=== PATIENT | male | born 1995 | race Caucasian/White ===

== ENCOUNTER 2016-10-10 19:16 | Inpatient (IN) | payer BC ==
[~2016-10-10] VITALS: Ht 180.3 cm; Wt 103.0 kg
[~2016-10-10 19:16] MED LIST: HYDR25SU20 PR; OMEP40CA PO
[2016-10-10] MEDS ORDERED: SODIUM CHLORIDE 0.9% 1000ML 1,000 ML IV STA (21:35)
[2016-10-10] MEDS ORDERED: ADAL1KIT SC (21:41)
[2016-10-10] MEDS ORDERED: PRED-301 PO (21:41)
[2016-10-10] MEDS ORDERED: OPTIRAY 320 IV PRN (21:45)
--- NOTE | 2016-10-10 22:27 | EMERGENCY ROOM VISIT NOTE ---
History First contact with patient: 21:26 Chief Complaint: GI ASSESSMENT Stated Complaint: ULCERATIVE COLITIS Nursing Triage Summary: Pt c/o "problems going to the bathroom a lot. I also have diarrhea. sometimes it hits me right away and sometimes I can't". Associated nausea. cramping pain when trying to go to bathroom. Pt reports ongoing issues for the last 4 days. Hx of Ulcerative colitis History of Present Illness The patient is a 21 year old male who presents to the Emergency Room with complaints of diarrhea and abdominal cramping for the past four days. He states he is having loose and watery stools, 3-4 per day, not grossly bloody or black, not painful. He does note a pink tinge to his bowel movements since they have become more watery. He has some associated nausea with bowel movements, but denies vomiting. He also complains of generalized fatigue for several weeks. He has history of ulcerative colitis, is followed by Dr. Weber with GI, currently treated on Prednisone 20 mg daily, and Humira which he was changed to about one month ago because his previous medication "was not working and I was having a lot of problems with my colitis." He does also complain of mild LLQ pain since yesterday. He denies any fevers, chills, chest pain, shortness of breath, dizziness or passing out, vomiting, urinary symptoms. Review of Systems A complete 10 point review of systems was reviewed with the patient with pertinent positives and negatives as per history of present illness. All else were negative. Social History Smoking Status: Never Smoker Current/Historical Medications Scheduled Adalimumab (Humira), 1 DOSE SC UD Prednisone (Prednisone), 5 MG PO UD Allergies Coded Allergies: No Known Allergies (Unverified , 12/05/15) Physical Exam Vital Signs Date Time Temp Pulse Resp B/P (MAP) Pulse Ox O2 Delivery O2 Flow Rate FiO2 10/10/16 23:30 75 18 124/55 97 Room Air 10/10/16 19:25 37.1 89 18 125/82 98 Room Air Physical Exam CONSTITUTIONAL: No acute distress. Nontoxic appearing. Well hydrated. Well appearing and well nourished. Alert and oriented X 4 with normal affect. HEENT: Normocephalic, atraumatic. Pupils equal, round and reactive to light, EOMI. TMs normal. Pharynx normal. Pale conjunctiva. NECK: Supple, full active range of motion without discomfort. RESPIRATORY: Clear to auscultation bilaterally with no wheezing, crackles, rhonchi or stridor. Equal expansion bilaterally. CARDIOVASCULAR: Regular rate and rhythm with no murmurs, rubs or gallops. Normal peripheral perfusion. No edema. GASTROINTESTINAL: Soft, nondistended. Bowel sounds present in all quadrants. Mild left lower quadrant tenderness to palpation, no rebound, no guarding. Digital rectal exam performed, nontender on exam, no masses, minimal stool in the rectal vault, guaiac positive. MUSCULOSKELETAL: Full range of motion of all joints without discomfort. INTEGUMENTARY: No rash or other significant dermatologic conditions noted. NEUROLOGIC: Cranial nerves II-XII grossly intact. No focal neurologic deficits noted. Medical Decision & Procedures Laboratory Results 10/10/16 22:00 Red Blood Count 4.35, Mean Corpuscular Volume 67.6, Mean Corpuscular Hemoglobin 16.8, Mean Corpuscular Hemoglobin Concent 24.8, Mean Platelet Volume 8.4, Neutrophils (%) (Auto) 91.0, Lymphocytes (%) (Auto) 6.7, Monocytes (%) (Auto) 1.8, Eosinophils (%) (Auto) 0.0, Basophils (%) (Auto) 0.3, Neutrophils # (Auto) 5.58, Lymphocytes # (Auto) 0.41, Monocytes # (Auto) 0.11, Eosinophils # (Auto) 0.00, Basophils # (Auto) 0.02 10/10/16 22:00 Test 10/10/16 00:00 10/10/16 22:00 Urine Color YELLOW Urine Appearance CLEAR (CLEAR) Urine pH 7.5 (4.5-7.5) Urine Specific [place] 1.006 (1.000-1.030) Urine Protein NEG (NEG) Urine Glucose (UA) NEG (NEG) Urine Ketones NEG (NEG) Urine Occult Blood NEG (NEG) Urine Nitrite NEG (NEG) Urine Bilirubin NEG (NEG) Urine Urobilinogen NEG (NEG) Urine Leukocyte Esterase NEG (NEG) White Blood Count 6.13 K/uL (4.8-10.8) Red Blood Count 4.35 M/uL (4.7-6.1) Hemoglobin 7.3 g/dL (14.0-18.0) Hematocrit 29.4 % (42-52) Mean Corpuscular Volume 67.6 fL (80-100) Mean Corpuscular Hemoglobin 16.8 pg (25-34) Mean Corpuscular Hemoglobin Concent 24.8 g/dl (32-36) Platelet Count 420 K/uL (130-400) Mean Platelet Volume 8.4 fL (7.4-10.4) Neutrophils (%) (Auto) 91.0 % Lymphocytes (%) (Auto) 6.7 % Monocytes (%) (Auto) 1.8 % Eosinophils (%) (Auto) 0.0 % Basophils (%) (Auto) 0.3 % Neutrophils # (Auto) 5.58 K/uL (1.4-6.5) Lymphocytes # (Auto) 0.41 K/uL (1.2-3.4) Monocytes # (Auto) 0.11 K/uL (0.11-0.59) Eosinophils # (Auto) 0.00 K/uL (0-0.5) Basophils # (Auto) 0.02 K/uL (0-0.2) RDW Standard Deviation 45.9 fL (36.4-46.3) RDW Coefficient of Variation 18.5 % (11.5-14.5) Immature Granulocyte % (Auto) 0.2 % Immature Granulocyte # (Auto) 0.01 K/uL (0.00-0.02) Hypochromasia PRESENT Microcytosis PRESENT Tear Drop Cells 1+ Ovalocytes 2+ Schistocytes OCCASIONAL Erythrocyte Sedimentation Rate 23 mm/hr (0-14) Anion Gap 9.0 mmol/L (3-11) Est Creatinine Clear Calc Drug Dose 127.6 ml/min Estimated GFR () 109.1 Estimated GFR (Non- 94.1 BUN/Creatinine Ratio 7.6 (10-20) Calcium Level 8.9 mg/dl (8.5-10.1) Total Bilirubin 0.3 mg/dl (0.2-1) Aspartate Amino Transf (AST/SGOT) 9 U/L (15-37) Alanine Aminotransferase (ALT/SGPT) 21 U/L (12-78) Alkaline Phosphatase 38 U/L (45-117) C-Reactive Protein 0.72 mg/dl (0-0.29) Total Protein 7.5 gm/dl (6.4-8.2) Albumin 3.8 gm/dl (3.4-5.0) Globulin 3.7 gm/dl (2.5-4.0) Albumin/Globulin Ratio 1.0 (0.9-2) Lipase 122 U/L (73-393) Medications Administered Medications (Trade) Dose Ordered Sig/Terri Route Start Time Stop Time Status Last Admin Dose Admin Sodium Chloride 1,000 ml @ 999 mls/hr Q1H1M STAT IV 10/10/16 21:35 10/10/16 22:35 DC 10/10/16 22:06 999 MLS/HR Medical Decision CC: Patient presenting with complaint of diarrhea and abdominal cramping Interpretation of Labs: No leukocytosis, significant anemia, no significant electrolyte abnormalities, normal renal function, normal liver function. No UTI. Elevated inflammatory markers. Differential Diagnosis: Includes, but not limited to ulcerative colitis flare, intra-abdominal abscess, bowel perforation, colitis, gastroenteritis, diverticulitis, dehydration, electrolyte abnormalities, anemia Medication Reconciliation: I attest that I have personally reviewed the patient' s current medication list. Vital signs review: I reviewed the patient's vital signs and interpret them as follows: T: Afebrile; BP: Normotensive; HR: WNL; RR: WNL; Pulse Ox: WNL on RA. Blood pressure screening: The patient was found to have normal blood pressure on screening and does not require follow-up for repeat blood pressure check. Summary: Patient was evaluated at bedside, history of physical exam performed. Patient is alert and oriented, no acute distress and nontoxic appearing. He appears well-hydrated, but does appear slightly pale. He does have mild tenderness in the left lower quadrant to palpation. Rectal exam with guaiac positive stool. Patient discussed with Dr. Mathur, who agrees with my assessment and plan. Labs reviewed, concerning for significant anemia, suspect this is more likely chronic or subacute in nature, given elevated RDW count and gradual onset of symptoms of fatigue. Type and cross ordered, plan for 2 units PRBCs to be transfused. Awaiting this from the blood bank. Patient consent signed. CT reviewed, consistent with acute flare of colitis with wall thickening and pericolic inflammatory changes involving the descending and rectosigmoid colon. Prominent lymph nodes also noted along the adjacent mesentery. No free air or free fluid to suggest perforation, no abscess noted, no bowel obstruction. Patient discussed with Dr. Delong, hospitalist, who agrees to evaluate the patient for admission. Patient reassessed multiple times throughout ED stay, he remained stable and without any complaints. Impression Primary Impression: Acute ulcerative colitis with rectal bleeding Additional Impression: Anemia Departure Information Referrals No Doctor, Assigned (PCP) Patient Instructions [facility] Problem Qualifiers Additional Impression: Anemia Anemia type: unspecified type Qualified Codes: D64.9 - Anemia, unspecified
[2016-10-10 22:36] LABS: BUN/CREATININE RATIO 7.6 (10-20); CREATININE 1.1 mg/dl (0.60-1.40)
[2016-10-10 22:46] LABS: CALCIUM 8.9 mg/dl (8.5-10.1)
[2016-10-10 22:52] LABS: C-REACTIVE PROTEIN 0.72 mg/dl (0-0.29)
[2016-10-10 23:02] LABS: HEMATOCRIT 29.4 % (42-52); MEAN CELL VOLUME 67.6 fL (80-100); MEAN CORPUSCULAR HEMOGLOBIN 16.8 pg (25-34); MEAN CORPUSCULAR HGB CONC 24.8 g/dl (32-36); MEAN PLATELET VOLUME 8.4 fL (7.4-10.4); PLATELET COUNT 420 K/uL (130-400); RED BLOOD COUNT 4.35 M/uL (4.7-6.1); WHITE BLOOD COUNT 6.13 K/uL (4.8-10.8)
[2016-10-10 23:14] LABS: URINE APPEARANCE CLEAR (CLEAR); URINE BILIRUBIN NEG (NEG); URINE COLOR YELLOW; URINE NITRITE NEG (NEG); URINE PH 7.5 (4.5-7.5); URINE SPECIFIC GRAVITY 1.006 (1.000-1.030); UROBILINOGEN NEG (NEG); ZZUR CULT IF INDIC CLEAN CATCH NO
[2016-10-10 23:16] LABS: MANUAL MICROSCOPIC REQUIRED? NO; REVIEW REQ? NO
[2016-10-10 23:42] LABS: BASO % 0.3 %; BASO ABS # 0.02 K/uL (0-0.2); COMPLETE YES; HYPOCHROMIA PRESENT; IG% 0.2 %; LYMPH % 6.7 %; LYMPH ABS # 0.41 K/uL (1.2-3.4); MICROCYTOSIS PRESENT; MONO % 1.8 %; OVALOCYTES 2+; SCHISTOCYTES OCCASIONAL; TEAR DROP CELLS 1+
[2016-10-11] VITALS (12 sets, daily range): BP systolic 100–130; BP diastolic 62–72; PULSE 60–83; TEMP 36.3–37; O2SAT 95–99; Ht 180.3 cm; Wt 103.0 kg
[2016-10-11 00:58] LABS: MAGNESIUM 2.6 mg/dl (1.8-2.4)
[2016-10-11] MEDS ORDERED: KETOROLAC TROMETHAMINE 30 MG/ML VIAL IV PRN (01:30)
[2016-10-11] MEDS ORDERED: ONDANSETRON INJ 2 MG/ML 2 ML VIAL IV PRN (01:30)
[2016-10-11] MEDS ORDERED: LORAZEPAM 2 MG/ML 1 ML VIAL IV PRN (01:30)
[2016-10-11] MEDS ORDERED: ACETAMINOPHEN 325 MG TAB PO PRN (01:30)
[2016-10-11] MEDS ORDERED: PROMETHAZINE HCL INJ 12.5 MG in SODIUM CHLORIDE 0.9% 50ML 50 ML IV PRN (01:30)
[2016-10-11] MEDS ORDERED: TRAMADOL HCL 50 MG TAB PO PRN (01:30)
[2016-10-11] MEDS ORDERED: MoRPHine SULFATE 4 MG/ML 1 ML CARP\\VIAL IV PRN (01:30)
[2016-10-11] MEDS: METHYLPREDNISOLONE IV 20 MG in SYRINGE 0 ML IV SCH ×3 (02:41→17:54)
--- NOTE | 2016-10-11 04:47 | HISTORY & PHYSICAL EXAMINATION ---
DATE OF ADMISSION: 10/11/2016 PRIMARY CARE DOCTOR: Aline Coronado PA-C. CHIEF COMPLAINT: Abdominal pain. HISTORY OF PRESENT ILLNESS: History is obtained from the patient and records. Medical history is significant for ulcerative colitis on chronic steroid and Humira tx. Patient switched to a [facility] GI specialist last month. Started on Humira, steroid decreased as per px. Last few days, the patient noted achy hypogastric pain, nausea, no emesis, loose watery stools, not grossly bloody. No chest pain. Admits to some shortness breath on exertion. No cough sx. Worsening abdominal sx despite px attempt to double his prednisone dose at home. Patient was brought to the Emergency Room. MEDICAL HISTORY: As above. Colonoscopy November 2015 showed a congested mucosa of the rectum, rectosigmoid colon and descending colon. OPERATIONS: Tonsillectomy, adenectomy, some toe-nail procedure. HOME MEDICATIONS: Include Humira, prednisone. ALLERGIES: No known drug allergies. FAMILY HISTORY: Colon cancer. PERSONAL AND SOCIAL HISTORY: Nonsmoker, no chronic ETOH intake, [employer] employee. REVIEW OF SYSTEMS: As per HPI, all other ROS negative. PHYSICAL EXAMINATION: VITAL SIGNS: Blood pressure was noted to be 130/69, pulse rate 90, RR 18, temperature 36.9, sats 99 on room air. GENERAL: Noted to be slightly anxious, no respiratory distress. obese. SKIN : pallor HEENT: Pale palpebral conjunctivae. Dry mucosa. NECK: No JVD. Supple. CHEST: Clear to auscultation. HEART: Regular rate and rhythm. ABDOMEN: No overt abdominal tenderness. EXTREMITIES: No edema. no tenderness NEUROLOGIC: No gross focality. LABORATORY DATA: Hemoglobin 7.3, hematocrit 29.4, white cell count 10, platelets 420. Sodium 141, potassium 4, chloride 106, CO2 26, BUN noted to be 8, creatinine 1.1, glucose 117. Stool hemoccult done in the ER was heme positive. Outpatient hemoglobin Nov 2015 was noted to be 14.5; February 2016 was 11.7. IMAGING DATA: CT of the abdomen and pelvis initial read showed wall thickening and pericolic inflammatory changes involving the descending and rectosigmoid colon consistent with colitis, prominent lymph nodes along the adjacent mesentery. Chest x-ray as per my interpretation : no infiltrate, borderline cardiac enlargement. ASSESSMENT: 1. Colitis inflammatory bowel disease flare-up rule out Clostridium difficile diarrhea px is not toxic 2. Symptomatic anemia secondary to slow LGIB. PLAN: GMF stool C. difficile. Solu-Medrol IV for now for IBD flare up GI consult RE colitis Transfuse pRBC for symptomatic anemia. DVT prophylaxis, SCDs RE anemia 2 to slow LGIB Full code. MTDD
--- NOTE | 2016-10-11 06:35 | DIAGNOSTIC IMAGING REPORT ---
CT ABD/PELVIS IV CONTRAST ONLY CLINICAL HISTORY: Diarrhea and left lower quadrant abdominal pain. History of ulcerative colitis. COMPARISON STUDY: None. TECHNIQUE: Following the IV administration of 92 mL of Optiray-320, CT scan of the abdomen and pelvis was performed from the lung bases to the proximal femurs. Images are reviewed in the axial, sagittal, and coronal planes. IV contrast was administered without complication. CT DOSE: 541.76 mGy.cm FINDINGS: Lower chest: The heart is normal in size and configuration, without pericardial effusion. The lung bases and pleural spaces are clear. Liver: The contrast-enhanced liver is normal in size, contour, and attenuation. There is no intrahepatic biliary ductal dilatation. The hepatic veins and portal veins are patent. Gallbladder: Contracted Spleen: Normal in size and attenuation. Pancreas: Unremarkable. Adrenal glands: Unremarkable. Kidneys: There is symmetric renal cortical enhancement. The kidneys are normal in size without hydronephrosis. Bowel: There are no transition zones indicate bowel obstruction. Bowel evaluation is somewhat limited given the lack of orally administered contrast. The appendix appears normal. There is mild wall thickening involving the descending colon and rectosigmoid. Findings are consistent with a colitis. Peritoneum: There is no intraperitoneal free air or abdominal ascites. Vasculature: The abdominal aorta is normal in course and caliber. Adenopathy: There are mildly prominent lymph nodes within the mesentery the left colon. These are likely reactive. Pelvic viscera: The bladder, and pelvic viscera are unremarkable. Skeletal structures: No destructive osseous lesions are seen. IMPRESSION: 1. No evidence of bowel obstruction. No evidence of free air 2. Normal appendix 3. Bowel wall thickening involving the descending colon and rectosigmoid. The findings are consistent with a colitis (infectious versus inflammatory bowel disease) Electronically signed by: Jaime Jimenes M.D. 10/11/2016 6:34 AM Dictated Date/Time: 10/11/2016 6:31 AM
[2016-10-11 06:41] LABS: HEMATOCRIT 28.2 % (42-52); MEAN CELL VOLUME 68.8 fL (80-100); MEAN CORPUSCULAR HEMOGLOBIN 17.6 pg (25-34); MEAN CORPUSCULAR HGB CONC 25.5 g/dl (32-36); MEAN PLATELET VOLUME 8.9 fL (7.4-10.4); PLATELET COUNT 357 K/uL (130-400); WHITE BLOOD COUNT 4.37 K/uL (4.8-10.8)
[2016-10-11 06:46] LABS: INR 0.9 (0.9-1.1); PARTIAL THROMBOPLASTIN RATIO 0.9; PROTHROMBIN TIME (PATIENT) 10.1 SECONDS (9.0-12.0)
--- NOTE | 2016-10-11 06:57 | DIAGNOSTIC IMAGING REPORT ---
CHEST ONE VIEW PORTABLE CLINICAL HISTORY: sob dyspnea COMPARISON STUDY: No previous studies for comparison. FINDINGS: The bones soft tissues and hemidiaphragms are normal. The cardiomediastinal silhouette is normal. The lungs are clear. The pulmonary vasculature is normal. IMPRESSION: Negative chest. Electronically signed by: Maynor Chandler M.D. 10/11/2016 6:56 AM Dictated Date/Time: 10/11/2016 6:56 AM
[2016-10-11 07:07] LABS: BASO % 0.5 %; BASO ABS # 0.02 K/uL (0-0.2); COMPLETE YES; EOS % 0.2 %; HYPOCHROMIA PRESENT; IG% 0.2 %; LYMPH % 12.6 %; LYMPH ABS # 0.55 K/uL (1.2-3.4); MICROCYTOSIS PRESENT; MONO % 4.8 %; NEUT % 81.7 %; OVALOCYTES 1+; SCHISTOCYTES 1+; TEAR DROP CELLS 1+
[2016-10-11 07:15] LABS: FERRITIN 1.5 ng/ml (8.0-388.0)
--- NOTE | 2016-10-11 09:50 | Gastrointestinal Consultation ---
Gastrointestinal Consultation Date of Consultation: Oct 11, 2016 Attending Physician: Dr. Delong Consulting Physician: Dr. Rice/RADHA Franco Reason for Consultation: Colitis History of Present Illness Patient is a 21 year old male with a history of ulcerative colitis previously diagnosed by Dr. Montes in April of 2015. Initially, his disease was limited to the rectum and he was treated with rectal steroids as he was unable to obtain Canasa from insurance. Despite treatment, he had ongoing symptoms and was noted to have left-sided colitis. Due to this, he was treated with oral corticosteroids and Lialda. Despite this, symptoms persisted and active disease was evident on imaging. Therefore, he was recommended to start Humira. The patient had decided to transfer GI care to our office due to frustration with ongoing symptoms and was seen by me on September 05, 2016. At that time, he was just about to start Humira induction therapy. I had ordered laboratory testing with CBC, CMP and CRP at that time but patient did not have testing performed. After starting the induction injections, the patient states he was asymptomatic but after one week began to have returning abdominal pain as well as fecal urgency. Bowel frequency was 3 times per day. No overt GIB but he does report progressive fatigue. He states he continues to feel his rectum "tensing" with the need to defecate but he is not having any significant diarrhea. At present, he denies any abdominal pain, fever or chills, nausea or vomiting, arthralgias, myalgias, eye pain/redness or fatigue. Laboratory testing on arrival demonstrated a profound microcytic anemia with a hemoglobin of 7.3 and hematocrit of 29.4.. Platelet count was elevated at 420 and CRP was elevated at 0.72. CT imaging was obtained and consistent with persistent left-sided colitis. He has been started on IV corticosteroids and C Diff testing has been ordered. Patient remains on a clear liquid diet. Past Medical/Surgical History Medical Problems: (1) Acute ulcerative colitis with rectal bleeding Status: Acute (2) Anemia Status: Acute Past Medical History: 1. Ulcerative colitis 2. Varicella 3. Ingrown toenail Past Surgical History: 1. T&A 2. Toe nail surgery 3. Complete colonoscopy 4. Oral tooth extraction Family History PGF with colon cancer. Negative for IBD Social History Smoking Status: Never Smoker Alcohol Use: none Drug Use: none Marital Status: single Occupation Status: employed Allergies Coded Allergies: No Known Allergies (Unverified , 12/05/15) Current Medications Home Meds and Scripts Medications Dose Route/Sig Max Daily Dose Days Date Category Dose Instructions Prednisone 5 Mg Tab 5 Mg PO UD 10/10/16 Reported TAKE THIS MEDICATION DAILY MD DIRECTS Humira (Adalimumab) 40 Mg/0.8 Ml Kit 1 Dose SC UD 10/10/16 Reported STARTED KIT PRESCRIBED 09/09/2016, TAKE MD DIRECTS Review of Systems See HPI for pertinent positives & negatives. A total of 10 systems reviewed and were otherwise negative. Physical Exam Date Time Temp Pulse Resp B/P (MAP) Pulse Ox O2 Delivery O2 Flow Rate FiO2 10/11/16 08:15 Room Air 10/11/16 07:22 37.0 67 16 100/62 (75) 97 Room Air 10/11/16 05:00 36.8 65 18 111/68 97 10/11/16 04:30 36.7 79 20 120/70 99 10/11/16 03:56 36.7 70 18 116/71 98 10/11/16 03:30 36.8 83 20 115/72 98 10/11/16 03:15 36.9 60 18 117/69 98 10/11/16 03:05 36.8 66 20 121/70 98 10/11/16 03:00 36.8 66 20 121/70 98 10/11/16 01:40 36.9 71 18 130/69 99 Room Air 10/11/16 01:32 71 18 139/76 96 10/11/16 00:57 68 18 128/73 97 Room Air 10/10/16 23:30 75 18 124/55 97 Room Air 10/10/16 19:25 37.1 89 18 125/82 98 Room Air General Appearance: WD/WN, no apparent distress Eyes: EOMI ENT: hearing grossly normal Neck: supple Respiratory/Chest: lungs clear, normal breath sounds, no respiratory distress Cardiovascular: regular rate, rhythm, no gallop, no murmur Abdomen: normal bowel sounds, non tender, soft Extremities: no pedal edema Neurologic/Psych: alert, normal mood/affect, oriented x 3 Skin: warm/dry Laboratory Results Last 24 Hours Test 10/10/16 22:00 10/11/16 05:51 White Blood Count 6.13 K/uL 4.37 K/uL Red Blood Count 4.35 M/uL 4.10 M/uL Hemoglobin 7.3 g/dL 7.2 g/dL Hematocrit 29.4 % 28.2 % Mean Corpuscular Volume 67.6 fL 68.8 fL Mean Corpuscular Hemoglobin 16.8 pg 17.6 pg Mean Corpuscular Hemoglobin Concent 24.8 g/dl 25.5 g/dl Platelet Count 420 K/uL 357 K/uL Mean Platelet Volume 8.4 fL 8.9 fL Neutrophils (%) (Auto) 91.0 % 81.7 % Lymphocytes (%) (Auto) 6.7 % 12.6 % Monocytes (%) (Auto) 1.8 % 4.8 % Eosinophils (%) (Auto) 0.0 % 0.2 % Basophils (%) (Auto) 0.3 % 0.5 % Neutrophils # (Auto) 5.58 K/uL 3.57 K/uL Lymphocytes # (Auto) 0.41 K/uL 0.55 K/uL Monocytes # (Auto) 0.11 K/uL 0.21 K/uL Eosinophils # (Auto) 0.00 K/uL 0.01 K/uL Basophils # (Auto) 0.02 K/uL 0.02 K/uL RDW Standard Deviation 45.9 fL 48.5 fL RDW Coefficient of Variation 18.5 % 19.4 % Immature Granulocyte % (Auto) 0.2 % 0.2 % Immature Granulocyte # (Auto) 0.01 K/uL 0.01 K/uL Hypochromasia PRESENT PRESENT Microcytosis PRESENT PRESENT Tear Drop Cells 1+ 1+ Ovalocytes 2+ 1+ Schistocytes OCCASIONAL 1+ Erythrocyte Sedimentation Rate 23 mm/hr Sodium Level 141 mmol/L Potassium Level 4.0 mmol/L Chloride Level 106 mmol/L Carbon Dioxide Level 26 mmol/L Anion Gap 9.0 mmol/L Blood Urea Nitrogen 8 mg/dl Creatinine 1.10 mg/dl Est Creatinine Clear Calc Drug Dose 127.6 ml/min Estimated GFR () 109.1 Estimated GFR (Non- 94.1 BUN/Creatinine Ratio 7.6 Random Glucose 117 mg/dl Calcium Level 8.9 mg/dl Magnesium Level 2.6 mg/dl Total Bilirubin 0.3 mg/dl Aspartate Amino Transf (AST/SGOT) 9 U/L Alanine Aminotransferase (ALT/SGPT) 21 U/L Alkaline Phosphatase 38 U/L C-Reactive Protein 0.72 mg/dl Total Protein 7.5 gm/dl Albumin 3.8 gm/dl Globulin 3.7 gm/dl Albumin/Globulin Ratio 1.0 Lipase 122 U/L Absolute Reticulocyte Count 0.06 10^6/uL Percent Reticulocyte Count 1.4 % Prothrombin Time 10.1 SECONDS Prothromb Time International Ratio 0.9 Activated Partial Thromboplast Time 23.1 SECONDS Partial Thromboplastin Ratio 0.9 Iron Level 12 mcg/dl Total Iron Binding Capacity 391 mcg/dl Transferrin 309 mg/dl Transferrin % Saturation 3 % Ferritin 1.5 ng/ml Vitamin B12 Level 426 pg/mL Folate 14.59 ng/mL Impression Patient is a 21 year old male with a history of left-sided ulcerative colitis recently started on Humira admitted with symptomatic anemia and abdominal pain ( which has since resolved) and bowel urgency. Plan 1. Agree with C Diff study. Will add stool culture to exclude any infectious etiology to symptoms. 2. Continue clear liquid diet today with advancement to low residue as tolerated. 3. Continue IV Solu-Medrol 20 mg every 8 hours as ordered. 4. Continue Humira injections 40 mg subcutaneously every other week. 5. Supportive measures per primary team. Thank you for allowing us to participate in the care of this mutual patient. If you have any questions or concerns, please do not hesitate to contact us. Agree with RADHA Franco as above Abd: Soft, NT, ND, +BS Feeling much better this afternoon. Will advance diet as tolerated Continue current therapy
[2016-10-11 12:39] LABS: HEMATOCRIT 31.6 % (42-52)
[2016-10-11 18:41] LABS: HEMATOCRIT 31.3 % (42-52)
--- NOTE | 2016-10-11 21:10 | Progress Note ---
Medicine Progress Note Date & Time of Visit: Oct 11, 2016 at 15:20 . Subjective Admitted last night with flare of ulcerative colitis with associated severe anemia. Feels better today. No fever. No abdominal pain, nausea, vomiting. No melena or hematochezia. . Objective Last 8 Hrs Date Time Temp Pulse Resp B/P (MAP) Pulse Ox O2 Delivery O2 Flow Rate FiO2 10/11/16 20:00 Room Air 10/11/16 16:02 36.8 68 20 115/69 (84) 95 Room Air 10/11/16 16:00 97 Room Air Physical Exam: General- no distress Lungs- clear Heart- regular Abdomen- nondistended, normal bowel sounds, soft, nontender Extremities- no pretibial edema or calf tenderness Neuro- alert . Laboratory Results: Last 24 Hours Test 10/10/16 22:00 10/11/16 05:51 10/11/16 12:26 10/11/16 18:05 White Blood Count 6.13 K/uL 4.37 K/uL Red Blood Count 4.35 M/uL 4.10 M/uL Hemoglobin 7.3 g/dL 7.2 g/dL 7.9 g/dL 8.1 g/dL Hematocrit 29.4 % 28.2 % 31.6 % 31.3 % Mean Corpuscular Volume 67.6 fL 68.8 fL Mean Corpuscular Hemoglobin 16.8 pg 17.6 pg Mean Corpuscular Hemoglobin Concent 24.8 g/dl 25.5 g/dl Platelet Count 420 K/uL 357 K/uL Mean Platelet Volume 8.4 fL 8.9 fL Neutrophils (%) (Auto) 91.0 % 81.7 % Lymphocytes (%) (Auto) 6.7 % 12.6 % Monocytes (%) (Auto) 1.8 % 4.8 % Eosinophils (%) (Auto) 0.0 % 0.2 % Basophils (%) (Auto) 0.3 % 0.5 % Neutrophils # (Auto) 5.58 K/uL 3.57 K/uL Lymphocytes # (Auto) 0.41 K/uL 0.55 K/uL Monocytes # (Auto) 0.11 K/uL 0.21 K/uL Eosinophils # (Auto) 0.00 K/uL 0.01 K/uL Basophils # (Auto) 0.02 K/uL 0.02 K/uL RDW Standard Deviation 45.9 fL 48.5 fL RDW Coefficient of Variation 18.5 % 19.4 % Immature Granulocyte % (Auto) 0.2 % 0.2 % Immature Granulocyte # (Auto) 0.01 K/uL 0.01 K/uL Hypochromasia PRESENT PRESENT Microcytosis PRESENT PRESENT Tear Drop Cells 1+ 1+ Ovalocytes 2+ 1+ Schistocytes OCCASIONAL 1+ Erythrocyte Sedimentation Rate 23 mm/hr Sodium Level 141 mmol/L Potassium Level 4.0 mmol/L Chloride Level 106 mmol/L Carbon Dioxide Level 26 mmol/L Anion Gap 9.0 mmol/L Blood Urea Nitrogen 8 mg/dl Creatinine 1.10 mg/dl Est Creatinine Clear Calc Drug Dose 127.6 ml/min Estimated GFR () 109.1 Estimated GFR (Non- 94.1 BUN/Creatinine Ratio 7.6 Random Glucose 117 mg/dl Calcium Level 8.9 mg/dl Magnesium Level 2.6 mg/dl Total Bilirubin 0.3 mg/dl Aspartate Amino Transf (AST/SGOT) 9 U/L Alanine Aminotransferase (ALT/SGPT) 21 U/L Alkaline Phosphatase 38 U/L C-Reactive Protein 0.72 mg/dl Total Protein 7.5 gm/dl Albumin 3.8 gm/dl Globulin 3.7 gm/dl Albumin/Globulin Ratio 1.0 Lipase 122 U/L Absolute Reticulocyte Count 0.06 10^6/uL Percent Reticulocyte Count 1.4 % Prothrombin Time 10.1 SECONDS Prothromb Time International Ratio 0.9 Activated Partial Thromboplast Time 23.1 SECONDS Partial Thromboplastin Ratio 0.9 Iron Level 12 mcg/dl Total Iron Binding Capacity 391 mcg/dl Transferrin 309 mg/dl Transferrin % Saturation 3 % Ferritin 1.5 ng/ml Vitamin B12 Level 426 pg/mL Folate 14.59 ng/mL Assessment & Plan ULCERATIVE COLITIS Presented with abdominal pain and fecal urgency. Has noticed significant hematochezia in the past, but more recently lesser amounts of blood in stool. CT demonstrated bowel thickening of descending colon and rectosigmoid consistent with colitis. Hemoglobin was low as discussed below. Treated with bowel rest and intravenous methylprednisolone. Seen in consultation by GI. Continued therapy with IV methylprednisolone recommended. Advance diet as tolerated. ANEMIA Hemoglobin on admission 7.3 with MCV of 67. Iron levels low. Iron deficiency anemia secondary to chronic GI blood loss. Received 1 unit of packed RBCs. Will need iron supplementation. VTE PROPHYLAXIS No anticoagulants due to GI bleeding. SCD's. Ambulate. DISPOSITION Expected discharge to home. GI follow-up with RADHA Franco + Dr. Rice. . Current Inpatient Medications: Current Inpatient Medications Medications (Trade) Dose Ordered Sig/Terri Route Start Time Stop Time Status Last Admin Dose Admin Ioversol (Optiray 320) 100 ml UD PRN IV 10/10/16 21:45 10/14/16 21:44 Methylprednisolone Sodium Succinate 20 mg/Syringe 0.32 ml @ 1.5 mls/min Q8H IV 10/11/16 02:00 11/10/16 01:59 10/11/16 17:54 1.5 MLS/MIN Acetaminophen (Tylenol Tab) 650 mg Q4H PRN PO 10/11/16 01:30 11/10/16 01:29 Tramadol HCl (Ultram Tab) 25 mg Q6H PRN PO 10/11/16 01:30 11/10/16 01:29 Ketorolac Tromethamine (Toradol Inj) 30 mg Q6H PRN IV 10/11/16 01:30 10/16/16 01:29 Morphine Sulfate (MoRPHine SULFATE INJ) 4 mg Q6H PRN IV 10/11/16 01:30 10/25/16 01:29 Ondansetron HCl (Zofran Inj) 4 mg Q6H PRN IV 10/11/16 01:30 11/10/16 01:29 Promethazine HCl 12.5 mg/Sodium Chloride 50.5 ml @ 204 mls/hr Q6H PRN IV 10/11/16 01:30 11/10/16 01:29 Lorazepam (Ativan Inj) 0.5 mg Q4H PRN IV 10/11/16 01:30 11/10/16 01:29
[2016-10-12] MEDS: METHYLPREDNISOLONE IV 20 MG in SYRINGE 0 ML IV SCH (02:06)
[2016-10-12 07:10] LABS: HEMATOCRIT 30.4 % (42-52); MEAN CELL VOLUME 68.6 fL (80-100); MEAN CORPUSCULAR HEMOGLOBIN 17.6 pg (25-34); MEAN CORPUSCULAR HGB CONC 25.7 g/dl (32-36); MEAN PLATELET VOLUME 8.6 fL (7.4-10.4); PLATELET COUNT 382 K/uL (130-400); RED BLOOD COUNT 4.43 M/uL (4.7-6.1); WHITE BLOOD COUNT 5.84 K/uL (4.8-10.8)
[2016-10-12 07:33] LABS: BUN/CREATININE RATIO 9.6 (10-20); CALCIUM 8.5 mg/dl (8.5-10.1); CREATININE 0.93 mg/dl (0.60-1.40); POTASSIUM 4.3 mmol/L (3.5-5.1)
[2016-10-12 07:35] LABS: COMPLETE YES; HYPOCHROMIA PRESENT; IG% 0.2 %; LYMPH % 10.4 %; LYMPH ABS # 0.61 K/uL (1.2-3.4); MICROCYTOSIS PRESENT; MONO % 8.2 %; NEUT % 81.2 %; OVALOCYTES 1+; TEAR DROP CELLS 1+
[2016-10-12 07:54] VITALS: BP 118/73; PULSE 59; TEMP 36.9; O2SAT 97
[2016-10-12 08:00] VITALS: O2SAT 97
--- NOTE | 2016-10-12 10:26 | Progress Note ---
Medicine Progress Note Date & Time of Visit: Oct 12, 2016 at 10:15 . Subjective Doing well. No fever or chills. No abdominal pain, nausea, vomiting, diarrhea, melena, hematochezia. Ambulating. No extreme fatigue. . Objective Last 8 Hrs Date Time Temp Pulse Resp B/P (MAP) Pulse Ox O2 Delivery O2 Flow Rate FiO2 10/12/16 07:54 36.9 59 18 118/73 (88) 97 Room Air Physical Exam: General- no distress Lungs- clear Heart- regular Abdomen- nondistended, normal bowel sounds, soft, nontender Extremities- no pretibial edema or calf tenderness Neuro- alert . Laboratory Results: Last 24 Hours Test 10/11/16 12:26 10/11/16 18:05 10/12/16 06:45 Hemoglobin 7.9 g/dL 8.1 g/dL 7.8 g/dL Hematocrit 31.6 % 31.3 % 30.4 % White Blood Count 5.84 K/uL Red Blood Count 4.43 M/uL Mean Corpuscular Volume 68.6 fL Mean Corpuscular Hemoglobin 17.6 pg Mean Corpuscular Hemoglobin Concent 25.7 g/dl Platelet Count 382 K/uL Mean Platelet Volume 8.6 fL Neutrophils (%) (Auto) 81.2 % Lymphocytes (%) (Auto) 10.4 % Monocytes (%) (Auto) 8.2 % Eosinophils (%) (Auto) 0.0 % Basophils (%) (Auto) 0.0 % Neutrophils # (Auto) 4.74 K/uL Lymphocytes # (Auto) 0.61 K/uL Monocytes # (Auto) 0.48 K/uL Eosinophils # (Auto) 0.00 K/uL Basophils # (Auto) 0.00 K/uL RDW Standard Deviation 48.2 fL RDW Coefficient of Variation 19.2 % Immature Granulocyte % (Auto) 0.2 % Immature Granulocyte # (Auto) 0.01 K/uL Hypochromasia PRESENT Microcytosis PRESENT Tear Drop Cells 1+ Ovalocytes 1+ Sodium Level 144 mmol/L Potassium Level 4.3 mmol/L Chloride Level 109 mmol/L Carbon Dioxide Level 27 mmol/L Anion Gap 8.0 mmol/L Blood Urea Nitrogen 9 mg/dl Creatinine 0.93 mg/dl Est Creatinine Clear Calc Drug Dose 150.9 ml/min Estimated GFR () 133.6 Estimated GFR (Non- 115.3 BUN/Creatinine Ratio 9.6 Random Glucose 105 mg/dl Calcium Level 8.5 mg/dl Assessment & Plan ULCERATIVE COLITIS Presented with abdominal pain and fecal urgency. Has noticed significant hematochezia in the past, but more recently lesser amounts of blood in stool. CT demonstrated bowel thickening of descending colon and rectosigmoid consistent with colitis. Hemoglobin was low as discussed below. Treated with bowel rest and intravenous methylprednisolone with improvement. Seen in consultation by GI. Diet advanced without difficulty. DC on prednisone taper starting at 40 mg daily; continue Humira. ANEMIA Hemoglobin on admission 7.3 with MCV of 67. Iron levels low. Iron deficiency anemia secondary to chronic GI blood loss. Received 1 unit of packed RBCs. Hgb today = 7.8. No SOB or extreme fatigue. No need for additional transfusions at this time per guidelines. Start iron supplementation with FeSoO4 BID. Follow H/H. VTE PROPHYLAXIS No anticoagulants due to GI bleeding. SCD's. Ambulating. DISPOSITION Discharge to home. Primary Care follow-up with Aline Coronado PA-C. GI follow-up with RADHA Franco + Dr. Rice. . Consultants: GI with Gissel Weber PA-C + Dr. Rice . Procedures: CT abdomen + pelvis IV fluids IV meds transfusion 1 unit pRBC's . Current Inpatient Medications: Current Inpatient Medications Medications (Trade) Dose Ordered Sig/Terri Route Start Time Stop Time Status Last Admin Dose Admin Ioversol (Optiray 320) 100 ml UD PRN IV 10/10/16 21:45 10/14/16 21:44 Acetaminophen (Tylenol Tab) 650 mg Q4H PRN PO 10/11/16 01:30 11/10/16 01:29 Tramadol HCl (Ultram Tab) 25 mg Q6H PRN PO 10/11/16 01:30 11/10/16 01:29 Ketorolac Tromethamine (Toradol Inj) 30 mg Q6H PRN IV 10/11/16 01:30 10/16/16 01:29 Morphine Sulfate (MoRPHine SULFATE INJ) 4 mg Q6H PRN IV 10/11/16 01:30 10/25/16 01:29 Ondansetron HCl (Zofran Inj) 4 mg Q6H PRN IV 10/11/16 01:30 11/10/16 01:29 Promethazine HCl 12.5 mg/Sodium Chloride 50.5 ml @ 204 mls/hr Q6H PRN IV 10/11/16 01:30 11/10/16 01:29 Lorazepam (Ativan Inj) 0.5 mg Q4H PRN IV 10/11/16 01:30 11/10/16 01:29 Prednisone (PredniSONE TAB) 40 mg DAILY PO 10/12/16 09:00 11/11/16 08:59 10/12/16 08:50 40 MG
[2016-10-12] MEDS ORDERED: PRED10TA PO (10:28)
[2016-10-12] MEDS ORDERED: FERR325T5 PO (10:28)
--- NOTE | 2016-10-12 11:03 | Discharge Instructions ---
Discharge Instructions Date of Service Oct 12, 2016. Admission Reason for Admission: abdominal pain, weakness . Discharge Discharge Diagnosis / Problem: flare ulcerative colitis, anemia Discharge Goals Goal(s): Decrease discomfort, Improve function, Improve disease control Activity Recommendations Activity Limitations: resume your previous activity . Instructions / Follow-Up Instructions / Follow-Up APPOINTMENTS: PRIMARY CARE 10/17/2016 11:20 AM Annalisa Johnson DO (covering for Aline Coronado) [facility] GASTROENTEROLOGY RADHA Franco + Dr. Rice. Please call their office and schedule a follow-up appointment in about 2 week. INSTRUCTIONS: Prednisone taper: 40 mg daily for 1 week 35 mg daily for 1 week 30 mg daily for 1 week 25 mg daily for 1 week 20 mg daily for 1 week 15 mg daily for 1 week 10 mg daily for 1 week then 5 mg daily pending further instructions from Gastroenterology Start ferrous sulfate (iron) 1 pill twice a day. It may make your stools dark. Seek medical attention if you have: * temperature above 101 * chest pain or trouble breathing * severe abdominal pain, nausea, vomiting * severe diarrhea, dark stools or severely bloody stools * any unanswered questions or concerns Call 911 if symptoms are severe. Call if you have any questions or problems. My cell # is [phone]. You can also reach a [facility] hospitalist on duty at [facility] 24 hours a day by calling [phone]. Please take good care of yourself. Nimesh Sullivan . Current Hospital Diet Patient's current hospital diet: Low Fiber Diet Discharge Diet Recommended Diet: Low Fiber Diet (low fiber diet until current flare gets better, then regular diet) Pending Studies Studies pending at discharge: no Medical Emergencies . Who to Call and When: Medical Emergencies: If at any time you feel your situation is an emergency, please call 911 immediately. . Non-Emergent Contact Non-Emergency issues call your: Primary Care Provider, [employer] . . "Provider Documentation" section prepared by Nimesh Sullivan. . VTE Core Measure Inpt VTE Proph given/why not?: SCD's
[2016-10-12 11:12] VITALS: BP 118/73; PULSE 59; TEMP 36.9; O2SAT 97
--- NOTE | 2016-10-12 20:24 | Discharge Summary ---
Discharge Summary Date of Service Oct 12, 2016. Discharge Summary Admission Date: Oct 11, 2016 at 00:51 Discharge Date: Oct 12, 2016 Discharge Disposition: Home Principal Diagnosis: flare of ulcerative colitis iron deficiency anemia, severe, due to acute + chronic blood loss . Procedures: CT abdomen + pelvis IV fluids IV meds transfusion 1 unit pRBC's . Consultations: GI with Gissel Weber PA-C + Dr. Rice . Medication Reconciliation New Medications: Ferrous Sulfate (Ferrous Sulfate) 325 Mg Tab 325 MG PO BID, #60 TAB 5 Refills Prednisone Tab (Prednisone) 10 Mg Tab 0 PO UD, #100 TAB 1 Refill 40 mg daily, then taper as directed. Continued Medications: Adalimumab (Humira) 40 Mg/0.8 Ml Kit 1 DOSE SC UD STARTED KIT PRESCRIBED 09/09/2016, TAKE MD DIRECTS Discontinued Medications: Prednisone (Prednisone) 5 Mg Tab 5 MG PO UD, TAB TAKE THIS MEDICATION DAILY MD DIRECTS Admission Information HPI (per Admitting provider): History is obtained from the patient and records. Medical history is significant for ulcerative colitis on chronic steroid and Humira tx. Patient switched to a [facility] GI specialist last month. Started on Humira, steroid decreased as per px. Last few days, the patient noted achy hypogastric pain, nausea, no emesis, loose watery stools, not grossly bloody. No chest pain. Admits to some shortness breath on exertion. No cough sx. Worsening abdominal sx despite px attempt to double his prednisone dose at home. Patient was brought to the Emergency Room. . Physical Exam (per Admitting): VITAL SIGNS: Blood pressure was noted to be 130/69, pulse rate 90, RR 18, temperature 36.9, sats 99 on room air. GENERAL: Noted to be slightly anxious, no respiratory distress. obese. SKIN : pallor HEENT: Pale palpebral conjunctivae. Dry mucosa. NECK: No JVD. Supple. CHEST: Clear to auscultation. HEART: Regular rate and rhythm. ABDOMEN: No overt abdominal tenderness. EXTREMITIES: No edema. no tenderness NEUROLOGIC: No gross focality. . Hospital Course ULCERATIVE COLITIS Presented with abdominal pain and fecal urgency. Has noticed significant hematochezia in the past, but more recently lesser amounts of blood in stool. CT demonstrated bowel thickening of descending colon and rectosigmoid consistent with colitis. Hemoglobin was low as discussed below. Treated with bowel rest and intravenous methylprednisolone with improvement. Seen in consultation by GI. Diet advanced without difficulty. DC on prednisone taper starting at 40 mg daily; continue Humira. ANEMIA Hemoglobin on admission 7.3 with MCV of 67. Iron levels low. Iron deficiency anemia secondary to chronic GI blood loss. Received 1 unit of packed RBCs. Hgb day of discharge = 7.8. No SOB or extreme fatigue. No need for additional transfusions at this time per guidelines. Start iron supplementation with FeSoO4 BID. Follow H/H. VTE PROPHYLAXIS No anticoagulants due to GI bleeding. SCD's. Ambulating. DISPOSITION Discharge to home. Primary Care follow-up with Aline Coronado PA-C. GI follow-up with RADHA Franco + Dr. Rice. . Total time spent on discharge = 35 min. This includes examination of the patient, discharge planning, medication reconciliation, and communication with other providers. . Discharge Instructions Date of Service Oct 12, 2016. Admission Reason for Admission: abdominal pain, weakness . Discharge Discharge Diagnosis / Problem: flare ulcerative colitis, anemia Discharge Goals Goal(s): Decrease discomfort, Improve function, Improve disease control Activity Recommendations Activity Limitations: resume your previous activity . Instructions / Follow-Up Instructions / Follow-Up APPOINTMENTS: PRIMARY CARE 10/17/2016 11:20 AM Annalisa Johnson DO (covering for Aline Coronado) [facility] GASTROENTEROLOGY RADHA Franco + Dr. Rice. Please call their office and schedule a follow-up appointment in about 2 week. INSTRUCTIONS: Prednisone taper: 40 mg daily for 1 week 35 mg daily for 1 week 30 mg daily for 1 week 25 mg daily for 1 week 20 mg daily for 1 week 15 mg daily for 1 week 10 mg daily for 1 week then 5 mg daily pending further instructions from Gastroenterology Start ferrous sulfate (iron) 1 pill twice a day. It may make your stools dark. Seek medical attention if you have: * temperature above 101 * chest pain or trouble breathing * severe abdominal pain, nausea, vomiting * severe diarrhea, dark stools or severely bloody stools * any unanswered questions or concerns Call 911 if symptoms are severe. Call if you have any questions or problems. My cell # is [phone]. You can also reach a [facility] hospitalist on duty at [facility] [address] 24 hours a day by calling [phone]. Please take good care of yourself. Nimesh Sullivan . Current Hospital Diet Patient's current hospital diet: Low Fiber Diet Discharge Diet Recommended Diet: Low Fiber Diet (low fiber diet until current flare gets better, then regular diet) Pending Studies Studies pending at discharge: no Medical Emergencies . Who to Call and When: Medical Emergencies: If at any time you feel your situation is an emergency, please call 911 immediately. . Non-Emergent Contact Non-Emergency issues call your: Primary Care Provider, [facility] [employer] . . "Provider Documentation" section prepared by Nimesh Sullivan. . VTE Core Measure Inpt VTE Proph given/why not?: SCD's . Additional Copies To Dwayne, Aston Blank D.O.; Gissel Weber,C.R.N.P.; Aline Coronado
[2017-03-12] MEDS ORDERED: FRRS300 PO (10:19)
== END 2016-10-12 11:50 | disposition home or self-care (01) | DRG 387 ==
LOC: C.EDB 19:18 → C.MS2W 10-11 00:51 → ENRESERV 10-11 01:13
PROVIDERS: ADMIT Hospitalist; ATTEND Hospitalist
DX: K51.911 Ulcerative colitis, unspecified with rectal bleeding (principal); D50.0 Iron deficiency anemia secondary to blood loss (chronic); Z80.0 Family history of malignant neoplasm of digestive organs; Z79.52 Long term (current) use of systemic steroids; Z79.899 Other long term (current) drug therapy

== ENCOUNTER → 2017-01-08 | Outpatient (CLI) | payer BC ==
[~2017-01-08] MED LIST changes: +ADAL1KIT SC; +FERR325T5 PO; -HYDR25SU20 PR; -OMEP40CA PO; +OMEP40CA41 PO; +ONDA8TAB62 SL; +PRED10TA PO
[2017-01-08 18:00] LABS: BASO % 0.8 %; BASO ABS # 0.05 K/uL (0-0.2); COMPLETE YES; EOS % 4.8 %; HEMATOCRIT 40.1 % (42-52); IG% 0.2 %; LYMPH % 15.6 %; LYMPH ABS # 0.97 K/uL (1.2-3.4); MEAN CELL VOLUME 83.9 fL (80-100); MEAN CORPUSCULAR HEMOGLOBIN 25.5 pg (25-34); MEAN CORPUSCULAR HGB CONC 30.4 g/dl (32-36); MEAN PLATELET VOLUME 9.3 fL (7.4-10.4); MONO % 12.7 %; NEUT % 65.9 %; PLATELET COUNT 299 K/uL (130-400); RED BLOOD COUNT 4.78 M/uL (4.7-6.1); WHITE BLOOD COUNT 6.23 K/uL (4.8-10.8)
[2017-01-08 18:29] LABS: ALT/SGPT 25 U/L (12-78); AMYLASE 30 U/L (25-115); AST/SGOT 16 U/L (15-37); BLOOD UREA NITROGEN 6 mg/dl (7-18); BUN/CREATININE RATIO 5.1 (10-20); CALCIUM 8.6 mg/dl (8.5-10.1); CARBON DIOXIDE 27 mmol/L (21-32); CHLORIDE 107 mmol/L (98-107); GLUCOSE 72 mg/dl (70-99); POTASSIUM 4.1 mmol/L (3.5-5.1); SODIUM 140 mmol/L (136-145)
[2017-01-08 18:32] LABS: ALKALINE PHOSPHATASE 43 U/L (45-117)
== END | disposition home or self-care (01) ==
LOC: C.LABPBG 15:49
PROVIDERS: ATTEND Registered Nurse
DX: K51.511 Left sided colitis with rectal bleeding (principal)

== ENCOUNTER 2017-01-09 07:03 | Emergency (ER) | payer BC ==
[~2017-01-09] VITALS: Ht 180.3 cm; Wt 103.3 kg
[~2017-01-09 07:03] MED LIST changes: -ATROPINE SULFATE 0.1 MG/ML 5ML SYR IV PRN; -EpHEDrine SULFATE INJ 50 MG/ML AMP IV PRN; -FENTANYL CITRATE INJ 50 MCG/1 ML 2 ML VIAL ONE; -LIDOCAINE HCL 2% 2 ML VIAL (20MG/ML) ONE; -OMEP40CA41 PO; -ONDA8TAB62 SL; -PROPOFOL IV EMULSION 10 MG/ML 20 ML VIAL IV ONE; -SODIUM CHLORIDE 0.9% 500ML 500 ML IV ONE
[2017-01-09 07:06] VITALS: Ht 180.3 cm; Wt 103.3 kg
[2017-01-09] MEDS ORDERED: ONDANSETRON INJ 2 MG/ML 2 ML VIAL IV STA (07:21)
[2017-01-09] MEDS ORDERED: MoRPHine SULFATE 4 MG/ML 1 ML CARP\\VIAL IV STA ×2 (07:21→08:02)
[2017-01-09] MEDS ORDERED: SODIUM CHLORIDE 0.9% 1000ML 2,000 ML IV STA (07:21)
[2017-01-09] MEDS ORDERED: OMEP40CA41 PO (07:31)
[2017-01-09 07:35] LABS: HEMATOCRIT 42.6 % (42-52); MEAN CELL VOLUME 82.9 fL (80-100); MEAN CORPUSCULAR HEMOGLOBIN 25.9 pg (25-34); MEAN CORPUSCULAR HGB CONC 31.2 g/dl (32-36); MEAN PLATELET VOLUME 9.1 fL (7.4-10.4); PLATELET COUNT 303 K/uL (130-400); RED BLOOD COUNT 5.14 M/uL (4.7-6.1); WHITE BLOOD COUNT 12.67 K/uL (4.8-10.8)
[2017-01-09 07:52] LABS: BUN/CREATININE RATIO 4.3 (10-20); CALCIUM 9.3 mg/dl (8.5-10.1); CREATININE 1.5 mg/dl (0.60-1.40); POTASSIUM 3.8 mmol/L (3.5-5.1)
[2017-01-09 08:01] LABS: BASO % 0.2 %; BASO ABS # 0.03 K/uL (0-0.2); COMPLETE YES; EOS % 1.1 %; IG% 0.2 %; LYMPH % 12.5 %; LYMPH ABS # 1.58 K/uL (1.2-3.4); MONO % 8.1 %; NEUT % 77.9 %; OVALOCYTES 1+
[2017-01-09 09:20] LABS: URINE APPEARANCE CLEAR (CLEAR); URINE BILIRUBIN NEG (NEG); URINE COLOR YELLOW; URINE NITRITE NEG (NEG); UROBILINOGEN NEG (NEG)
[2017-01-09 09:24] LABS: MANUAL MICROSCOPIC REQUIRED? NO; REVIEW REQ? NO
[2017-01-09 09:29] VITALS: BP 95/44; PULSE 93; TEMP 37.3; O2SAT 95
[2017-01-09] MEDS ORDERED: ONDANSETRON HOME PACK 4MG OD TAB PO ONE (09:30)
--- NOTE | 2017-01-09 16:07 | EMERGENCY ROOM VISIT NOTE ---
History First contact with patient: 07:06 Chief Complaint: VOMITING Stated Complaint: LIGHT HEADED,DIZZY,VOMITING Nursing Triage Summary: Pt c/o n/v, stomach pain, has ulcerative colitis and has colonoscopy scheduled today. Feels blood count is low, had blood work done yesterday, unsure of results. Believes he had a fever last night because he got very hot, but did not take temp. Denies taking anything for fever "I can't keep anything down. I feel dehydrated". History of Present Illness The patient is a 21 year old male, history of ulcerative colitis, who presents to the Emergency Room with complaints of generalized abdominal pain, nausea, vomiting and feeling dehydrated. The patient underwent a bowel prep last night for colonoscopy scheduled for today at 1:45 PM. The patient reports that he did not tolerate the oral prep well. He is under the management of [facility] gastroenterology. He had lab work performed yesterday. The patient reports that he has had worsening symptoms since being weaned off of prednisone, with his last dose of prednisone on 12/30/16. The patient has also noticed increased bleeding from the rectum, with a mixture of are correct and bright red blood. It has not significantly worsened over the past several days. He rates his overall discomfort a 6 out of 10. He denies any fevers or chills. He also denies any urinary symptoms. He has had no other recent upper respiratory infections, cough, shortness of breath or headache. Review of Systems HEENT: Denies dizziness, visual problems, hearing loss, tinnitus. Denies difficulty swallowing or oral lesions. PULMONARY: Denies cough, shortness of breath, sputum production or hemoptysis. CARDIOVASCULAR: Denies chest pain, palpitations, dyspnea on exertion, orthopnea or peripheral edema. GASTROINTESTINAL: See history of present illness. GENITOURINARY: Denies dysuria, frequency, urgency or nocturia. NEUROLOGIC: Denies history of epilepsy, CVA, TIA or chronic headaches. MUSCULOSKELETAL: Denies history of joint tenderness/swelling. SKIN: Denies rashes or lesions. PSYCHIATRIC: Denies history of depression or mental illness. ENDOCRINE: Denies history of diabetes or thyroid disorders. Past Medical/Surgical History Medical Problems: (1) Colitis (2) Iron Deficiency Anemia Secondary To Blood Loss (Chronic) (3) Ulcerative Colitis, Unspecified With Rectal Bleeding Surgical Problems: (1) History of colonoscopy Family History FH: cancer Social History Smoking Status: Never Smoker Alcohol Use: none Drug Use: none Marital Status: single Occupation Status: employed Current/Historical Medications Scheduled Adalimumab (Humira), 40 MG SC UD Scheduled PRN Omeprazole (Prilosec), 40 MG PO DAILY PRN for GERD Physical Exam Vital Signs Date Time Temp Pulse Resp B/P (MAP) Pulse Ox O2 Delivery O2 Flow Rate FiO2 01/09/17 09:29 37.3 93 18 95/44 95 Room Air 01/09/17 08:34 37.8 99 18 112/53 93 Room Air 01/09/17 07:06 37.2 128 18 100/68 95 Room Air Physical Exam CONSTITUTIONAL: Healthy and well nourished. Alert and oriented X 3 with positive affect. Patient does not appear in any acute distress. HEENT: Normocephalic, atraumatic. Pupils equal, round and reactive. Ears and nares are clear. No scleral icterus or conjunctival injection/pallor. OROPHARYNX: Mucous membranes are dry. No posterior pharyngeal erythema or tonsillar hypertrophy. NECK: Full active range of motion without discomfort. RESPIRATORY: Clear to auscultation bilaterally with no wheezing, crackles, rhonchi or stridor. CARDIOVASCULAR: Regular rate and rhythm with no murmurs, rubs or gallops. GASTROINTESTINAL: Bowel sounds present in all quadrants. Patient has diffuse and mild tenderness to palpation. No obvious hepatosplenomegaly. Negative McBurney's point tenderness. Negative CVA tenderness. No focal left lower quadrant tenderness to palpation. MUSCULOSKELETAL: Full range of motion of all joints without discomfort. INTEGUMENTARY: No rash or other significant dermatologic conditions noted. HEMATOLOGIC: No ecchymosis or petechiae. NEUROLOGIC: No focal neurologic deficits noted. Medical Decision & Procedures Laboratory Results 01/09/17 07:22 Red Blood Count 5.14, Mean Corpuscular Volume 82.9, Mean Corpuscular Hemoglobin 25.9, Mean Corpuscular Hemoglobin Concent 31.2, Mean Platelet Volume 9.1, Neutrophils (%) (Auto) 77.9, Lymphocytes (%) (Auto) 12.5, Monocytes (%) (Auto) 8.1, Eosinophils (%) (Auto) 1.1, Basophils (%) (Auto) 0.2, Neutrophils # (Auto) 9.87, Lymphocytes # (Auto) 1.58, Monocytes # (Auto) 1.02, Eosinophils # (Auto) 0.14, Basophils # (Auto) 0.03 01/09/17 07:22 Test 01/09/17 07:22 01/09/17 09:05 White Blood Count 12.67 K/uL (4.8-10.8) Red Blood Count 5.14 M/uL (4.7-6.1) Hemoglobin 13.3 g/dL (14.0-18.0) Hematocrit 42.6 % (42-52) Mean Corpuscular Volume 82.9 fL (80-100) Mean Corpuscular Hemoglobin 25.9 pg (25-34) Mean Corpuscular Hemoglobin Concent 31.2 g/dl (32-36) Platelet Count 303 K/uL (130-400) Mean Platelet Volume 9.1 fL (7.4-10.4) Neutrophils (%) (Auto) 77.9 % Lymphocytes (%) (Auto) 12.5 % Monocytes (%) (Auto) 8.1 % Eosinophils (%) (Auto) 1.1 % Basophils (%) (Auto) 0.2 % Neutrophils # (Auto) 9.87 K/uL (1.4-6.5) Lymphocytes # (Auto) 1.58 K/uL (1.2-3.4) Monocytes # (Auto) 1.02 K/uL (0.11-0.59) Eosinophils # (Auto) 0.14 K/uL (0-0.5) Basophils # (Auto) 0.03 K/uL (0-0.2) RDW Standard Deviation 47.5 fL (36.4-46.3) RDW Coefficient of Variation 16.2 % (11.5-14.5) Immature Granulocyte % (Auto) 0.2 % Immature Granulocyte # (Auto) 0.03 K/uL (0.00-0.02) Ovalocytes 1+ Anion Gap 6.0 mmol/L (3-11) Est Creatinine Clear Calc Drug Dose 93.7 ml/min Estimated GFR () 75.0 Estimated GFR (Non- 64.7 BUN/Creatinine Ratio 4.3 (10-20) Calcium Level 9.3 mg/dl (8.5-10.1) Total Bilirubin 0.4 mg/dl (0.2-1) Direct Bilirubin 0.1 mg/dl (0-0.2) Aspartate Amino Transf (AST/SGOT) 14 U/L (15-37) Alanine Aminotransferase (ALT/SGPT) 24 U/L (12-78) Alkaline Phosphatase 45 U/L (45-117) Total Creatine Kinase 90 U/L (39-308) Total Protein 7.7 gm/dl (6.4-8.2) Albumin 3.7 gm/dl (3.4-5.0) Lipase 97 U/L (73-393) Urine Color YELLOW Urine Appearance CLEAR (CLEAR) Urine pH 6.0 (4.5-7.5) Urine Specific [place] 1.010 (1.000-1.030) Urine Protein NEG (NEG) Urine Glucose (UA) NEG (NEG) Urine Ketones TRACE (NEG) Urine Occult Blood NEG (NEG) Urine Nitrite NEG (NEG) Urine Bilirubin NEG (NEG) Urine Urobilinogen NEG (NEG) Urine Leukocyte Esterase NEG (NEG) The above labs were reviewed, along with lab work from yesterday. The patient did have an increase in his creatinine from 1.1 to 1.5. He also has a mild leukocytosis. Otherwise remaining labs and urinalysis were normal. Medications Administered Medications (Trade) Dose Ordered Sig/Terri Route Start Time Stop Time Status Last Admin Dose Admin Ondansetron HCl (Zofran Inj) 4 mg NOW STAT IV 01/09/17 07:21 01/09/17 07:23 DC 01/09/17 07:26 4 MG Morphine Sulfate (MoRPHine SULFATE INJ) 4 mg NOW STAT IV 01/09/17 07:21 01/09/17 07:23 DC 01/09/17 07:26 4 MG Sodium Chloride 2,000 ml @ 999 mls/hr Q2H1M STAT IV 01/09/17 07:21 01/09/17 09:21 DC 01/09/17 07:24 999 MLS/HR Morphine Sulfate (MoRPHine SULFATE INJ) 4 mg NOW STAT IV 01/09/17 08:02 01/09/17 08:05 DC 01/09/17 08:08 4 MG Ondansetron HCl (ZOFRAN ODT 4MG Home Pack) 1 homepack UD ONCE PO 01/09/17 09:30 01/09/17 09:31 DC 01/09/17 09:36 1 HOMEPACK Procedure 1. IV hydration: The patient received a normal saline 2 L bolus 2. IV medications: Morphine 4 mg and Zofran 4 mg IVP ED Course Patient history and physical exam were performed. Nurse's notes were reviewed. Vital signs were reviewed. The patient is tachycardic at 128 bpm. He is afebrile and normotensive. IV access was established, and labs were drawn. The patient was hydrated with 2 L of normal saline, and received IV medications as discussed in the previous Procedure section. Review of labs shows an interval increase in creatinine and a mild leukocytosis. Remaining labs were otherwise normal. The patient did report moderate relief of his symptoms, still feeling thirsty. The case was discussed with Dr. Watkins, ED attending physician, and Gissel GARCIA via telephone, sedation, and who was in the endoscopy suite. She reviewed labs and felt comfortable with the above treatment. They will have the patient come to the endoscopy suite around 11:30 AM. The patient was provided a home pack of Zofran ODT should he have any persistent nausea. The patient was instructed to otherwise remain nothing by mouth and proceed with his colonoscopy. He is welcome to return to the emergency department for any other concerning symptoms. The patient was happy with plan of care, and voiced understanding of all discharge instructions. Medical Decision Patient presents to the emergency department with complaint of dehydration, nausea and vomiting after undergoing a bowel prep last night for colonoscopy scheduled for this afternoon. The patient has a known history of ulcerative colitis, and has had worsening symptoms since being weaned off of prednisone. He denies any significantly worsening rectal bleeding. His lab work from yesterday and today shows hemodynamic stability. He has no other significant lab work to suggest pancreatitis or hepatitis. Urinalysis is normal. Medication Reconcilliation Current Medication List: was personally reviewed by me Blood Pressure Screening Patient's blood pressure: Normal blood pressure Impression Primary Impression: Vomiting Additional Impressions: Dehydration Acute ulcerative colitis with rectal bleeding Departure Information Referrals No Doctor, Assigned (PCP) Patient Instructions My [facility] Problem Qualifiers Primary Impression: Vomiting Vomiting type: unspecified Vomiting Intractability: non-intractable Nausea presence: with nausea Qualified Codes: R11.2 - Nausea with vomiting, unspecified
== END 2017-01-09 09:40 | disposition home or self-care (01) ==
LOC: C.EDB 07:04
DX: R11.2 Nausea with vomiting, unspecified (principal); E86.0 Dehydration; K51.911 Ulcerative colitis, unspecified with rectal bleeding; D50.0 Iron deficiency anemia secondary to blood loss (chronic); Z80.9 Family history of malignant neoplasm, unspecified; Z79.899 Other long term (current) drug therapy

== ENCOUNTER → 2017-01-09 | Day surgery (SDC) | payer BC ==
[~2017-01-09] VITALS: Ht 180.3 cm; Wt 103.6 kg
[~2017-01-09] MED LIST changes: +ATROPINE SULFATE 0.1 MG/ML 5ML SYR IV PRN; +EpHEDrine SULFATE INJ 50 MG/ML AMP IV PRN; +FENTANYL CITRATE INJ 50 MCG/1 ML 2 ML VIAL ONE; +LIDOCAINE HCL 2% 2 ML VIAL (20MG/ML) ONE; +PROPOFOL IV EMULSION 10 MG/ML 20 ML VIAL IV ONE; +SODIUM CHLORIDE 0.9% 500ML 500 ML IV ONE
[2017-01-09 12:22] VITALS: Ht 180.3 cm; Wt 103.6 kg
--- NOTE | 2017-01-09 12:38 | Endo History and Physical ---
History & Physical Date of Service: Jan 09, 2017. Chief Complaint: ULERATIVE COLITIS, RECTAL BLEEDING Referring Physician: Case History of Present Illness 21 yo CM who presents for colonoscopy secondary to ulcerative colitis and rectal bleeding. Past Surgical History Hx Cardiac Surgery: No Hx Internal Defibrillator: No Hx Pacemaker: No Hx Abdominal Surgery: No Hx Post-Op Nausea and Vomiting: No Hx Cancer Surgery: No Hx Thoracic Surgery: No Hx Orthopedic: No Hx Urinary Tract Surgery: No Family History None Social History Smoking Status: Never Smoker Hx Substance Use: No Hx Alcohol Use: Yes Allergies Coded Allergies: No Known Allergies (Unverified , 12/05/15) Current Medications Reported Home Medications Medications Dose Route/Sig Max Daily Dose Days Date Category Dose Instructions Prilosec (Omeprazole) 40 Mg Cap 40 Mg PO DAILY PRN 01/09/17 Reported Humira (Adalimumab) 40 Mg/0.8 Ml Kit 40 Mg SC UD 10/10/16 Reported 40 MG EVERY 15 DAYS, PER PATIENT. Vital Signs Weight (Kilograms): 103.64 Height (Feet): 5 Height (Inches): 11 Date Time Temp Pulse Resp B/P (MAP) Pulse Ox O2 Delivery O2 Flow Rate FiO2 01/09/17 12:30 37.1 88 16 92/52 (65) 96 Room Air Physical Exam General Appearance: WD/WN, no apparent distress Respiratory/Chest: Auscultation: breath sounds normal Cardiovascular: Heart Auscultation: RRR Abdomen: Bowel Sounds: normal Inspection & Palpation: soft, non-distended, no tenderness, guarding & rebound Assessment and Plan Assessment: 21 yo CM who presents for colonoscopy secondary to ulcerative colitis and rectal bleeding. Plan: Proceed with colonoscopy.
--- NOTE | 2017-01-09 14:02 | Discharge Instructions ---
Endoscopy Patient Instructions Date / Procedure(s) Performed Jan 09, 2017. Colonoscopy Allergy Information Coded Allergies: No Known Allergies (Unverified , 12/05/15) Discharge Date / Findings Jan 09, 2017. Left sided Ulcerative colitis s/p biopsies of Right and left colon Medication Instructions 1) Recommend discontinuing Humira 2) Start Remicade 10mg/kg every 8 weeks 3) Start Methotrexate 15mg by mouth weekly 4) Continue Prilosec 40mg by mouth daily Reported Home Medications Medications Dose Route/Sig Max Daily Dose Days Date Category Dose Instructions Prilosec (Omeprazole) 40 Mg Cap 40 Mg PO DAILY PRN 01/09/17 Reported Humira (Adalimumab) 40 Mg/0.8 Ml Kit 40 Mg SC UD 10/10/16 Reported 40 MG EVERY 15 DAYS, PER PATIENT. Provider Instructions Activity Restrictions - No exercising or heavy lifting for 24 hours. - Do not drink alcohol the day of the procedure. - Do not drive a car or operate machinery until the day after the procedure. - Do not make any important decisions or sign important papers in 24 hours after the procedure. Following Day: - Return to full activity which may include returning to work/school. Diet Start your diet with liquids and light foods (jello, soup, juice, toast). Then eat your usual diet if not nauseated. Treatment For Common After Affects For mild abdominal pain, bloating, or excessive gas: - Rest - Eat lightly - Lie on right side Follow-Up Information Follow-up with as scheduled Anesthesia Information What You Should Know You have had a procedure that required some medicine to reduce anxiety and discomfort. This treatment is called moderate sedation. After receiving the treatment, you may be sleepy, but you will be able to breathe on your own. The effects of the treatment may last for several hours. Follow these instructions along with Activity/Diet recommendations noted above: * Do NOT do anything where dizziness or clumsiness would be dangerous. * Rest quietly at home today, then you can be up and about tomorrow. * Have a responsible person stay with you the rest of today. * You may have had an I.V. today. If so, you may take the dressing off later today. Recommendations Call your doctor if: * Trouble breathing * Continuous vomiting for more than 24 hours * Temperature above 101 degrees * Severe abdominal pain or bloating * Pain not relieved by pain medicine ordered * There is increased drainage or redness from any incision * A large amount of rectal bleeding greater than 2-3 tablespoons. (If you had a polyp/s removed or have hemorrhoids, a small amount of blood - from the rectum is to be expected.) * You have any unanswered questions or concerns. IN THE EVENT OF A SERIOUS EMERGENCY, GO TO THE NEAREST EMERGENCY ROOM Your discharge instructions were prepared by provider Aston Rice. Patient Instructions Signature Page Eduardo Castaneda Patient (or Guardian) Signature/Date: I have read and understand the instructions given to me by my caregivers. Caregiver/RN/Doctor Signature/Date: The above-named patient and/or guardian has received patient instructions on this date. + Original Patient Signature Page (only) stays with chart. Please make copy for patient.
--- NOTE | 2017-01-09 14:11 | GI REPORT ---
Procedure Date: 01/09/2017 1:06 PM Procedure: Colonoscopy Indications: Disease activity assessment of left-sided chronic ulcerative colitis Medicines: Monitored Anesthesia Care Complications: No immediate complications. Estimated Blood Loss: Estimated blood loss: none. Procedure: Pre-Anesthesia Assessment: - Prior to the procedure, a History and Physical was performed, and patient medications and allergies were reviewed. The patient's tolerance of previous anesthesia was also reviewed. The risks and benefits of the procedure and the sedation options and risks were discussed with the patient. All questions were answered, and informed consent was obtained. Prior Anticoagulants: The patient has taken no previous anticoagulant or antiplatelet agents. ASA Grade Assessment: II - A patient with mild systemic disease. After reviewing the risks and benefits, the patient was deemed in satisfactory condition to undergo the procedure. After I obtained informed consent, the scope was passed under direct vision. Throughout the procedure, the patient's blood pressure, pulse, and oxygen saturations were monitored continuously. The scope was introduced through the anus and advanced to the terminal ileum. The colonoscopy was performed without difficulty. The patient tolerated the procedure well. The quality of the bowel preparation was good. The terminal ileum, the ileocecal valve and the appendiceal orifice were photographed. Findings: Inflammation characterized by erosions, loss of vascularity and confluent ulcerations was found in a continuous and circumferential pattern from the rectum to the descending colon. This was severe in severity. Biopsies were taken with a cold forceps for histology. Multiple biopsies were obtained with cold forceps for histology randomly in the transverse colon, in the ascending colon and in the cecum. Impression: - Inflammation was found from the rectum to the descending colon secondary to left-sided ulcerative colitis. Biopsied. - Multiple biopsies were obtained in the transverse colon, in the ascending colon and in the cecum. Recommendation: - Resume previous diet. - Repeat colonoscopy for surveillance based on pathology results. - Return to GI office as previously scheduled. - Use Remicade (infliximab) intravenous infusion: 10 mg / kg IV once per week at week 0, week 2, and week 6. - Use methotrexate 15 mg by mouth weekly. Aston Rice DO 01/09/2017 2:10:26 PM This report has been signed electronically. Note Initiated On: 01/09/2017 1:06 PM I attest to the content of the Intraoperative Record and orders documented therein, exceptions below
--- NOTE | 2017-01-09 14:12 | Anesthesiology Progress Note ---
Anesthesia Post Op Note Date & Time Jan 09, 2017 at 14:12 Vital Signs Pain Intensity: 0 Vital Signs Past 12 Hours Date Time Temp Pulse Resp B/P (MAP) Pulse Ox O2 Delivery O2 Flow Rate FiO2 01/09/17 14:08 85 16 102/52 (69) 96 Room Air 01/09/17 13:59 74 16 91/46 (61) 99 Nasal Cannula 3 01/09/17 13:53 84 16 85/52 (63) 93 Room Air 01/09/17 12:30 37.1 88 16 92/52 (65) 96 Room Air Notes Mental Status: alert / awake / arousable, participated in evaluation Pt Amnestic to Procedure: Yes Nausea / Vomiting: adequately controlled Pain: adequately controlled Airway Patency, RR, SpO2: stable & adequate BP & HR: stable & adequate Hydration State: stable & adequate Anesthetic Complications: no major complications apparent
[2017-01-09 14:23] VITALS: BP 100/65; PULSE 77; O2SAT 98
== END | disposition home or self-care (01) ==
LOC: C.GI 12:10
PROVIDERS: ATTEND Internal Medicine
DX: K51.00 Ulcerative (chronic) pancolitis without complications (principal); Z79.899 Other long term (current) drug therapy

== ENCOUNTER 2017-02-01 13:50 | Inpatient (IN) | payer BC ==
[~2017-02-01] VITALS: Ht 180.3 cm; Wt 94.9 kg
[~2017-02-01 13:50] MED LIST changes: -FERR325T5 PO; +OMEP40CA41 PO; -PRED10TA PO
[2017-02-01] MEDS ORDERED: FENTANYL CITRATE INJ 50 MCG/1 ML 2 ML VIAL IV STA (14:09)
[2017-02-01] MEDS ORDERED: ONDANSETRON INJ 2 MG/ML 2 ML VIAL IV STA ×2 (14:09→17:28)
[2017-02-01] MEDS ORDERED: FAMOTIDINE 20MG/102 ML D5W IV STA (14:09)
[2017-02-01] MEDS ORDERED: SODIUM CHLORIDE 0.9% 1000ML 1,000 ML IV STA ×3 (14:09→17:28)
[2017-02-01 14:41] LABS: BASO % 1.1 %; BASO ABS # 0.09 K/uL (0-0.2); COMPLETE YES; EOS % 4.6 %; HEMATOCRIT 39.6 % (42-52); IG% 0.1 %; LYMPH % 16.3 %; MEAN CELL VOLUME 78.6 fL (80-100); MEAN CORPUSCULAR HEMOGLOBIN 25.8 pg (25-34); MEAN CORPUSCULAR HGB CONC 32.8 g/dl (32-36); MEAN PLATELET VOLUME 8.7 fL (7.4-10.4); MONO % 13.4 %; NEUT % 64.5 %; PLATELET COUNT 488 K/uL (130-400); RED BLOOD COUNT 5.04 M/uL (4.7-6.1); WHITE BLOOD COUNT 7.99 K/uL (4.8-10.8)
[2017-02-01 15:04] LABS: BUN/CREATININE RATIO 3.8 (10-20); CALCIUM 9.9 mg/dl (8.5-10.1); CREATININE 1.3 mg/dl (0.60-1.40); POTASSIUM 3.4 mmol/L (3.5-5.1)
[2017-02-01 15:09] LABS: C-REACTIVE PROTEIN 4.17 mg/dl (0-0.29)
--- NOTE | 2017-02-01 15:17 | EMERGENCY ROOM VISIT NOTE ---
History Report prepared by Alfonso: Kai Bhagat Under the Supervision of: Dr. Hany Aguilar M.D. First contact with patient: 14:03 Chief Complaint: ABDOMINAL PAIN Stated Complaint: UC FLARE UP Nursing Triage Summary: triage note: Pt reports hx of ulcerative colitis "i haven't been able to eat anything for the past 3 days and am having pain and throwing up." History of Present Illness The patient is a 21 year old male who presents to the Emergency Room with complaints of constant abdominal pain that started three days ago. He rates his pain as an 8/10 in severity and describes the pain as a "turning feeling". The patient states that he has been experiencing nausea and 4 episodes of vomiting. He also admits that he becomes short of breath easily and has been experiencing intermittent fevers. He states that he has not been able to eat. The patient admits to a history of ulcerative colitis which he follows up with a doctor for. He states that he has been experiencing a flair for weeks. The patient admits that he has been on Humira for six months and is going to switch to Remicade in two days. He states that he is able to eat whenever he takes pain medication, including hydrocodone and oxycodone. the patient states that he was only able to get Tramadol from his doctor for a week and has not been able to get prescribed more. The patient denies any chest pain, diarrhea, hematuria, and dysuria. Source of History: patient Onset: three days ago Position: abdomen Symptom Intensity: 8/10 Quality: other ("turning sensation") Timing: constant Associated Symptoms: + fevers, + SOB, + nausea, + vomiting, No chest pain, No diarrhea, No urinary symptoms Review of Systems See HPI for pertinent positives and negatives. A total of ten systems were reviewed and were otherwise negative. Past Medical & Surgical Medical Problems: (1) Colitis (2) Iron Deficiency Anemia Secondary To Blood Loss (Chronic) (3) Ulcerative Colitis, Unspecified With Rectal Bleeding Surgical Problems: (1) History of colonoscopy Family History FH: cancer Social History Smoking Status: Never Smoker Alcohol Use: none Drug Use: none Marital Status: single Occupation Status: employed Current/Historical Medications Scheduled Adalimumab (Humira), 40 MG SC UD Scheduled PRN Omeprazole (Prilosec), 40 MG PO DAILY PRN for GERD Allergies Coded Allergies: No Known Allergies (Unverified , 02/01/17) Physical Exam Vital Signs Date Time Temp Pulse Resp B/P (MAP) Pulse Ox O2 Delivery O2 Flow Rate FiO2 02/01/17 17:32 77 18 104/56 95 Room Air 02/01/17 15:53 72 16 119/63 98 Room Air 02/01/17 15:03 89 02/01/17 13:54 36.9 111 18 117/89 96 Room Air Physical Exam GENERAL: Awake, alert, uncomfortable but in NAD. HENT: Normocephalic, atraumatic. Oropharynx unremarkable. Dry mucous membranes. EYES: Normal conjunctiva. Sclera non-icteric. NECK: Supple. No nuchal rigidity. FROM. No JVD. RESPIRATORY: Clear to auscultation. CARDIAC: Regular rate, normal rhythm. Extremities warm and well perfused. Pulses equal. ABDOMEN: Soft, non-distended. Mild epigastric and left lower quadrant tenderness to palpation. No rebound or guarding. No masses. RECTAL: Deferred. MUSCULOSKELETAL: Chest examination reveals no tenderness. The back is symmetrical on inspection without obvious abnormality. There is no CVA tenderness to palpation. No joint edema. LOWER EXTREMITIES: Calves are equal size bilaterally and non-tender. No edema. No discoloration. NEURO: Normal sensorium. No sensory or motor deficits noted. SKIN: No rash or jaundice noted. Medical Decision & Procedures ER Provider Diagnostic Interpretation: Radiology results as stated below per my review and radiologist interpretation: GALLBLADDER-ABD LIMITED HISTORY: 21 years-old Male pancreatitis - r/o gallstone obstruction acute pancreatitis with concern for biliary obstruction COMPARISON: CT abdomen and pelvis 10/10/2016 TECHNIQUE: Multiple real-time sonographic images of the abdominal right upper quadrant were obtained assessing grayscale appearance and color flow FINDINGS: The imaged portions of the pancreas are unremarkable with distal body and tail obscured by bowel gas. There is mildly increased echogenicity with poor through transmission of the liver suggesting fatty infiltration. No focal hepatic mass. No intrahepatic biliary ductal dilation. Liver measures up to 19.3 cm. Gallbladder is unremarkable without wall thickening, pericholecystic fluid or shadowing cholelithiasis. Common bile duct is normal, 0.4 cm. Imaged right kidney is unremarkable without renal calculi or hydronephrosis. IMPRESSION: 1. Unremarkable right upper quadrant ultrasound without cholelithiasis or sonographic evidence of acute cholecystitis. 2. No biliary ductal dilation. 3. Imaged portions of the pancreas are unremarkable. The above report was generated using voice recognition software. It may contain grammatical, syntax or spelling errors. Electronically signed by: Amilcar Argueta M.D. 02/01/2017 6:12 PM Dictated Date/Time: 02/01/2017 6:08 PM Laboratory Results 02/01/17 14:30 Red Blood Count 5.04, Mean Corpuscular Volume 78.6, Mean Corpuscular Hemoglobin 25.8, Mean Corpuscular Hemoglobin Concent 32.8, Mean Platelet Volume 8.7, Neutrophils (%) (Auto) 64.5, Lymphocytes (%) (Auto) 16.3, Monocytes (%) (Auto) 13.4, Eosinophils (%) (Auto) 4.6, Basophils (%) (Auto) 1.1, Neutrophils # (Auto ) 5.15, Lymphocytes # (Auto) 1.30, Monocytes # (Auto) 1.07, Eosinophils # (Auto ) 0.37, Basophils # (Auto) 0.09 02/01/17 14:30 Test 02/01/17 14:30 02/01/17 15:51 White Blood Count 7.99 K/uL (4.8-10.8) Red Blood Count 5.04 M/uL (4.7-6.1) Hemoglobin 13.0 g/dL (14.0-18.0) Hematocrit 39.6 % (42-52) Mean Corpuscular Volume 78.6 fL (80-100) Mean Corpuscular Hemoglobin 25.8 pg (25-34) Mean Corpuscular Hemoglobin Concent 32.8 g/dl (32-36) Platelet Count 488 K/uL (130-400) Mean Platelet Volume 8.7 fL (7.4-10.4) Neutrophils (%) (Auto) 64.5 % Lymphocytes (%) (Auto) 16.3 % Monocytes (%) (Auto) 13.4 % Eosinophils (%) (Auto) 4.6 % Basophils (%) (Auto) 1.1 % Neutrophils # (Auto) 5.15 K/uL (1.4-6.5) Lymphocytes # (Auto) 1.30 K/uL (1.2-3.4) Monocytes # (Auto) 1.07 K/uL (0.11-0.59) Eosinophils # (Auto) 0.37 K/uL (0-0.5) Basophils # (Auto) 0.09 K/uL (0-0.2) RDW Standard Deviation 40.2 fL (36.4-46.3) RDW Coefficient of Variation 14.2 % (11.5-14.5) Immature Granulocyte % (Auto) 0.1 % Immature Granulocyte # (Auto) 0.01 K/uL (0.00-0.02) Erythrocyte Sedimentation Rate 80 mm/hr (0-14) Anion Gap 8.0 mmol/L (3-11) Est Creatinine Clear Calc Drug Dose 103.9 ml/min Estimated GFR () 89.1 Estimated GFR (Non- 76.9 BUN/Creatinine Ratio 3.8 (10-20) Lactic Acid Level 2.0 mmol/L (0.4-2.0) Calcium Level 9.9 mg/dl (8.5-10.1) Total Bilirubin 0.3 mg/dl (0.2-1) Direct Bilirubin 0.1 mg/dl (0-0.2) Aspartate Amino Transf (AST/SGOT) 14 U/L (15-37) Alanine Aminotransferase (ALT/SGPT) 17 U/L (12-78) Alkaline Phosphatase 66 U/L (45-117) C-Reactive Protein 4.17 mg/dl (0-0.29) Total Protein 8.2 gm/dl (6.4-8.2) Albumin 3.4 gm/dl (3.4-5.0) Lipase 2928 U/L (73-393) Urine Color YELLOW Urine Appearance CLEAR (CLEAR) Urine pH 6.0 (4.5-7.5) Urine Specific [place] 1.017 (1.000-1.030) Urine Protein TRACE (NEG) Urine Glucose (UA) NEG (NEG) Urine Ketones 3+ (NEG) Urine Occult Blood NEG (NEG) Urine Nitrite NEG (NEG) Urine Bilirubin NEG (NEG) Urine Urobilinogen NEG (NEG) Urine Leukocyte Esterase NEG (NEG) Urine WBC (Auto) 1-5 /hpf (0-5) Urine RBC (Auto) 0-4 /hpf (0-4) Urine Hyaline Casts (Auto) 10-30 /lpf (0-5) Urine Epithelial Cells (Auto) 10-20 /lpf (0-5) Urine Bacteria (Auto) NEG (NEG) Laboratory results reviewed by me Medications Administered Medications (Trade) Dose Ordered Sig/Terri Route Start Time Stop Time Status Last Admin Dose Admin Sodium Chloride 1,000 ml @ 999 mls/hr Q1H1M STAT IV 02/01/17 14:09 02/01/17 15:09 DC 02/01/17 14:52 999 MLS/HR Sodium Chloride 1,000 ml @ 999 mls/hr Q1H1M STAT IV 02/01/17 14:09 02/01/17 15:09 DC 02/01/17 14:52 999 MLS/HR Famotidine (Pepcid 20mg/100 ml) 20 mg ONE STAT IV 02/01/17 14:09 02/01/17 14:13 DC 02/01/17 14:53 20 MG Ondansetron HCl (Zofran Inj) 4 mg NOW STAT IV 02/01/17 14:09 02/01/17 14:13 DC 02/01/17 14:52 4 MG Fentanyl Citrate (Fentanyl Inj) 50 mcg NOW STAT IV 02/01/17 14:09 02/01/17 14:13 DC 02/01/17 14:55 50 MCG Sodium Chloride 1,000 ml @ 125 mls/hr Q8H STAT IV 02/01/17 17:28 02/01/17 21:04 DC 02/01/17 17:37 125 MLS/HR Ondansetron HCl (Zofran Inj) 4 mg NOW STAT IV 02/01/17 17:28 02/01/17 17:30 DC 02/01/17 17:38 4 MG ED Course 1404: The patient was evaluated in room A09B. A complete history and physical exam was performed. 1409: Ordered Fentanyl Injection 50 mcg IV, Zofran Injection 4 mg IV, Famotidine 20 mg IV, Sodium Chloride 1000 ml @ 999 mls/hr IV. 1629: I reevaluated the patient and he still feels the same. 1728: Ordered Zofran Injection 4 mg IV, Sodium Chloride 1000 ml @ 125 mls/hr IV. 1729: I reevaluated the patient and he still feels uncomfortable in terms of nausea and pain. 182: I discussed the patient's case with Dr. Babin [facility] Hospitalist. She understands the patient's condition and agrees to accept the patient. The patient will be further evaluated. Medical Decision I reviewed the patient's past medical history, medications, and the nursing notes as described above. The patient's presentation and history were concerning for colitis flair, gastroenteritis, gastritis. The patient is a 21-year-old gentleman with a past medical history of ulcerative colitis on Humira who presents emergency Department with worsening abdominal pain and nausea over the past several weeks per history of present illness. Arrival the patient appears mildly uncomfortable but in no acute distress, afebrile with stable vital signs. Labs notable for lipase to 2900 which is up from early December was 97. Otherwise, ESR and CRP are elevated however consistent with the patient's known UC flare. WBC within normal limits. Lactate 2.0 in the setting of the patient's clinically dry appearance. Patient feeling slightly improved after IV fluids and Zofran however reports that he is been severely uncomfortable at home and unable to tolerate food or fluids at home. Right upper quadrant ultrasound ordered and negative for gallstones or dilated CBD. Considering acute onset pancreatitis, will admit the patient for bowel rest hydration, with nausea and pain control. Case was discussed with Dr. Babin [facility] Hospitalist, will admit the patient for further management. Medication Reconcilliation Current Medication List: was personally reviewed by me Blood Pressure Screening Patient's blood pressure: Normal blood pressure Consults Time Called: 1821 Consulting Physician: Dr. Babin [facility] Hospitalist Returned Call: 1821 I discussed the patient's case with Dr. Babin [facility] Hospitalist. She understands the patient's condition and agrees to accept the patient. The patient will be further evaluated. Impression Primary Impression: Pancreatitis Scribe Attestation The scribe's documentation has been prepared under my direction and personally reviewed by me in its entirety. I confirm that the note above accurately reflects all work, treatment, procedures, and medical decision making performed by me. Departure Information Dispostion Being Evaluated By Hospitalist Referrals No Doctor, Assigned (PCP) Patient Instructions My [facility]
[2017-02-01 16:09] LABS: URINE APPEARANCE CLEAR (CLEAR); URINE BILIRUBIN NEG (NEG); URINE COLOR YELLOW; URINE NITRITE NEG (NEG); URINE SPECIFIC GRAVITY 1.017 (1.000-1.030); UROBILINOGEN NEG (NEG); ZZUR CULT IF INDIC CLEAN CATCH NO
[2017-02-01 16:21] LABS: MANUAL MICROSCOPIC REQUIRED? NO; REVIEW REQ? NO
--- NOTE | 2017-02-01 18:14 | DIAGNOSTIC IMAGING REPORT ---
GALLBLADDER-ABD LIMITED HISTORY: 21 years-old Male pancreatitis - r/o gallstone obstruction acute pancreatitis with concern for biliary obstruction COMPARISON: CT abdomen and pelvis 10/10/2016 TECHNIQUE: Multiple real-time sonographic images of the abdominal right upper quadrant were obtained assessing grayscale appearance and color flow FINDINGS: The imaged portions of the pancreas are unremarkable with distal body and tail obscured by bowel gas. There is mildly increased echogenicity with poor through transmission of the liver suggesting fatty infiltration. No focal hepatic mass. No intrahepatic biliary ductal dilation. Liver measures up to 19.3 cm. Gallbladder is unremarkable without wall thickening, pericholecystic fluid or shadowing cholelithiasis. Common bile duct is normal, 0.4 cm. Imaged right kidney is unremarkable without renal calculi or hydronephrosis. IMPRESSION: 1. Unremarkable right upper quadrant ultrasound without cholelithiasis or sonographic evidence of acute cholecystitis. 2. No biliary ductal dilation. 3. Imaged portions of the pancreas are unremarkable. The above report was generated using voice recognition software. It may contain grammatical, syntax or spelling errors. Electronically signed by: Amilcar Argueta M.D. 02/01/2017 6:12 PM Dictated Date/Time: 02/01/2017 6:08 PM
[2017-02-01] MEDS ORDERED: METHYLPREDNISOLONE 125 MG VIAL IV STA (18:45)
[2017-02-01] MEDS ORDERED: PANTOprazole SOD 40 MG TAB PO PRN (18:45)
[2017-02-01] MEDS ORDERED: ACETAMINOPHEN 325 MG TAB PO PRN (18:45)
[2017-02-01] MEDS ORDERED: MAGNESIUM HYDROXIDE SUSP 30 ML UDC PO PRN (18:45)
[2017-02-01] MEDS ORDERED: ONDANSETRON INJ 2 MG/ML 2 ML VIAL IV PRN (18:45)
[2017-02-01] MEDS ORDERED: POTASSIUM CHLR 20 MEQ / WTR 20 MEQ in PREMIXED WATER 100 ML IV STA (18:46)
--- NOTE | 2017-02-01 18:55 | History and Physical ---
History & Physical Date & Time of Service: Feb 01, 2017 at 18:47 Chief Complaint: Uc Flare Up Primary Care Physician: Gissel Weber,C.R.N.P. History of Present Illness Source: patient 21 y/o M c/o n/v, abd pain. Pt has a hx of UC and has been on Oriana for about 6 months. While he was on steroids he was doing well, however after a prolonged steroid taper he started to have abd pain. He has been having pain for about 3 weeks and has developed worsening n/v since that time. He states his pain is in the epigastric region and moves inferiorly down the middle. This is much different than his UC flares, which are usually more bloating and discomfort. He has diarrhea at times with blood on occasion. Pt denies fever, SOB, chest pain, LE pain or swelling. He has been able to keep down some liquids , but no solids and his ability to keep down liquids has been decreasing the last few days. Pt follows with Gissel Weber for his UC. Their current plan is to start remicade on Friday. Pt states he felt that some of this started after doing a bowel prep for a c- scope. His scope had "a lot of ulcerations". Past Medical/Surgical History Ulcerative colitis Hx of iron deficiency GERD Family History Family history was reviewed; no changes noted. Social History Smoking Status: Never Smoker Alcohol Use: occasionally, but none for the last few weeks Drug Use: none Marital Status: single Occupational Status: employed Allergies Coded Allergies: No Known Allergies (Unverified , 02/01/17) Home Medications Scheduled Adalimumab (Humira), 40 MG SC UD Scheduled PRN Omeprazole (Prilosec), 40 MG PO DAILY PRN for GERD Review of Systems Pertinent positives and negatives reviewed in HPI--all others negative Physical Exam Vital Signs Date Time Temp Pulse Resp B/P (MAP) Pulse Ox O2 Delivery O2 Flow Rate FiO2 02/01/17 17:32 77 18 104/56 95 Room Air 02/01/17 15:53 72 16 119/63 98 Room Air 02/01/17 15:03 89 02/01/17 13:54 36.9 111 18 117/89 96 Room Air General Appearance: WD/WN, no apparent distress Head: normocephalic, atraumatic Eyes: normal inspection, EOMI ENT: hearing grossly normal Neck: supple Respiratory/Chest: normal breath sounds, no respiratory distress Cardiovascular: regular rate, rhythm, no edema Abdomen/GI: soft, + tenderness (epigastric) Extremities/Musculoskelatal: no calf tenderness, no pedal edema Neurologic/Psych: alert, normal mood/affect, oriented x 3 Skin: normal color, warm/dry Diagnostics Laboratory Results Results Past 24 Hours Test 02/01/17 14:30 02/01/17 15:51 Range/Units White Blood Count 7.99 4.8-10.8 K/uL Red Blood Count 5.04 4.7-6.1 M/uL Hemoglobin 13.0 14.0-18.0 g/dL Hematocrit 39.6 42-52 % Mean Corpuscular Volume 78.6 80-100 fL Mean Corpuscular Hemoglobin 25.8 25-34 pg Mean Corpuscular Hemoglobin Concent 32.8 32-36 g/dl Platelet Count 488 130-400 K/uL Mean Platelet Volume 8.7 7.4-10.4 fL Neutrophils (%) (Auto) 64.5 % Lymphocytes (%) (Auto) 16.3 % Monocytes (%) (Auto) 13.4 % Eosinophils (%) (Auto) 4.6 % Basophils (%) (Auto) 1.1 % Neutrophils # (Auto) 5.15 1.4-6.5 K/uL Lymphocytes # (Auto) 1.30 1.2-3.4 K/uL Monocytes # (Auto) 1.07 0.11-0.59 K/uL Eosinophils # (Auto) 0.37 0-0.5 K/uL Basophils # (Auto) 0.09 0-0.2 K/uL RDW Standard Deviation 40.2 36.4-46.3 fL RDW Coefficient of Variation 14.2 11.5-14.5 % Immature Granulocyte % (Auto) 0.1 % Immature Granulocyte # (Auto) 0.01 0.00-0.02 K/uL Erythrocyte Sedimentation Rate 80 0-14 mm/hr Sodium Level 136 136-145 mmol/L Potassium Level 3.4 3.5-5.1 mmol/L Chloride Level 101 98-107 mmol/L Carbon Dioxide Level 28 21-32 mmol/L Anion Gap 8.0 3-11 mmol/L Blood Urea Nitrogen 5 7-18 mg/dl Creatinine 1.30 0.60-1.40 mg/dl Est Creatinine Clear Calc Drug Dose 103.9 ml/min Estimated GFR () 89.1 Estimated GFR (Non- 76.9 BUN/Creatinine Ratio 3.8 10-20 Random Glucose 91 70-99 mg/dl Lactic Acid Level 2.0 0.4-2.0 mmol/L Calcium Level 9.9 8.5-10.1 mg/dl Total Bilirubin 0.3 0.2-1 mg/dl Direct Bilirubin 0.1 0-0.2 mg/dl Aspartate Amino Transf (AST/SGOT) 14 15-37 U/L Alanine Aminotransferase (ALT/SGPT) 17 12-78 U/L Alkaline Phosphatase 66 45-117 U/L C-Reactive Protein 4.17 0-0.29 mg/dl Total Protein 8.2 6.4-8.2 gm/dl Albumin 3.4 3.4-5.0 gm/dl Lipase 2928 73-393 U/L Urine Color YELLOW Urine Appearance CLEAR CLEAR Urine pH 6.0 4.5-7.5 Urine Specific [place] 1.017 1.000-1.030 Urine Protein TRACE NEG Urine Glucose (UA) NEG NEG Urine Ketones 3+ NEG Urine Occult Blood NEG NEG Urine Nitrite NEG NEG Urine Bilirubin NEG NEG Urine Urobilinogen NEG NEG Urine Leukocyte Esterase NEG NEG Urine WBC (Auto) 1-5 0-5 /hpf Urine RBC (Auto) 0-4 0-4 /hpf Urine Hyaline Casts (Auto) 10-30 0-5 /lpf Urine Epithelial Cells (Auto) 10-20 0-5 /lpf Urine Bacteria (Auto) NEG NEG Diagnostic Radiology RUQ US neg for GB path Impression Assessment and Plan 21 y/o M who was admitted on 02/01 for pancreatitis Pancreatitis: possibly with underlying UC flare, however pt feels sx are much different than his UC RUQ US neg Lipase elevated Monitor on IVF and bowel rest UC: uncertain if in true flare but was feeling better on steroids Will give 125mg solu-medrol and monitor sx Will leave up to day team depending on pt status in the AM whether further steroids are needed Planning for remicade on Friday Follows with Gissel Weber if further GI input needed HypoK: replace and monitor GERD: hx of PRN omeprazole, but has not needed for some time Level of Care Med/Surg VTE Prophylaxis VTE Risk Assessment Done? Y/N: Yes Risk Level: Low
[2017-02-01] MEDS ORDERED: MoRPHine SULFATE 2 MG/ML CARP IV PRN (19:00)
[2017-02-01 19:01] VITALS: Ht 180.3 cm; Wt 94.9 kg
[2017-02-01] MEDS ORDERED: METHYLPREDNISOLONE 125 MG VIAL ONE (19:07)
[2017-02-01] MEDS ORDERED: POTASSIUM CHLORIDE 10 MEQ / 100ML WTR IV ONE (19:07)
[2017-02-01 20:30] VITALS: O2SAT 97
[2017-02-01 20:49] VITALS: BP 111/71; PULSE 89; TEMP 36.9; O2SAT 97
[2017-02-01] MEDS: SODIUM CHLORIDE 0.9% 1000ML 1,000 ML IV SCH (21:12)
[2017-02-01] MEDS: KETOROLAC TROMETHAMINE 30 MG/ML VIAL IV PRN (23:34)
[2017-02-01 23:39] VITALS: BP 112/68; PULSE 76; TEMP 36.9; O2SAT 96
[2017-02-02] MEDS: SODIUM CHLORIDE 0.9% 1000ML 1,000 ML IV SCH ×2 (03:44→10:12)
[2017-02-02 06:42] LABS: BUN/CREATININE RATIO 6.1 (10-20); CALCIUM 8.8 mg/dl (8.5-10.1); CREATININE 0.83 mg/dl (0.60-1.40); POTASSIUM 4.6 mmol/L (3.5-5.1)
[2017-02-02 07:08] VITALS: BP 91/54; PULSE 70; TEMP 36.6; O2SAT 96
--- NOTE | 2017-02-02 11:05 | Gastrointestinal Consultation ---
Gastrointestinal Consultation Date of Consultation: Feb 02, 2017 History of Present Illness Patient is a 22 year old male who I was asked to see for Dr. Rice, he is a 22- year-old gentleman whom used to follow with myself and was given a diagnosis of initially proctitis, and then left-sided ulcerative colitis. He transitioning care to [facility] physician group with Dr. Rice, and has recently been evaluated to have known documented left-sided colonic disease consistent with ulcerative colitis on colonoscopy in December 2016. He was initially served on rectal therapy only when he had proctitis, and then transitioned to ASA medications when he had noted documented proximal extension of his disease. He was intolerant and adverse to taking oral medications and was very insistent upon taking only steroids, after discussion that is when he transitioning care and was initiated on Humira for about 6 months ago and stated that he is never really been well on that medication. This prompted this most recent colonoscopy that showed active left-sided disease. He then stated that since the preparation for that, he is really not felt well he said generalized abdominal distress including abdominal pain, intolerance to food, nausea and vomiting. He is not eating any solid food for the last 3 days , and he became so frustrated with continued distress that he presented to the emergency room last evening. He denies any recent alcohol exposure, no new medications including he has not started methotrexate as was discussed at time of endoscopy, and he denies any herbal medications or supplements. His pain is medical mostly located in the epigastrium as well as hypogastric area and he states the pain is worse with eating and it does make him have non-bloody emesis. Pain does not radiate to his back but generally up-and-down his abdomen. Upon his evaluation here he presented to have dramatically elevated lipase, within normal right upper quadrant ultrasound negative for gallstones or biliary duct dilatation. He continues to have some mild abdominal pain but is tolerable, he's been having rene bloody and mucoid diarrhea that he said chronically for a number of months. He did note that he had a fever several nights ago but no fever since that time , this prompted him to take some nonsteroidal anti-inflammatories on 1 night only. Past Medical/Surgical History Medical Problems: (1) Dehydration Status: Acute (2) Pancreatitis Status: Acute (3) Ulcerative colitis with rectal bleeding Status: Acute (4) Vomiting Status: Acute Family History FH: cancer Social History Smoking Status: Never Smoker Alcohol Use: none Drug Use: none Marital Status: single Occupation Status: employed Allergies Coded Allergies: No Known Allergies (Unverified , 02/01/17) Current Medications Home Meds and Scripts Medications Dose Route/Sig Max Daily Dose Days Date Category Dose Instructions Prilosec (Omeprazole) 40 Mg Cap 40 Mg PO DAILY PRN 01/09/17 Reported Humira (Adalimumab) 40 Mg/0.8 Ml Kit 40 Mg SC UD 10/10/16 Reported 40 MG EVERY 15 DAYS, PER PATIENT. Review of Systems Constitutional: + see HPI Eyes: No see HPI, No worsening of vision, No eye pain, No redness, No discharge , No diplopia, No problem reported ENT: No see HPI, No hearing loss, No unusual epistaxis, No nasal symptoms, No sore throat, No tinnitus, No dental problems, No trouble swallowing, No pain on swallowing, No problem reported Respiratory: No see HPI, No cough, No sputum, No wheezing, No shortness of breath, No dyspnea on exertion, No dyspnea at rest, No hemoptysis, No problem reported Cardiac: No see HPI, No chest pain, No orthopnea, No PND, No edema, No claudication, No palpitations, No problem reported Abdomen: + see HPI Musculoskeletal: No see HPI, No joint pain, No muscle pain, No swelling, No calf pain, No problem reported Male : No see HPI, No dysuria, No urinary frequency, No incontinence, No nocturia more than once/night, No slowing stream, No hematuria, No sexual dysfunction, No problem reported Neuro: No see HPI, No memory loss, No paralysis, No weakness, No numbness/ tingling, No vertigo, No balance problems, No problem reported Psych: No see HPI, No depression symptoms, No anhedonism, No anxiety, No insomnia, No substance abuse, No problem reported Heme: No see HPI, No abnormal bleeding/bruising, No clotting problems, No swollen lymph nodes, No night sweats, No problem reported Physical Exam Date Time Temp Pulse Resp B/P (MAP) Pulse Ox O2 Delivery O2 Flow Rate FiO2 02/02/17 08:06 Room Air 02/02/17 07:08 36.6 70 16 91/54 (66) 96 Room Air 02/01/17 23:45 Room Air 02/01/17 23:39 36.9 76 16 112/68 (83) 96 Room Air 02/01/17 21:00 Room Air 02/01/17 20:49 36.9 89 16 111/71 (84) 97 Room Air 02/01/17 20:30 94 18 106/54 97 02/01/17 19:47 76 18 121/62 95 Room Air 02/01/17 19:06 80 02/01/17 19:01 Room Air 02/01/17 17:32 77 18 104/56 95 Room Air 02/01/17 15:53 72 16 119/63 98 Room Air 02/01/17 15:03 89 02/01/17 13:54 36.9 111 18 117/89 96 Room Air General Appearance: WD/WN, no apparent distress Eyes: normal inspection ENT: normal ENT inspection Neck: supple Respiratory/Chest: chest non-tender, lungs clear Cardiovascular: regular rate, rhythm, no edema, no gallop Abdomen: normal bowel sounds, non tender, soft Extremities: normal range of motion Laboratory Results Last 24 Hours Test 02/01/17 14:30 02/01/17 15:51 02/02/17 05:48 White Blood Count 7.99 K/uL Red Blood Count 5.04 M/uL Hemoglobin 13.0 g/dL Hematocrit 39.6 % Mean Corpuscular Volume 78.6 fL Mean Corpuscular Hemoglobin 25.8 pg Mean Corpuscular Hemoglobin Concent 32.8 g/dl Platelet Count 488 K/uL Mean Platelet Volume 8.7 fL Neutrophils (%) (Auto) 64.5 % Lymphocytes (%) (Auto) 16.3 % Monocytes (%) (Auto) 13.4 % Eosinophils (%) (Auto) 4.6 % Basophils (%) (Auto) 1.1 % Neutrophils # (Auto) 5.15 K/uL Lymphocytes # (Auto) 1.30 K/uL Monocytes # (Auto) 1.07 K/uL Eosinophils # (Auto) 0.37 K/uL Basophils # (Auto) 0.09 K/uL RDW Standard Deviation 40.2 fL RDW Coefficient of Variation 14.2 % Immature Granulocyte % (Auto) 0.1 % Immature Granulocyte # (Auto) 0.01 K/uL Erythrocyte Sedimentation Rate 80 mm/hr Sodium Level 136 mmol/L 140 mmol/L Potassium Level 3.4 mmol/L 4.6 mmol/L Chloride Level 101 mmol/L 108 mmol/L Carbon Dioxide Level 28 mmol/L 25 mmol/L Anion Gap 8.0 mmol/L 7.0 mmol/L Blood Urea Nitrogen 5 mg/dl 5 mg/dl Creatinine 1.30 mg/dl 0.83 mg/dl Est Creatinine Clear Calc Drug Dose 103.9 ml/min 161.3 ml/min Estimated GFR () 89.1 142.7 Estimated GFR (Non- 76.9 123.2 BUN/Creatinine Ratio 3.8 6.1 Random Glucose 91 mg/dl 107 mg/dl Lactic Acid Level 2.0 mmol/L Calcium Level 9.9 mg/dl 8.8 mg/dl Total Bilirubin 0.3 mg/dl Direct Bilirubin 0.1 mg/dl Aspartate Amino Transf (AST/SGOT) 14 U/L Alanine Aminotransferase (ALT/SGPT) 17 U/L Alkaline Phosphatase 66 U/L C-Reactive Protein 4.17 mg/dl Total Protein 8.2 gm/dl Albumin 3.4 gm/dl Lipase 2928 U/L Urine Color YELLOW Urine Appearance CLEAR Urine pH 6.0 Urine Specific [place] 1.017 Urine Protein TRACE Urine Glucose (UA) NEG Urine Ketones 3+ Urine Occult Blood NEG Urine Nitrite NEG Urine Bilirubin NEG Urine Urobilinogen NEG Urine Leukocyte Esterase NEG Urine WBC (Auto) 1-5 /hpf Urine RBC (Auto) 0-4 /hpf Urine Hyaline Casts (Auto) 10-30 /lpf Urine Epithelial Cells (Auto) 10-20 /lpf Urine Bacteria (Auto) NEG Impression Patient is a 22 year old male presenting with uncomplicated pancreatitis in the setting of known active left-sided ulcerative colitis. Plan He has no common risk factors for the development of pancreatitis, he denies alcohol chronically, and he has no gallstones noted. There certainly is a higher incidence of pancreatitis in setting of known inflammatory bowel disease , his chronic steroid use certainly puts him at higher incidence of having had or the development of pancreatitis. Recommendations 1. I would hold any further or increased UC treatments such as steroids while he is in the midst of pancreatitis. Check C-diff today. 2. Obviously will hold Remicade and infusion tomorrow 3. He had 3+ ketones on his admission so probably could increase his fluid rates up to about 200 mL an hour with preferably lactated Ringer's. 4. Continue conservative care with nothing by mouth, analgesics, IV fluids, pain medication as needed 5. If develops fever, white count, then would order CT scan of the abdomen with contrast. 6. Call with Questions, and Dr. Rice will return tomorrow.
[2017-02-02] MEDS: LACTATED RINGER'S 1000ML 1,000 ML IV SCH ×3 (12:37→20:15)
[2017-02-02 15:02] VITALS: BP 114/67; PULSE 73; TEMP 36.8; O2SAT 98
[2017-02-02] MEDS: KETOROLAC TROMETHAMINE 30 MG/ML VIAL IV PRN (15:31)
--- NOTE | 2017-02-02 15:55 | Hospitalist Progress Note ---
Hospitalist Progress Note Date of Service Feb 02, 2017. Subjective Pt evaluation today including: conversation w/ patient, conversation w/ direct sales consultant (GI-discussed case at length today ) Voiding: no voiding problems Pt having 7/10 epigastric pain currently. Has had abd pain and N/V, inability to eat off and on for several weeks now. All Other Systems: Reviewed and Negative Objective Vital Signs Date Time Temp Pulse Resp B/P (MAP) Pulse Ox O2 Delivery O2 Flow Rate FiO2 02/02/17 15:02 36.8 73 17 114/67 (83) 98 Room Air 02/02/17 08:06 Room Air 02/02/17 07:08 36.6 70 16 91/54 (66) 96 Room Air 02/01/17 23:45 Room Air 02/01/17 23:39 36.9 76 16 112/68 (83) 96 Room Air 02/01/17 21:00 Room Air 02/01/17 20:49 36.9 89 16 111/71 (84) 97 Room Air 02/01/17 20:30 94 18 106/54 97 02/01/17 19:47 76 18 121/62 95 Room Air 02/01/17 19:06 80 02/01/17 19:01 Room Air 02/01/17 17:32 77 18 104/56 95 Room Air 02/01/17 15:53 72 16 119/63 98 Room Air Physical Exam General Appearance: WD/WN, no apparent distress Eyes: normal inspection, sclerae normal ENT: hearing grossly normal, pharynx normal Neck: trachea midline Respiratory/Chest: lungs clear, normal breath sounds, no respiratory distress, no accessory muscle use Cardiovascular: regular rate, rhythm, no edema, no gallop, no murmur Abdomen: normal bowel sounds, soft, + tenderness (mild in epigastric region without guarding or rebound) Extremities: non-tender, normal inspection, no pedal edema, no calf tenderness Neurologic/Psychiatric: alert, normal mood/affect, oriented x 3 Skin: normal color, warm/dry, no rash Laboratory Results Last 24 Hours Test 02/01/17 15:51 02/02/17 05:48 Urine Color YELLOW Urine Appearance CLEAR Urine pH 6.0 Urine Specific [place] 1.017 Urine Protein TRACE Urine Glucose (UA) NEG Urine Ketones 3+ Urine Occult Blood NEG Urine Nitrite NEG Urine Bilirubin NEG Urine Urobilinogen NEG Urine Leukocyte Esterase NEG Urine WBC (Auto) 1-5 /hpf Urine RBC (Auto) 0-4 /hpf Urine Hyaline Casts (Auto) 10-30 /lpf Urine Epithelial Cells (Auto) 10-20 /lpf Urine Bacteria (Auto) NEG Sodium Level 140 mmol/L Potassium Level 4.6 mmol/L Chloride Level 108 mmol/L Carbon Dioxide Level 25 mmol/L Anion Gap 7.0 mmol/L Blood Urea Nitrogen 5 mg/dl Creatinine 0.83 mg/dl Est Creatinine Clear Calc Drug Dose 161.3 ml/min Estimated GFR () 142.7 Estimated GFR (Non- 123.2 BUN/Creatinine Ratio 6.1 Random Glucose 107 mg/dl Calcium Level 8.8 mg/dl Assessment and Plan 21 y/o M with a h/o UC currently not in remission, who was admitted on 02/01 for acute pancreatitis Acute Pancreatitis: lipase significantly elevated, RUQ US neg for stones. GI thinks pancreatitis risk much higher due to underlying IBD, also steroids can induce pancreatitis. Has been off steroids for 1 month after being on them for 8 -9 months. Received 1 dose Solu Medrol on admission, then stopped. No leukocytosis now but would expect it tomorrow due to steroids. Afebrile. No signs of complicated pancreatitis or need for antibiotics or imaging at this time other than US -continue on IVF 200 ml/hr LR and bowel rest -Appreciate GI consultation -get CT abdomen only if develops fever, leukocytosis -follow lipase in AM -pain control with toradol, morphine UC: dxd 2013 first only in rectum on rectal tx, then progressed to left side colon, was on steroids for 8-9 months and tapered off 1 month ago; was briefly on ASA but did not want to continue; then on Humira for last 6 months with no improvement. Previously followed by Raymon ROLDAN, now sees Dr. Rice/Gissel Weber -treating acute pancreatitis first -hold off on Remicade tx that was to start Friday -f/u with GI as outpt after discharge Anemia-microcytic and likely due to ongoing bloody loose stools. 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
[2017-02-02] MEDS: MoRPHine SULFATE 2 MG/ML CARP IV PRN (18:39)
[2017-02-02 22:54] VITALS: BP 115/67; PULSE 83; TEMP 37.1; O2SAT 98
[2017-02-03] MEDS: LACTATED RINGER'S 1000ML 1,000 ML IV SCH ×5 (00:28→22:23)
[2017-02-03] MEDS: MoRPHine SULFATE 2 MG/ML CARP IV PRN ×2 (00:28→21:15)
[2017-02-03] MEDS: KETOROLAC TROMETHAMINE 30 MG/ML VIAL IV PRN (05:54)
[2017-02-03 06:56] LABS: BUN/CREATININE RATIO 7.2 (10-20); CALCIUM 8.1 mg/dl (8.5-10.1); CREATININE 0.8 mg/dl (0.60-1.40); FERRITIN 21.7 ng/ml (8.0-388.0); MAGNESIUM 2.1 mg/dl (1.8-2.4); POTASSIUM 3.6 mmol/L (3.5-5.1)
[2017-02-03 06:58] LABS: HEMATOCRIT 28.6 % (42-52); MEAN CELL VOLUME 79.4 fL (80-100); MEAN CORPUSCULAR HEMOGLOBIN 24.7 pg (25-34); MEAN CORPUSCULAR HGB CONC 31.1 g/dl (32-36); MEAN PLATELET VOLUME 8.8 fL (7.4-10.4); PLATELET COUNT 280 K/uL (130-400); WHITE BLOOD COUNT 2.22 K/uL (4.8-10.8)
[2017-02-03 07:02] LABS: BASO % 2.7 %; BASO ABS # 0.06 K/uL (0-0.2); COMPLETE YES; EOS % 4.1 %; LYMPH % 35.6 %; LYMPH ABS # 0.79 K/uL (1.2-3.4); MONO % 24.3 %; NEUT % 33.3 %; OVALOCYTES 1+
[2017-02-03 07:08] VITALS: BP 119/70; PULSE 94; TEMP 36.9; O2SAT 94
[2017-02-03 08:34] LABS: BASO % 1.4 %; BASO ABS # 0.04 K/uL (0-0.2); COMPLETE YES; EOS % 2.5 %; HEMATOCRIT 28.9 % (42-52); LYMPH % 25.9 %; LYMPH ABS # 0.72 K/uL (1.2-3.4); MEAN CELL VOLUME 79.6 fL (80-100); MEAN CORPUSCULAR HEMOGLOBIN 25.3 pg (25-34); MEAN CORPUSCULAR HGB CONC 31.8 g/dl (32-36); MONO % 18.7 %; NEUT % 51.5 %; PLATELET COUNT 249 K/uL (130-400); RED BLOOD COUNT 3.63 M/uL (4.7-6.1); WHITE BLOOD COUNT 2.78 K/uL (4.8-10.8)
--- NOTE | 2017-02-03 11:23 | Hospitalist Progress Note ---
Hospitalist Progress Note Date of Service Feb 03, 2017. Subjective Pt evaluation today including: conversation w/ patient, conversation w/ family , physical exam, chart review, lab review, review of studies Pain: minimal PO Intake: NPO Voiding: no voiding problems The patient was seen and examined this morning. Pts mother is present at bedside. Pt reports his pain has improved in comparison to yesterday. He has no acute complaints of nausea or vomitting. He does reports three BMs today which were dark and tarry but denies abdominal pain. Discussion was held regarding low WBC and to caution with appropriate hand washing precautions. Pt was requesting to try to eat something today because he's feeling very hungry. Previously was using humira fo 6 months and was administering this weekly x 3 weeks with the last dose being on 01/22. He had not started remicade yet. Constitutional: No fever, No chills, No sweats Eyes: No diplopia, No problem reported ENT: No nasal symptoms, No trouble swallowing Respiratory: No cough, No wheezing, No shortness of breath Cardiovascular: No chest pain, No palpitations Abdomen: + GI bleeding (dark tarry stools x 3 BM today), No pain, No nausea , No vomiting, No diarrhea, No constipation Musculoskeletal: No joint pain, No swelling Neurologic: No memory loss, No weakness, No numbness/tingling Endo: No fatigue Skin: No rash, No itch Objective Vital Signs Date Time Temp Pulse Resp B/P (MAP) Pulse Ox O2 Delivery O2 Flow Rate FiO2 02/03/17 07:40 Room Air 02/03/17 07:08 36.9 94 14 119/70 (86) 94 02/03/17 00:15 Room Air 02/02/17 22:54 37.1 83 16 115/67 (83) 98 Room Air 02/02/17 15:20 Room Air 02/02/17 15:02 36.8 73 17 114/67 (83) 98 Room Air Physical Exam General Appearance: WD/WN, no apparent distress Eyes: PERRL, EOMI ENT: hearing grossly normal, pharynx normal Neck: supple, no JVD Respiratory/Chest: lungs clear, no respiratory distress, no accessory muscle use Cardiovascular: regular rate, rhythm, no edema, no murmur Abdomen: normal bowel sounds, soft, + pertinent finding (+mild tenderness in epigastric region with deep palpation.) Extremities: non-tender, no pedal edema, no calf tenderness Neurologic/Psychiatric: alert, oriented x 3 Skin: normal color, warm/dry Laboratory Results Last 24 Hours Test 02/03/17 05:32 02/03/17 08:21 White Blood Count 2.22 K/uL 2.78 K/uL Red Blood Count 3.60 M/uL 3.63 M/uL Hemoglobin 8.9 g/dL 9.2 g/dL Hematocrit 28.6 % 28.9 % Mean Corpuscular Volume 79.4 fL 79.6 fL Mean Corpuscular Hemoglobin 24.7 pg 25.3 pg Mean Corpuscular Hemoglobin Concent 31.1 g/dl 31.8 g/dl Platelet Count 280 K/uL 249 K/uL Mean Platelet Volume 8.8 fL 8.0 fL Neutrophils (%) (Auto) 33.3 % 51.5 % Lymphocytes (%) (Auto) 35.6 % 25.9 % Monocytes (%) (Auto) 24.3 % 18.7 % Eosinophils (%) (Auto) 4.1 % 2.5 % Basophils (%) (Auto) 2.7 % 1.4 % Neutrophils # (Auto) 0.74 K/uL 1.43 K/uL Lymphocytes # (Auto) 0.79 K/uL 0.72 K/uL Monocytes # (Auto) 0.54 K/uL 0.52 K/uL Eosinophils # (Auto) 0.09 K/uL 0.07 K/uL Basophils # (Auto) 0.06 K/uL 0.04 K/uL RDW Standard Deviation 42.1 fL 42.3 fL RDW Coefficient of Variation 14.6 % 14.6 % Immature Granulocyte % (Auto) 0.0 % 0.0 % Immature Granulocyte # (Auto) 0.00 K/uL 0.00 K/uL Ovalocytes 1+ Sodium Level 144 mmol/L Potassium Level 3.6 mmol/L Chloride Level 110 mmol/L Carbon Dioxide Level 22 mmol/L Anion Gap 12.0 mmol/L Blood Urea Nitrogen 6 mg/dl Creatinine 0.80 mg/dl Est Creatinine Clear Calc Drug Dose 167.4 ml/min Estimated GFR () 144.9 Estimated GFR (Non- 125.0 BUN/Creatinine Ratio 7.2 Random Glucose 72 mg/dl Calcium Level 8.1 mg/dl Magnesium Level 2.1 mg/dl 1.9 mg/dl Iron Level 9 mcg/dl Total Iron Binding Capacity 213 mcg/dl Transferrin 173 mg/dl Transferrin % Saturation 4 % Ferritin 21.7 ng/ml Total Bilirubin 0.3 mg/dl Direct Bilirubin 0.1 mg/dl Aspartate Amino Transf (AST/SGOT) 10 U/L Alanine Aminotransferase (ALT/SGPT) 15 U/L Alkaline Phosphatase 39 U/L Total Protein 5.3 gm/dl Albumin 2.4 gm/dl Lipase 251 U/L Assessment and Plan 21 y/o M with a h/o UC currently not in remission, who was admitted on 02/01 for acute pancreatitis Acute Pancreatitis: lipase significantly elevated, RUQ US neg for stones. GI thinks pancreatitis risk much higher due to underlying IBD, also steroids can induce pancreatitis. Has been off steroids for 1 month after being on them for 8 -9 months. Received 1 dose Solu Medrol on admission, then stopped. No leukocytosis now - WBC has acutely dropped and pt now pancytopenic. Afebrile. - No signs of complicated pancreatitis or need for antibiotics or imaging at this time other than US - reduce IVF and allow clear liquid diet today - advance slowly if tolerates - Appreciate GI consultation - lipase down to 251 - Pain better controlled today Pancytopenia - ANC = 740, then repeat is >1000 this am. - ? from Humira injections, pt repots taking them weekly x 3 weeks, last dose on 01/22 - unsure of pancytopenia etiology - afebrile. UC: dxd 2013 first only in rectum on rectal tx, then progressed to left side colon, was on steroids for 8-9 months and tapered off 1 month ago; was briefly on ASA but did not want to continue; then on Humira for last 6 months with no improvement. Previously followed by Raymon ROLDAN, now sees Dr. Rice/Gissel Weber - treating acute pancreatitis first - hold off on Remicade tx that was to start on 02/03 for now until GI makes recs - f/u with GI as outpt after discharge Anemia-microcytic and likely due to ongoing bloody loose stools. Mild, Hgb 13.0 not much drop from 1 month ago was 13.3 - hgb stable currently at 9.2. 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
--- NOTE | 2017-02-03 13:02 | GASTROENTEROLOGY PROGRESS NOTE ---
DATE: 02/03/2017 RACE: . ATTENDING PHYSICIAN: Dr. Eller. CONSULTING PHYSICIAN: Dr. Rice. I had the pleasure of seeing Eduardo Nobles at his bedside today. He is feeling slightly improved though still does complain of some epigastric abdominal pain rated as a 3/10 in intensity, nonradiating without exacerbating factors. He is asking for some clear liquids for p.o. intake and states that he was supposed to have his Remicade infused starting today, though this has been put on hold. C. diff testing was negative. He states that he continues to have bowel movements with blood and states that he would like to be placed on Remicade as soon as possible. He denies any further complaints. PHYSICAL EXAMINATION: VITAL SIGNS: Temp 36.9, pulse 94, respirations 14, blood pressure 119/70, pulse 94% on room air. GENERAL: Awake, cooperative, in no acute distress. CHEST: Clear to auscultation bilaterally. CARDIOVASCULAR SYSTEM: Regular rate and rhythm. ABDOMEN: Soft, tender in the mid epigastric area and nondistended, positive bowel sounds. There is no hepatosplenomegaly or stigmata of chronic liver disease. EXTREMITIES: No clubbing, cyanosis, or edema. LABORATORY STUDIES: Today include a white blood cell count of 2.78, hemoglobin 9.2, hematocrit 28.9 and a platelet count of 249. Sodium 144, potassium 3.6, chloride 110, bicarbonate 22, BUN 6, creatinine 0.8 and a blood glucose level of 72. Liver panel was unremarkable. Lipase level today was 251. IMPRESSION: A 22-year-old male with uncomplicated pancreatitis and left-sided ulcerative colitis. PLAN: I would recommend advancing him into a clear liquid diet to see if he tolerates this. I would also recommend that he start on Remicade therapy as soon as possible to help with his symptomatic left-sided ulcerative colitis. I would recommend continuing supportive care. Once again, thanks for allowing me to participate in the care of this patient. If you have any further questions, please do not hesitate in contacting me.
[2017-02-03 14:57] VITALS: BP 122/73; PULSE 73; TEMP 37.2; O2SAT 97
[2017-02-03 22:46] VITALS: BP 110/69; PULSE 75; TEMP 37.4; O2SAT 97
[2017-02-04] MEDS: LACTATED RINGER'S 1000ML 1,000 ML IV SCH ×3 (03:21→13:15)
[2017-02-04 06:45] VITALS: BP 121/72; PULSE 83; TEMP 36.8; O2SAT 95
[2017-02-04 07:08] LABS: BASO % 1.9 %; BASO ABS # 0.07 K/uL (0-0.2); HEMATOCRIT 28.4 % (42-52); IG% 0.3 %; LYMPH % 25.4 %; LYMPH ABS # 0.94 K/uL (1.2-3.4); MEAN CORPUSCULAR HEMOGLOBIN 24.5 pg (25-34); MEAN CORPUSCULAR HGB CONC 30.6 g/dl (32-36); MEAN PLATELET VOLUME 8.6 fL (7.4-10.4); MONO % 21.6 %; NEUT % 40.8 %; PLATELET COUNT 281 K/uL (130-400); RED BLOOD COUNT 3.55 M/uL (4.7-6.1)
[2017-02-04] MEDS: MoRPHine SULFATE 2 MG/ML CARP IV PRN (07:26)
[2017-02-04 07:34] LABS: COMPLETE YES; DOHLE BODIES 1+; OVALOCYTES 2+; TOXIC GRANULATION 1+
[2017-02-04 07:53] LABS: BUN/CREATININE RATIO 1.9 (10-20); CALCIUM 8.3 mg/dl (8.5-10.1); CREATININE 0.92 mg/dl (0.60-1.40); POTASSIUM 3.4 mmol/L (3.5-5.1)
--- NOTE | 2017-02-04 10:02 | Gastroenterology Progress Note ---
Progress Note Date of Service: Feb 04, 2017 Subjective Pt evaluation today including: conversation w/ patient, physical exam, lab review, review of studies Patient is a 22 yo male hospitalized with pancreatitis. He is reporting that he is tolerating a clear liquid diet. He denies epigastric pain, fevers, or chills. He denies back pain. His most pressing complaints are related to his left sided ulcerative colitis for which he is awaiting the initiation of his first Remicade therapy. He reports 3-5 bowel movements daily with diarrhea consistency and bleeding. He denies further complaints at the present time. Review of Systems Constitutional: No fever, No chills Eyes: No problem reported ENT: No problem reported Respiratory: No cough, No shortness of breath Cardiac: No chest pain Abdomen: + pain, + diarrhea, + GI bleeding Musculoskeletal: No joint pain Neuro: No problem reported Skin: No problem reported Medications Current Inpatient Medications Medications (Trade) Dose Ordered Sig/Terri Route Start Time Stop Time Status Last Admin Dose Admin Acetaminophen (Tylenol Tab) 650 mg Q4H PRN PO 02/01/17 18:45 03/03/17 18:44 Magnesium Hydroxide (Milk Of Magnesia Susp) 30 ml Q6H PRN PO 02/01/17 18:45 03/03/17 18:44 Ondansetron HCl (Zofran Inj) 4 mg Q6H PRN IV 02/01/17 18:45 03/03/17 18:44 02/03/17 19:06 4 MG Pantoprazole Sodium (Protonix Tab) 40 mg DAILY PRN PO 02/01/17 18:45 03/03/17 18:44 02/03/17 00:13 40 MG Ketorolac Tromethamine (Toradol Inj) 30 mg Q6H PRN IV 02/01/17 19:00 02/06/17 18:59 02/03/17 05:54 30 MG Morphine Sulfate (MoRPHine SULFATE INJ) 2 mg Q3H PRN IV 02/02/17 09:15 02/15/17 18:59 02/04/17 07:26 2 MG Lactated Ringer's 1,000 ml @ 200 mls/hr Q5H IV 02/02/17 11:15 03/04/17 11:14 02/04/17 07:26 200 MLS/HR Objective Vital Signs Date Time Temp Pulse Resp B/P (MAP) Pulse Ox O2 Delivery O2 Flow Rate FiO2 02/04/17 06:45 36.8 83 16 121/72 (88) 95 Room Air 02/04/17 00:40 Room Air 02/03/17 22:46 37.4 75 18 110/69 (83) 97 Room Air 02/03/17 15:47 Room Air 02/03/17 14:57 37.2 73 18 122/73 (89) 97 Room Air Physical Exam General Appearance: WD/WN, no apparent distress Eyes: normal inspection, PERRL ENT: hearing grossly normal Respiratory/Chest: lungs clear, normal breath sounds Cardiovascular: regular rate, rhythm Abdomen: normal bowel sounds, soft, + tenderness (mild left-sided) Extremities: non-tender Neurologic/Psych: alert, oriented x 3 Skin: normal color Laboratory Results Last 24 Hours Test 02/04/17 06:35 White Blood Count 3.70 K/uL Red Blood Count 3.55 M/uL Hemoglobin 8.7 g/dL Hematocrit 28.4 % Mean Corpuscular Volume 80.0 fL Mean Corpuscular Hemoglobin 24.5 pg Mean Corpuscular Hemoglobin Concent 30.6 g/dl Platelet Count 281 K/uL Mean Platelet Volume 8.6 fL Neutrophils (%) (Auto) 40.8 % Lymphocytes (%) (Auto) 25.4 % Monocytes (%) (Auto) 21.6 % Eosinophils (%) (Auto) 10.0 % Basophils (%) (Auto) 1.9 % Neutrophils # (Auto) 1.51 K/uL Lymphocytes # (Auto) 0.94 K/uL Monocytes # (Auto) 0.80 K/uL Eosinophils # (Auto) 0.37 K/uL Basophils # (Auto) 0.07 K/uL RDW Standard Deviation 43.1 fL RDW Coefficient of Variation 14.6 % Immature Granulocyte % (Auto) 0.3 % Immature Granulocyte # (Auto) 0.01 K/uL Toxic Granulation 1+ Dohle Bodies 1+ Ovalocytes 2+ Sodium Level 144 mmol/L Potassium Level 3.4 mmol/L Chloride Level 110 mmol/L Carbon Dioxide Level 28 mmol/L Anion Gap 6.0 mmol/L Blood Urea Nitrogen 2 mg/dl Creatinine 0.92 mg/dl Est Creatinine Clear Calc Drug Dose 145.6 ml/min Estimated GFR () 134.4 Estimated GFR (Non- 116.0 BUN/Creatinine Ratio 1.9 Random Glucose 77 mg/dl Calcium Level 8.3 mg/dl Magnesium Level 2.0 mg/dl Assessment and Plan Patient is a 22 yo male who is hospitalized with pancreatitis & left-sided Ulcerative Colitis. 1) Advance diet as tolerated. 2) Okay for discharge from GI standpoint. 3) Recommend ROMÁN initiation of Remicade. Nursing was able to schedule patient for infusion at [facility] for 02/07/17 at 8 AM. 4) Supportive care per primary team. Outpatient follow-up as previously planned. Thank you for allowing us to participate in the care of this patient. If you should have any questions or concerns, do not hesitate to contact us. Agree with LORENZA Tsang as above Abd: Soft, Tender LLQ, ND Continue current therapy For Remicade on Friday AM
[2017-02-04] MEDS ORDERED: ONDA8TAB62 SL (11:44)
--- NOTE | 2017-02-04 11:50 | Discharge Instructions ---
Discharge Instructions Date of Service Feb 04, 2017. Admission Reason for Admission: Pancreatitis Discharge Discharge Diagnosis / Problem: Pancreatitis, Chrons disease flare Discharge Goals Goal(s): Decrease discomfort, Improve function, Increase independence, Improve disease control Activity Recommendations Activity Limitations: per Instructions/Follow-up section Lifting Limitations: no more than 25 pounds, gradually increase as tolerated Exercise/Sports Limitations: rest today, gradually increase as tolerated May Resume Sexual Activity: when tolerated Shower/Bathe: no limitations Driving or Machine Use: resume 1 day after discharge . Instructions / Follow-Up Instructions / Follow-Up You were admitted to [facility] with abdominal pain and diagnosed with pancreatits in the setting of Crohns disease. During your stay here you were treated with intravenous fluids, pain control, and medication for nausea. Your lipase (marker for pancreatitis) was initially very high, and decreased to a normal level. Your symptoms greatly improved. You were able to tolerate a diet, and should continue to advance your diet as tolerated. Imaging studies which were completed include Gallbladder ultrasound, and were normal. Medications: Continue taking zofran (odansetron) for nausea as needed, a refill has been sent to your pharmacy Stop humira. Start Remicade injections this week. - See below Follow up: Come to the infusion at [facility] on 02/07/17 at 8 AM for Remicade injection. Follow up with your Primary Care Provider within 1 week. Current Hospital Diet Patient's current hospital diet: Full Liquid Diet Discharge Diet Recommended Diet: Low Fiber Diet, Low Fat Diet Pending Studies Studies pending at discharge: no Medical Emergencies . Who to Call and When: Medical Emergencies: If at any time you feel your situation is an emergency, please call 911 immediately. . Non-Emergent Contact Non-Emergency issues call your: Primary Care Provider, All Terrain Vehicle Racer Call Non-Emergent contact if: you have a fever, temperature is above 100.5, your pain is not controlled, your pain is worsening, your pain is unusual for you, your pain is concerning you, you have any medication questions other concerns with your health. Call 911 or go directly to the Emergency Department if you experience any of the following: Chest pain, chest tightness, shortness of breath, abdominal pain , lightheadedness, dizziness, gastrointestinal bleeding, or have any other concerns regarding your health. . . "Provider Documentation" section prepared by Connie Davidson. . VTE Core Measure Inpt VTE Proph given/why not?: Alexsandra Reid, DARRIAN's
[2017-02-04 12:03] VITALS: BP 121/72; PULSE 83; TEMP 36.8; O2SAT 95
[2017-02-04] MEDS ORDERED: POTASSIUM CHLORIDE 20 MEQ TABCR PO ONE (13:00)
--- NOTE | 2017-02-04 14:05 | Discharge Summary ---
Discharge Summary Date of Service Feb 04, 2017. Discharge Summary Admission Date: Feb 01, 2017 at 18:46 Discharge Date: Feb 04, 2017 Discharge Disposition: Home Principal Diagnosis: Pancreatitis in the setting of ulcerative colitis Problems/Secondary Diagnoses: Pancreatitis, Ulcerative colitis, Pancytopenia secondary to use of humira, anemia secondary to GI blood loss from ulcerative colitis, ABHAY(resolved) and hypokalemia (resolved) Procedures: GALLBLADDER-ABD LIMITED HISTORY: 21 years-old Male pancreatitis - r/o gallstone obstruction acute pancreatitis with concern for biliary obstruction COMPARISON: CT abdomen and pelvis 10/10/2016 TECHNIQUE: Multiple real-time sonographic images of the abdominal right upper quadrant were obtained assessing grayscale appearance and color flow FINDINGS: The imaged portions of the pancreas are unremarkable with distal body and tail obscured by bowel gas. There is mildly increased echogenicity with poor through transmission of the liver suggesting fatty infiltration. No focal hepatic mass. No intrahepatic biliary ductal dilation. Liver measures up to 19.3 cm. Gallbladder is unremarkable without wall thickening, pericholecystic fluid or shadowing cholelithiasis. Common bile duct is normal, 0.4 cm. Imaged right kidney is unremarkable without renal calculi or hydronephrosis. IMPRESSION: 1. Unremarkable right upper quadrant ultrasound without cholelithiasis or sonographic evidence of acute cholecystitis. 2. No biliary ductal dilation. 3. Imaged portions of the pancreas are unremarkable. The above report was generated using voice recognition software. It may contain grammatical, syntax or spelling errors. Electronically signed by: Amilcar Argueta M.D. 02/01/2017 6:12 PM Dictated Date/Time: 02/01/2017 6:08 PM The status of this report is Signed. Consultations: GI Medication Reconciliation New Medications: Ondansetron Odt (Zofran Odt) 8 Mg Soltab 8 MG SL Q8 PRN for Nausea for 30 Days, #90 TAB Continued Medications: Omeprazole (Prilosec) 40 Mg Cap 40 MG PO DAILY PRN for GERD Discontinued Medications: Adalimumab (Humira) 40 Mg/0.8 Ml Kit 40 MG SC UD 40 MG EVERY 15 DAYS, PER PATIENT. Discharge Exam The patient was seen and examined this morning. Pt reports doing well, he is tolerating clear liquid diets without difficulty and is agreeable to slowly advancing his diet. Pt notes he is most concerned about ulcerative colitis causing him issues with abdominal pain and diarrhea as he advanced diet. He has not had abdominal pain, n/v overnight or since yesterday. ROS: Constitutional: No fever, sweats or chills Eyes: No diplopia, no worsening or blurred vision ENT: normal hearing, no trouble swallowing Respiratory: No cough, sputum, dyspnea at rest or on exertion Cardiovascular: No chest pain, tightness or palpitations Abdomen:+ epigastric mild pain, +nausea with full liquids, + vomiting, + diarrhea Musculoskeletal: No joint pain, calf pain, swelling Neurologic: No weakness, numbness/tingling, or balance problems Psychiatric: No anxiety or depression Skin: No rash or itch PE: General: awake, alert, no apparent distress Head: Normocephalic, atraumatic ENT: PERRL, EOMI, no pharyngeal exudate, mucous membranes moist Chest: Clear to auscultation, on room air, no adventitious breath sounds Cardiac: Regular rate and rhythm, no murmur, no JVD, normal peripheral pulses, good capillary refill Abdominal: NABS x 4 quadrants, soft, +tenderness in epigastric to deep palpation , no rebound, guarding or tenderness Extremities: Normal inspection, no peripheral edema or erythema, calfs nontender to palpation Psych: Normal mood and affect Neuro: AAO x 3, strength intact bilaterally and related 5/5, no motor deficits, speech is clear, no peripheral sensory deficits Hospital Course History of Present Illness Source: patient 21 y/o M c/o n/v, abd pain. Pt has a hx of UC and has been on Oriana for about 6 months. While he was on steroids he was doing well, however after a prolonged steroid taper he started to have abd pain. He has been having pain for about 3 weeks and has developed worsening n/v since that time. He states his pain is in the epigastric region and moves inferiorly down the middle. This is much different than his UC flares, which are usually more bloating and discomfort. He has diarrhea at times with blood on occasion. Pt denies fever, SOB, chest pain, LE pain or swelling. He has been able to keep down some liquids , but no solids and his ability to keep down liquids has been decreasing the last few days. Pt follows with Gissel Weber for his UC. Their current plan is to start remicade on Friday. Pt states he felt that some of this started after doing a bowel prep for a c- scope. His scope had "a lot of ulcerations". Physical Exam Vital Signs Date Time Temp Pulse Resp B/P (MAP) Pulse Ox O2 Delivery O2 Flow Rate FiO2 02/01/17 17:32 77 18 104/56 95 Room Air 02/01/17 15:53 72 16 119/63 98 Room Air 02/01/17 15:03 89 02/01/17 13:54 36.9 111 18 117/89 96 Room Air General Appearance: WD/WN, no apparent distress Head: normocephalic, atraumatic Eyes: normal inspection, EOMI ENT: hearing grossly normal Neck: supple Respiratory/Chest: normal breath sounds, no respiratory distress Cardiovascular: regular rate, rhythm, no edema Abdomen/GI: soft, + tenderness (epigastric) Extremities/Musculoskelatal: no calf tenderness, no pedal edema Neurologic/Psych: alert, normal mood/affect, oriented x 3 Skin: normal color, warm/dry Hospital Course: 21 y/o M with a h/o UC currently not in remission, who was admitted on 02/01 for acute pancreatitis Acute Pancreatitis: lipase significantly elevated, RUQ US neg for stones. GI thinks pancreatitis risk much higher due to underlying IBD, also steroids can induce pancreatitis. Has been off steroids for 1 month after being on them for 8 -9 months. Received 1 dose Solu Medrol on admission, then stopped. No leukocytosis now - WBC has acutely dropped and pt now pancytopenic. Afebrile. - No signs of complicated pancreatitis or need for antibiotics or imaging at this time other than US - reduce IVF and allow clear liquid diet today - advance slowly if tolerates - Appreciate GI consultation - lipase down to 251 - Pain better controlled today - pt did not tolerate full liquids at lunch but proceeded to want to be discharged. It was recommended that he stay until dinner to trial foods again but he was adamant about leaving. AMA. Pancytopenia - ANC = 740, then repeat is >1000 this am. - ? from Humira injections, pt repots taking them weekly x 3 weeks, last dose on 01/22 - unsure of pancytopenia etiology - afebrile. UC: dxd 2013 first only in rectum on rectal tx, then progressed to left side colon, was on steroids for 8-9 months and tapered off 1 month ago; was briefly on ASA but did not want to continue; then on Humira for last 6 months with no improvement. Previously followed by Raymon ROLDAN, now sees Dr. Rice/Gissel Weber - treating acute pancreatitis first - hold off on Remicade tx that was to start on 02/03 - outpatient infusion set up for Friday at 8Am per GI. - f/u with GI as outpt after discharge Anemia-microcytic and likely due to ongoing bloody loose stools. Mild, Hgb 13.0 not much drop from 1 month ago was 13.3 - hgb stable currently at 9.2. 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 Total Time Spent: Greater than 30 minutes This includes examination of the patient, discharge planning, medication reconciliation, and communication with other providers. Discharge Instructions Please refer to the electronic Patient Visit Report (Discharge Instructions) for additional information. Follow-Up Follow up with your Primary Care Provider within 1 week. Follow up with your GI within 2 weeks. Additional Copies To Lou Payne DO
== END 2017-02-04 14:44 | disposition left against medical advice (07) | DRG 438 ==
LOC: C.EDB 13:51 → C.MSN 18:46 → ENRESERV 20:18
PROVIDERS: ADMIT Family Medicine; ATTEND Hospitalist
DX: K85.90 Acute pancreatitis without necrosis or infection, unspecified (principal); K51.518 Left sided colitis with other complication; D61.811 Other drug-induced pancytopenia; D50.0 Iron deficiency anemia secondary to blood loss (chronic); N17.9 Acute kidney failure, unspecified; K21.9 Gastro-esophageal reflux disease without esophagitis; E87.6 Hypokalemia; T39.4X5A Adverse effect of antirheumatics, not elsewhere classified, initial encounter; Y92.009 Unspecified place in unspecified non-institutional (private) residence as the place of occurrence of the external cause

== ENCOUNTER → 2017-03-05 | Outpatient (CLI) | payer BC ==
[~2017-03-05] MED LIST changes: -ADAL1KIT SC; +MTH25 PO; +ONDA8TAB62 SL
[2017-03-05 17:37] LABS: BASO % 0.5 %; BASO ABS # 0.03 K/uL (0-0.2); COMPLETE YES; EOS % 6.1 %; IG% 0.2 %; LYMPH % 17.4 %; LYMPH ABS # 1.09 K/uL (1.2-3.4); MEAN CELL VOLUME 79.3 fL (80-100); MEAN CORPUSCULAR HGB CONC 30.3 g/dl (32-36); MEAN PLATELET VOLUME 9.5 fL (7.4-10.4); MONO % 5.3 %; NEUT % 70.5 %; PLATELET COUNT 409 K/uL (130-400); RED BLOOD COUNT 4.54 M/uL (4.7-6.1); WHITE BLOOD COUNT 6.27 K/uL (4.8-10.8)
[2017-03-05 17:49] LABS: ALB/GLOB RATIO 0.9 (0.9-2); ALKALINE PHOSPHATASE 70 U/L (45-117); ALT/SGPT 30 U/L (12-78); AST/SGOT 21 U/L (15-37); BLOOD UREA NITROGEN 3 mg/dl (7-18); CALCIUM 8.9 mg/dl (8.5-10.1); CARBON DIOXIDE 28 mmol/L (21-32); CHLORIDE 105 mmol/L (98-107); CREATININE 1.06 mg/dl (0.60-1.40); GLUCOSE 80 mg/dl (70-99); POTASSIUM 3.7 mmol/L (3.5-5.1); SODIUM 140 mmol/L (136-145)
[2017-03-05 17:53] LABS: C-REACTIVE PROTEIN 0.85 mg/dl (0-0.29)
== END | disposition home or self-care (01) ==
LOC: C.LABPBG 11:55
PROVIDERS: ATTEND Registered Nurse
DX: K51.511 Left sided colitis with rectal bleeding (principal)

== ENCOUNTER 2017-03-10 15:00 | Inpatient (IN) | payer BC ==
[~2017-03-10] VITALS: Ht 180.3 cm; Wt 91.0 kg
[~2017-03-10 15:00] MED LIST changes: -MTH25 PO; -ONDA8TAB62 SL
[2017-03-10] MEDS ORDERED: ONDANSETRON INJ 2 MG/ML 2 ML VIAL IV STA (15:32)
[2017-03-10] MEDS ORDERED: MoRPHine SULFATE 10 MG/ML CARP/VIAL IV PRN (15:45)
[2017-03-10] MEDS ORDERED: OPTIRAY 320 IV PRN (15:45)
[2017-03-10] MEDS ORDERED: LACTATED RINGER'S 1000ML 1,000 ML IV ONE (15:45)
[2017-03-10 16:05] LABS: BASO % 0.4 %; BASO ABS # 0.04 K/uL (0-0.2); COMPLETE YES; HEMATOCRIT 37.7 % (42-52); IG% 0.2 %; LYMPH % 7.5 %; LYMPH ABS # 0.84 K/uL (1.2-3.4); MEAN CELL VOLUME 78.4 fL (80-100); MEAN CORPUSCULAR HEMOGLOBIN 24.1 pg (25-34); MEAN CORPUSCULAR HGB CONC 30.8 g/dl (32-36); MEAN PLATELET VOLUME 9.2 fL (7.4-10.4); MONO % 12.7 %; NEUT % 78.2 %; PLATELET COUNT 384 K/uL (130-400); RED BLOOD COUNT 4.81 M/uL (4.7-6.1); WHITE BLOOD COUNT 11.22 K/uL (4.8-10.8)
[2017-03-10] MEDS ORDERED: MTH25 PO (16:17)
[2017-03-10 16:23] LABS: BUN/CREATININE RATIO 3.4 (10-20); CALCIUM 9.4 mg/dl (8.5-10.1); CREATININE 1.22 mg/dl (0.60-1.40); POTASSIUM 3.7 mmol/L (3.5-5.1)
[2017-03-10 17:07] LABS: URINE APPEARANCE CLEAR (CLEAR); URINE BILIRUBIN NEG (NEG); URINE COLOR YELLOW; URINE NITRITE NEG (NEG); URINE PH 8.5 (4.5-7.5); URINE SPECIFIC GRAVITY 1.003 (1.000-1.030); UROBILINOGEN NEG (NEG)
[2017-03-10 17:14] LABS: MANUAL MICROSCOPIC REQUIRED? NO; REVIEW REQ? NO
--- NOTE | 2017-03-10 18:32 | DIAGNOSTIC IMAGING REPORT ---
ABDOMEN AND PELVIS CT WITH IV AND ORAL CONTRAST CT DOSE: 362.48 mGy.cm HISTORY: Acute generalized abdominal pain with vomiting ABDOMINAL PAIN/GI TECHNIQUE: Multiaxial CT images of the abdomen and pelvis were performed following the use of intravenous and oral contrast. 92 mL Optiray 320 IV contrast administered. A dose lowering technique was utilized adhering to the principles of ALARA. COMPARISON STUDY: CT abdomen and pelvis 10/10/2016, right upper quadrant ultrasound 02/01/2017. FINDINGS: Lung bases are clear. 2 mm calcified granuloma of the basal left lower lobe. No pneumoperitoneum. The imaged inferior cardiac chambers are unremarkable. There is suggested fatty infiltration of the liver. No intrahepatic biliary ductal dilation. The spleen, pancreas, gallbladder and adrenal glands are within normal limits. Kidneys, ureters and urinary bladder are unremarkable. The abdominal aorta is normal in both course and caliber. There is no bulky adenopathy identified. There is no bowel obstruction identified. There is moderate to severe wall thickening with mucosal hyperemia and surrounding inflammatory stranding with proliferation of the mesenteric vasculature and ahaustral fold pattern involving the colon extending from the hepatic flexure to the rectum. Mildly prominent lymph nodes of the sigmoid mesocolon are seen measuring up to 9 mm in short axis. Air-fluid levels throughout the colon suggests associated diarrheal state. The appendix is air-filled and appears normal. Soft tissues are unremarkable. Bones appear intact. Mild multilevel endplate degenerative changes. No evidence of sacroiliitis. IMPRESSION: 1. Moderate to severe wall thickening with mucosal hyperemia, surrounding inflammatory stranding and ahaustral fold pattern involving the colon extending from the hepatic flexure to the rectum suggests inflammatory bowel disease or less likely infectious colitis. Air-fluid levels throughout the colon compatible with associated diarrheal state. Gastrointestinal consultation recommended. 2. Normal appendix. 3. No bowel obstruction. 4. Mild adenopathy about the lower abdomen and pelvis is likely reactive. Electronically signed by: Amilcar Argueta M.D. 03/10/2017 6:31 PM Dictated Date/Time: 03/10/2017 6:24 PM
[2017-03-10] MEDS ORDERED: PIPERACILLIN/TAZOBACTAM 4.5 GM/100ML D5W IV STA (18:53)
--- NOTE | 2017-03-10 20:09 | History and Physical ---
History & Physical Date & Time of Service: Mar 10, 2017 at 20:09 Chief Complaint: Throwing Up, Cant Eat Or Drink Primary Care Physician: Gissel Weber C.R.N.P. History of Present Illness Source: patient, hospital records The patient is a 22-year-old male with a past medical history including ulcerative colitis and pancreatitis, who presents to the emergency department with symptoms of abdominal discomfort extending across the upper abdomen and down his left lower quadrant, that has been progressively worsening since the early part of January when he abruptly stopped taking a course of prednisone that he had been on for approximately 9 months. He states that he was running out of the prescription of prednisone, and stopped it on that basis. He follows with gastroenterology Dr. Rice, and reports that Remicade IV and oral methotrexate have not been adequately controlling his symptoms. The last time he was able to work was approximately 4 months ago. He has not had any recent travels or sick exposures. Family History FH: cancer Social History Smoking Status: Never Smoker Smokeless Tobacco Use: No Alcohol Use: none Drug Use: none Marital Status: single Occupational Status: employed Immunizations History of Influenza Vaccine: Unknown History of Tetanus Vaccine?: Unknown History of Pneumococcal: Unknown History of Hepatitis B Vaccine: Unknown Multi-Drug Resistant Organisms History of MDRO: No Allergies Coded Allergies: No Known Allergies (Unverified , 03/10/17) Home Medications Scheduled Methotrexate (Methotrexate), 6 TAB PO WK Scheduled PRN Omeprazole (Prilosec), 40 MG PO DAILY PRN for GERD Review of Systems The patient denies chest pain, palpitations, shortness of breath, cough, lower extremity swelling, sore throat, fevers, chills, sweats, fatigue, nausea, vomiting, blood in urine, dysuria, urinary frequency or urgency, lightheadedness, dizziness, headache, memory loss, loss of consciousness, rash, abnormal bruising or bleeding, imbalance, focal or generalized weakness, numbness or tingling in arms or legs, generalized arthralgias or myalgias, back or neck pain, or night sweats. The review of systems is otherwise negative other than for that already noted above, and at least 10 systems have been reviewed. Physical Exam Vital Signs Date Time Temp Pulse Resp B/P (MAP) Pulse Ox O2 Delivery O2 Flow Rate FiO2 03/10/17 19:08 103 18 101/65 96 Room Air 03/10/17 18:22 104 16 98/59 95 Room Air 03/10/17 16:52 108 16 108/71 96 Room Air 03/10/17 15:12 37.0 97 18 109/72 98 Room Air The patient is awake, well-developed and adequately nourished, alert and oriented 3, normocephalic and atraumatic, lying in bed and in no acute distress. HEENT--PERRL, EOMI, mucous membranes and oropharynx dry. Neck--supple, no JVD or bruits, thyroid normal, trachea midline, no adenopathy. Heart--normal S1 and S2, no extra beats, no murmurs, rubs or gallops. Lungs--clear bilaterally with good air movement, no respiratory distress, no accessory muscle use. Abdomen--normal bowel sounds and soft, tender from right upper quadrant across the epigastrium to left upper quadrant descending to left groin area, nondistended, no hernias or masses, no organomegaly. Extremities--no cyanosis, clubbing or edema. There are good distal pulses b/l. Dermatologic--normal skin turgor, normal color, warm and dry, no abnormal lymph nodes, no rash. Neurologic--cranial nerves II through XII grossly intact. Rheumatologic--normal range of motion. Psychiatric--normal affect. Diagnostics Laboratory Results Results Past 24 Hours Test 03/10/17 15:38 03/10/17 16:50 Range/Units White Blood Count 11.22 4.8-10.8 K/uL Red Blood Count 4.81 4.7-6.1 M/uL Hemoglobin 11.6 14.0-18.0 g/dL Hematocrit 37.7 42-52 % Mean Corpuscular Volume 78.4 80-100 fL Mean Corpuscular Hemoglobin 24.1 25-34 pg Mean Corpuscular Hemoglobin Concent 30.8 32-36 g/dl Platelet Count 384 130-400 K/uL Mean Platelet Volume 9.2 7.4-10.4 fL Neutrophils (%) (Auto) 78.2 % Lymphocytes (%) (Auto) 7.5 % Monocytes (%) (Auto) 12.7 % Eosinophils (%) (Auto) 1.0 % Basophils (%) (Auto) 0.4 % Neutrophils # (Auto) 8.79 1.4-6.5 K/uL Lymphocytes # (Auto) 0.84 1.2-3.4 K/uL Monocytes # (Auto) 1.42 0.11-0.59 K/uL Eosinophils # (Auto) 0.11 0-0.5 K/uL Basophils # (Auto) 0.04 0-0.2 K/uL RDW Standard Deviation 43.4 36.4-46.3 fL RDW Coefficient of Variation 15.3 11.5-14.5 % Immature Granulocyte % (Auto) 0.2 % Immature Granulocyte # (Auto) 0.02 0.00-0.02 K/uL Sodium Level 137 136-145 mmol/L Potassium Level 3.7 3.5-5.1 mmol/L Chloride Level 101 98-107 mmol/L Carbon Dioxide Level 26 21-32 mmol/L Anion Gap 10.0 3-11 mmol/L Blood Urea Nitrogen 4 7-18 mg/dl Creatinine 1.22 0.60-1.40 mg/dl Est Creatinine Clear Calc Drug Dose 107.7 ml/min Estimated GFR () 95.6 Estimated GFR (Non- 82.5 BUN/Creatinine Ratio 3.4 10-20 Random Glucose 87 70-99 mg/dl Calcium Level 9.4 8.5-10.1 mg/dl Total Bilirubin 0.8 0.2-1 mg/dl Direct Bilirubin 0.2 0-0.2 mg/dl Aspartate Amino Transf (AST/SGOT) 10 15-37 U/L Alanine Aminotransferase (ALT/SGPT) 22 12-78 U/L Alkaline Phosphatase 81 45-117 U/L Total Protein 8.1 6.4-8.2 gm/dl Albumin 3.6 3.4-5.0 gm/dl Lipase 300 73-393 U/L Urine Color YELLOW Urine Appearance CLEAR CLEAR Urine pH 8.5 4.5-7.5 Urine Specific [place] 1.003 1.000-1.030 Urine Protein NEG NEG Urine Glucose (UA) NEG NEG Urine Ketones NEG NEG Urine Occult Blood NEG NEG Urine Nitrite NEG NEG Urine Bilirubin NEG NEG Urine Urobilinogen NEG NEG Urine Leukocyte Esterase NEG NEG Diagnostic Radiology Patient Name: KAYFLACO P Unit Number: [id number] Dictated: 03/10/171823 Transcribed: 03/10/171823 [facility] Printed Date/Time: [~ rep prt dt]/[~ rep prt tm] [~ rep ct labl] - [~ rep ct ivnm] [facility] Radiology Department [place], [place] [id number] Dictated: 03/10/171823 Transcribed: 03/10/171823 [facility] Printed Date/Time: [~ rep prt dt]/[~ rep prt tm] [~ rep ct labl] - [~ rep ct ivnm] ABDOMEN AND PELVIS CT WITH IV AND ORAL CONTRAST CT DOSE: 362.48 mGy.cm HISTORY: Acute generalized abdominal pain with vomiting ABDOMINAL PAIN/GI TECHNIQUE: Multiaxial CT images of the abdomen and pelvis were performed following the use of intravenous and oral contrast. 92 mL Optiray 320 IV contrast administered. A dose lowering technique was utilized adhering to the principles of ALARA. COMPARISON STUDY: CT abdomen and pelvis 10/10/2016, right upper quadrant ultrasound 02/01/2017. FINDINGS: Lung bases are clear. 2 mm calcified granuloma of the basal left lower lobe. No pneumoperitoneum. The imaged inferior cardiac chambers are unremarkable. There is suggested fatty infiltration of the liver. No intrahepatic biliary ductal dilation. The spleen, pancreas, gallbladder and adrenal glands are within normal limits. Kidneys, ureters and urinary bladder are unremarkable. The abdominal aorta is normal in both course and caliber. There is no bulky adenopathy identified. There is no bowel obstruction identified. There is moderate to severe wall thickening with mucosal hyperemia and surrounding inflammatory stranding with proliferation of the mesenteric vasculature and ahaustral fold pattern involving the colon extending from the hepatic flexure to the rectum. Mildly prominent lymph nodes of the sigmoid mesocolon are seen measuring up to 9 mm in short axis. Air-fluid levels throughout the colon suggests associated diarrheal state. The appendix is air-filled and appears normal. Soft tissues are unremarkable. Bones appear intact. Mild multilevel endplate degenerative changes. No evidence of sacroiliitis. IMPRESSION: 1. Moderate to severe wall thickening with mucosal hyperemia, surrounding inflammatory stranding and ahaustral fold pattern involving the colon extending from the hepatic flexure to the rectum suggests inflammatory bowel disease or less likely infectious colitis. Air-fluid levels throughout the colon compatible with associated diarrheal state. Gastrointestinal consultation recommended. 2. Normal appendix. 3. No bowel obstruction. 4. Mild adenopathy about the lower abdomen and pelvis is likely reactive. Electronically signed by: Amilcar Argueta M.D. 03/10/2017 6:31 PM Dictated Date/Time: 03/10/2017 6:24 PM The status of this report is Signed. Draft = Not yet reviewed or approved by Radiologist. Signed = Reviewed and approved by Radiologist. <AttendingPhy></AttendingPhy> <FamilyPhy>Gissel Weber,C.R.N.P.</FamilyPhy > <PrimaryPhy>Gissel Weber,C.R.N.P.</PrimaryPhy> <UnitNumber>[id number]</ UnitNumber> <VisitNumber>[id number]</VisitNumber> <PatientName>FLACO VILLANUEVA </PatientName> <DateOfBirth>1995</DateOfBirth> <Location>[facility]</Location> <ServiceDate>03/10/17</ServiceDate> <MNE>ESINDI</MNE> <OrderingPhy>Nimesh Azul PA-C</OrderingPhy> <OrderingPhyMNE>f rep ord dr draper</OrderingPhyMNE> < DictatingPhyMNE>f rep dict dr draper</DictatingPhyMNE> <CCListMNE>f rep ct baron</ CCListMNE> <AdmittingPhyMNE>f pt admit dr draper</AdmittingPhyMNE> <AttendingPhyMNE >f pt attend dr draper</AttendingPhyMNE> <ConsultingPhyMNE>f pt consult dr draper</ConsultingPhyMNE> <FamilyPhyMNE>f pt fam dr draper</FamilyPhyMNE> <OtherPhyMNE>f pt other dr draper</OtherPhyMNE> < PrimaryPhyMNE>f pt prim care dr draper</PrimaryPhyMNE> <ReferringPhyMNE>f pt referring dr draper</ReferringPhyMNE> Impression Assessment and Plan Ulcerative colitis exacerbation-- Patient be admitted to the medical surgical floor. Nothing by mouth except ice chips and sips of water. Normal saline with KCl 20 mEq at 100 mils per hour. Zosyn 3.375 mg IV every 6 hours. Stool for culture is pending. Stool for C. difficile and rotavirus is negative. Solu-Medrol 60 mg IV every 6 hours, since his symptoms have significantly worsened with the stoppage of prednisone that he had been on for 9 months. He will need IV steroids to address adrenal insufficiency issues as well. 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 Zofran 4 mg IV every 6 hours when necessary. Famotidine 20 mg IV every 12 hours. Morphine sulfate 2-4 mg IV every 2 hours when necessary. Level of Care Med/Surg Advanced Directives Existing Advance Directive: No Existing Living Will: No Existing Power of Economic Specialist: No Resuscitation Status FULL RESUSCITATION VTE Prophylaxis Risk Level: Low Given or contraindicated: SCD's Social Service Consult None Apply
[2017-03-10] MEDS ORDERED: MoRPHine SULFATE 2 MG/ML CARP IV PRN (20:15)
[2017-03-10] MEDS ORDERED: ACETAMINOPHEN 325 MG TAB PO PRN (20:15)
[2017-03-10] MEDS ORDERED: ACETAMINOPHEN IV 100 ML IV PRN (20:15)
[2017-03-10] MEDS ORDERED: ONDANSETRON INJ 2 MG/ML 2 ML VIAL IV PRN (20:15)
[2017-03-10] MEDS ORDERED: MoRPHine SULFATE 4 MG/ML 1 ML CARP\\VIAL IV PRN (20:15)
[2017-03-10] MEDS ORDERED: FAMOTIDINE IV INJ 20 MG in DEXTROSE 5% 100ML 100 ML IV SCH (21:00)
--- NOTE | 2017-03-10 21:12 | EMERGENCY ROOM VISIT NOTE ---
ED Visit Note First contact with patient: 15:16 Chief Complaint: I'm having stomach pain and vomiting. History of Present Illness: Mr. Nobles is a 22 year-old white male who ambulates into the ED accompanied by female friend complaining of mid lower quadrant abdominal pain, nausea, vomiting and diarrhea. Complaining of quadrant abdominal pain. Historically patient reports histories of pancreatitis and ulcerative colitis. Patient reports a gradual onset of mid lower quadrant abdominal pain that started approximately 2 days ago. Since that time the pain has been constant and gradually increasing in intensity. The pain is currently described as sharp. He rates his discomfort 9/10. His pain worsens when he attempts to be anything and ambulation. He has not identified any alleviating factors related to his pain. He reports he has attempted to take his prescribed medications but has been unsuccessful because of nausea and vomiting. Associated with his pain as previously noted he has been nauseated and has had multiple episodes of vomiting, he continues to note multiple watery stools with bright red blood per rectum but does not feel its worst than normal and he has had a decreased appetite. Patient denies fevers, chills, sweats, skin eruptions, skin color changes, upper respiratory tract symptoms, shortness of breath, chest pain, constipation , black/tarry stools, urinary symptoms, hematuria, back/flank pain. Review of Systems: As noted above in history of present illness. All body systems were reviewed and found to be negative as noted above. Past Medical History: As noted above and GERD, iron deficiency anemia. Current Medications: Methotrexate, Prilosec, Humira. Allergies to Medications: Patient denies. Social History: Patient is currently employed; he feels safe in his home environment; he denies tobacco use and admits to alcohol use. Physical Examination: Vital Signs: Date Time Temp Pulse Resp B/P (MAP) Pulse Ox O2 Delivery O2 Flow Rate FiO2 03/10/17 20:34 96 18 101/66 98 Room Air 03/10/17 19:08 103 18 101/65 96 Room Air 03/10/17 18:22 104 16 98/59 95 Room Air 03/10/17 16:52 108 16 108/71 96 Room Air 03/10/17 15:12 37.0 97 18 109/72 98 Room Air GENERAL: 22-year-old male in mild to moderate distress due to pain, nontoxic- appearing, afebrile and hemodynamically stable. NEUROLOGICAL: Awake, alert and oriented to person, place and time. Answering questions appropriately and following commands. Normal gait. Good hand eye coordination. SKIN: Warm, dry and pink. No soft tissue eruptions or trauma noted. HEENT: Atraumatic and normocephalic. PERRLA. Sclera white and conjunctiva pink. Oral cavity moist and pink. Pharynx is nonerythematous or edematous. Speech normal. No lymphadenopathy. Trachea midline. No jugular venous distention. BACK: No tenderness over the bony spine. No CVA tenderness. THORAX: Lungs sounds are clear to auscultation and equal bilaterally with symmetrical chest wall. No wheezing, rales or rhonchi. No crepitus, tenderness , subcutaneous air or deformities noted. HEART: Regular rate and rhythm. No gallops, rubs or murmurs are appreciated. ABDOMEN: Flat and soft and mild to moderate tenderness in the mid lower quadrant and left lower quadrant. Decreased bowel sounds in all quadrants. No guarding, rigidity or organomegaly. EXTREMITIES: Moves all extremities well on command and with purpose. All distal neurovascular statuses are intact and equal bilaterally. ED Course: Patient is assessed as noted above. Laboratory Testing: Test 03/10/17 15:38 03/10/17 16:50 Range/Units White Blood Count 11.22 4.8-10.8 K/uL Red Blood Count 4.81 4.7-6.1 M/uL Hemoglobin 11.6 14.0-18.0 g/dL Hematocrit 37.7 42-52 % Mean Corpuscular Volume 78.4 80-100 fL Mean Corpuscular Hemoglobin 24.1 25-34 pg Mean Corpuscular Hemoglobin Concent 30.8 32-36 g/dl Platelet Count 384 130-400 K/uL Mean Platelet Volume 9.2 7.4-10.4 fL Neutrophils (%) (Auto) 78.2 % Lymphocytes (%) (Auto) 7.5 % Monocytes (%) (Auto) 12.7 % Eosinophils (%) (Auto) 1.0 % Basophils (%) (Auto) 0.4 % Neutrophils # (Auto) 8.79 1.4-6.5 K/uL Lymphocytes # (Auto) 0.84 1.2-3.4 K/uL Monocytes # (Auto) 1.42 0.11-0.59 K/uL Eosinophils # (Auto) 0.11 0-0.5 K/uL Basophils # (Auto) 0.04 0-0.2 K/uL RDW Standard Deviation 43.4 36.4-46.3 fL RDW Coefficient of Variation 15.3 11.5-14.5 % Immature Granulocyte % (Auto) 0.2 % Immature Granulocyte # (Auto) 0.02 0.00-0.02 K/uL Sodium Level 137 136-145 mmol/L Potassium Level 3.7 3.5-5.1 mmol/L Chloride Level 101 98-107 mmol/L Carbon Dioxide Level 26 21-32 mmol/L Anion Gap 10.0 3-11 mmol/L Blood Urea Nitrogen 4 7-18 mg/dl Creatinine 1.22 0.60-1.40 mg/dl Est Creatinine Clear Calc Drug Dose 107.7 ml/min Estimated GFR () 95.6 Estimated GFR (Non- 82.5 BUN/Creatinine Ratio 3.4 10-20 Random Glucose 87 70-99 mg/dl Calcium Level 9.4 8.5-10.1 mg/dl Total Bilirubin 0.8 0.2-1 mg/dl Direct Bilirubin 0.2 0-0.2 mg/dl Aspartate Amino Transf (AST/SGOT) 10 15-37 U/L Alanine Aminotransferase (ALT/SGPT) 22 12-78 U/L Alkaline Phosphatase 81 45-117 U/L Total Protein 8.1 6.4-8.2 gm/dl Albumin 3.6 3.4-5.0 gm/dl Lipase 300 73-393 U/L Urine Color YELLOW Urine Appearance CLEAR CLEAR Urine pH 8.5 4.5-7.5 Urine Specific [place] 1.003 1.000-1.030 Urine Protein NEG NEG Urine Glucose (UA) NEG NEG Urine Ketones NEG NEG Urine Occult Blood NEG NEG Urine Nitrite NEG NEG Urine Bilirubin NEG NEG Urine Urobilinogen NEG NEG Urine Leukocyte Esterase NEG NEG Patient was requested a stool sample but was unable to provide one. Contrast Abdominal/Pelvic CT: Was reviewed by myself and read by the radiologist showing moderate to severe wall thickening with mucosal hyperemia, surrounding inflammatory stranding and ahaustral folding pattern involving the colon extending from the hepatic flexure to the rectum suggestive of inflammatory bowel disease or infectious colitis. Also noted was air-fluid levels throughout the colon compatible with diarrheal illness. Normal- appearing appendix. No bowel obstruction. Mild adenopathy about the lower abdomen and pelvis. Patient was hydrated with lactated Ringer and was given 6 mg of morphine IV for pain and 4 mg of Zofran IV. Patient was reassessed multiple times during his stay in the emergency department. Patient case was reviewed with Dr. De Luna; we agreed on diagnostic approach, treatment, disposition and plan. I did consult the pharmacist on antibiotic coverage and she did recommend Zosyn. Patient's case was also consulted with the hospitalist and case management for medical observation/admission. Dr. Bueno, the hospitalist, requested that I contact patient mid level provider for recommendations on steroid therapy. Patient's case was consulted with Dr. Lees; she recommended holding steroid therapy until stool cultures were obtained; I did review these recommendations with Dr. Bueno. Patient was educated about today's findings. Clinical Impression: Acute colitis. Decision-Making: Initially my differential diagnosis I considered exacerbation of ulcerative colitis, bowel obstruction, other causes of colitis, appendicitis , urinary tract infection, perforated viscus and other causes. Disposition and Plan: Patient be brought in the hospital for observation/ admission by Ximena; please see his notes and orders for final disposition and plan.
[2017-03-10 21:19] VITALS: BP 127/99; PULSE 100; TEMP 37.4; Ht 180.3 cm; Wt 91.0 kg
[2017-03-10] MEDS ORDERED: PIPERACILL/TAZOBAC CONSULT ACTIVE PRN (21:30)
[2017-03-10 21:55] VITALS: O2SAT 98
[2017-03-10] MEDS: NSS + 20MEQ KCL 1000ML 1,000 ML IV SCH (22:04)
[2017-03-10] MEDS: FAMOTIDINE IV INJ 20 MG in SYRINGE 3 ML IV SCH (23:03)
[2017-03-10] MEDS: METHYLPREDNISOLONE IV 60 MG in SYRINGE 0 ML IV SCH (23:03)
[2017-03-11] VITALS: O2SAT 98
[2017-03-11 00:15] VITALS: BP 108/65; PULSE 91; TEMP 37.5; O2SAT 96
[2017-03-11] MEDS: PIPERACILL/TAZOBAC IV 3.375 GM in DEXTROSE 5% 100ML 100 ML IV SCH ×2 (00:19→08:16)
[2017-03-11 05:59] LABS: BASO % 0.2 %; BASO ABS # 0.01 K/uL (0-0.2); COMPLETE YES; HEMATOCRIT 35.2 % (42-52); IG% 0.2 %; LYMPH % 7.7 %; LYMPH ABS # 0.49 K/uL (1.2-3.4); MEAN CELL VOLUME 78.4 fL (80-100); MEAN CORPUSCULAR HEMOGLOBIN 23.8 pg (25-34); MEAN CORPUSCULAR HGB CONC 30.4 g/dl (32-36); MEAN PLATELET VOLUME 9.3 fL (7.4-10.4); MONO % 1.1 %; NEUT % 90.8 %; PLATELET COUNT 315 K/uL (130-400); RED BLOOD COUNT 4.49 M/uL (4.7-6.1); WHITE BLOOD COUNT 6.33 K/uL (4.8-10.8)
[2017-03-11] MEDS: METHYLPREDNISOLONE IV 60 MG in SYRINGE 0 ML IV SCH ×4 (06:08→21:16)
[2017-03-11 06:10] LABS: INR 1.1 (0.9-1.1); PARTIAL THROMBOPLASTIN RATIO 1.2; PROTHROMBIN TIME (PATIENT) 11.8 SECONDS (9.0-12.0)
[2017-03-11 06:41] LABS: BUN/CREATININE RATIO 5.4 (10-20); CALCIUM 8.9 mg/dl (8.5-10.1); CREATININE 1.1 mg/dl (0.60-1.40); MAGNESIUM 2.2 mg/dl (1.8-2.4); POTASSIUM 4.6 mmol/L (3.5-5.1)
[2017-03-11 07:17] VITALS: BP 99/62; PULSE 75; TEMP 36.4
[2017-03-11] MEDS: NSS + 20MEQ KCL 1000ML 1,000 ML IV SCH ×2 (07:30→21:12)
[2017-03-11] MEDS: FAMOTIDINE IV INJ 20 MG in SYRINGE 3 ML IV SCH ×2 (09:36→21:16)
--- NOTE | 2017-03-11 09:52 | Gastrointestinal Consultation ---
Gastrointestinal Consultation Date of Consultation: Mar 11, 2017 Attending Physician: Dr. Packer Consulting Physician: Dr. Rice/RADHA Franco Reason for Consultation: UC Flare History of Present Illness Patient is a 22 year old male with a history of ulcerative colitis with symptoms refractory to mesalamine therapy, Humira and Prednisone. He has been symptomatic for approximately one year. 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 He was subsequently started on Remicade and Methotrexate. Patient has just completed induction dosing. Despite this, he has been quite symptomatic with complaints of abdominal pain, diarrhea and blood in stool with some anemia noted. He was scheduled for an outpatient evaluation with Dr. Rice in two days but presented to the ER last evening due to progressive abdominal pain as well as nausea with vomiting. On arrival, he was noted to have improved anemia with a H&H of 11.6 and 37.7 up from 10.9 and 36.[address] imaging, however, demonstrated moderate to severe thickening from the rectum to hepatic flexure which is a change from last colonoscopy. CRP has been improving and was 0.85 last week. At present, the patient reports no abdominal pain or nausea/vomiting. 5-6 bowel movements this morning which were watery with tinges of blood. Stool studies remain negative and have been checked several times as an outpatient. Has been started on IV antibiotics and corticosteroids. Past Medical/Surgical History Medical Problems: (1) Dehydration Status: Acute (2) Pancreatitis Status: Acute (3) Ulcerative colitis with rectal bleeding Status: Acute (4) Vomiting Status: Acute Past Medical History: 1. Ulcerative colitis 2. Varicella 3. Ingrown toenail 4. Acute pancreatitis Past Surgical History: 1. T&A 2. Toe nail surgery 3. Complete colonoscopy 4. Oral tooth extraction Family History FH: cancer PGF with colon cancer. Negative for IBD Social History Smoking Status: Never Smoker Alcohol Use: none Drug Use: none Marital Status: single Occupation Status: employed Allergies Coded Allergies: No Known Allergies (Unverified , 03/10/17) Current Medications Home Meds and Scripts Medications Dose Route/Sig Max Daily Dose Days Date Category Methotrexate 2.5 Mg Tab 6 Tab PO WK 03/10/17 Reported Prilosec (Omeprazole) 40 Mg Cap 40 Mg PO DAILY PRN 01/09/17 Reported Review of Systems Constitutional: No problem reported Eyes: No eye pain, No redness ENT: No problem reported Respiratory: No problem reported Cardiac: No problem reported Abdomen: + see HPI Musculoskeletal: No joint pain Male : No problem reported Neuro: No problem reported Psych: No problem reported Endo: No problem reported Skin: No problem reported Physical Exam Date Time Temp Pulse Resp B/P (MAP) Pulse Ox O2 Delivery O2 Flow Rate FiO2 03/11/17 08:00 Room Air 03/11/17 07:17 36.4 75 16 99/62 (74) Room Air 03/11/17 00:15 37.5 91 20 108/65 (79) 96 Room Air 03/11/17 00:00 98 Room Air 03/10/17 21:55 98 Room Air 03/10/17 21:19 37.4 100 16 127/99 03/10/17 20:34 96 18 101/66 98 Room Air 03/10/17 19:08 103 18 101/65 96 Room Air 03/10/17 18:22 104 16 98/59 95 Room Air 03/10/17 16:52 108 16 108/71 96 Room Air 03/10/17 15:12 37.0 97 18 109/72 98 Room Air General Appearance: no apparent distress Eyes: EOMI ENT: hearing grossly normal Neck: supple Respiratory/Chest: lungs clear, normal breath sounds, no respiratory distress Cardiovascular: regular rate, rhythm Abdomen: normal bowel sounds, non tender, soft Extremities: no pedal edema Neurologic/Psych: alert, normal mood/affect, oriented x 3 Skin: warm/dry Laboratory Results Last 24 Hours Test 03/10/17 15:38 03/10/17 16:50 03/11/17 05:45 White Blood Count 11.22 K/uL 6.33 K/uL Red Blood Count 4.81 M/uL 4.49 M/uL Hemoglobin 11.6 g/dL 10.7 g/dL Hematocrit 37.7 % 35.2 % Mean Corpuscular Volume 78.4 fL 78.4 fL Mean Corpuscular Hemoglobin 24.1 pg 23.8 pg Mean Corpuscular Hemoglobin Concent 30.8 g/dl 30.4 g/dl Platelet Count 384 K/uL 315 K/uL Mean Platelet Volume 9.2 fL 9.3 fL Neutrophils (%) (Auto) 78.2 % 90.8 % Lymphocytes (%) (Auto) 7.5 % 7.7 % Monocytes (%) (Auto) 12.7 % 1.1 % Eosinophils (%) (Auto) 1.0 % 0.0 % Basophils (%) (Auto) 0.4 % 0.2 % Neutrophils # (Auto) 8.79 K/uL 5.75 K/uL Lymphocytes # (Auto) 0.84 K/uL 0.49 K/uL Monocytes # (Auto) 1.42 K/uL 0.07 K/uL Eosinophils # (Auto) 0.11 K/uL 0.00 K/uL Basophils # (Auto) 0.04 K/uL 0.01 K/uL RDW Standard Deviation 43.4 fL 43.3 fL RDW Coefficient of Variation 15.3 % 15.2 % Immature Granulocyte % (Auto) 0.2 % 0.2 % Immature Granulocyte # (Auto) 0.02 K/uL 0.01 K/uL Sodium Level 137 mmol/L 138 mmol/L Potassium Level 3.7 mmol/L 4.6 mmol/L Chloride Level 101 mmol/L 103 mmol/L Carbon Dioxide Level 26 mmol/L 26 mmol/L Anion Gap 10.0 mmol/L 9.0 mmol/L Blood Urea Nitrogen 4 mg/dl 6 mg/dl Creatinine 1.22 mg/dl 1.10 mg/dl Est Creatinine Clear Calc Drug Dose 107.7 ml/min 119.5 ml/min Estimated GFR () 95.6 108.3 Estimated GFR (Non- 82.5 93.5 BUN/Creatinine Ratio 3.4 5.4 Random Glucose 87 mg/dl 125 mg/dl Calcium Level 9.4 mg/dl 8.9 mg/dl Total Bilirubin 0.8 mg/dl 0.9 mg/dl Direct Bilirubin 0.2 mg/dl 0.2 mg/dl Aspartate Amino Transf (AST/SGOT) 10 U/L 7 U/L Alanine Aminotransferase (ALT/SGPT) 22 U/L 18 U/L Alkaline Phosphatase 81 U/L 70 U/L Total Protein 8.1 gm/dl 7.3 gm/dl Albumin 3.6 gm/dl 3.1 gm/dl Lipase 300 U/L Urine Color YELLOW Urine Appearance CLEAR Urine pH 8.5 Urine Specific [place] 1.003 Urine Protein NEG Urine Glucose (UA) NEG Urine Ketones NEG Urine Occult Blood NEG Urine Nitrite NEG Urine Bilirubin NEG Urine Urobilinogen NEG Urine Leukocyte Esterase NEG Prothrombin Time 11.8 SECONDS Prothromb Time International Ratio 1.1 Activated Partial Thromboplast Time 31.3 SECONDS Partial Thromboplastin Ratio 1.2 Magnesium Level 2.2 mg/dl Impression Patient is a 22 year old male with a history of ulcerative colitis admitted with midabdominal pain, nausea with vomiting and CT imaging suggestive of thickening from the rectum to the hepatic flexure consistent with active UC. Plan 1. Continue IV Solu-medrol and Zosyn as prescribed. 2. Check a CRP and stool fecal calprotectin. Await stool culture as pending. 3. Continue Remicade and Methotrexate as an outpatient as prescribed. 4. Outpatient evaluation by IBD specialist at tertiary center for further input. 5. Avoid narcotic analgesics and NSAID pain relievers. 6. Clear liquid diet. 7. Supportive measures per primary team. Thank you for allowing us to participate in the care of this pleasant patient. If you have any questions or concerns, please do not hesitate to contact us. Agree with RADHA Franco as above Abd: Soft, NT, ND, +BS Continue current therapy Recommend Outpatient IBD evaluation at tertiary [facility]
--- NOTE | 2017-03-11 11:23 | Hospitalist Progress Note ---
Hospitalist Progress Note Date of Service Mar 11, 2017. Subjective Pt evaluation today including: conversation w/ patient, physical exam, lab review, review of studies, review of inpatient medication list Voiding: no voiding problems Patient resting in bed. No signs of acute distress. Advanced to clear liquid diet by GI- tolerated well. 5-6 loose BMs this AM with some small amounts of blood. Patient denies any fever, chills, sweats, lightheadedness, dizziness, vision changes, CP, palpitations, edema, SOB, wheezing, cough, abdominal pain, nausea, vomiting, urinary symptoms, melena, numbness/tingling, weakness, muscle/joint pain, anxiety/depression, active bleeding, or new skin discoloration/changes. Medications Current Inpatient Medications Medications (Trade) Dose Ordered Sig/Terri Route Start Time Stop Time Status Last Admin Dose Admin Ioversol (Optiray 320) 100 ml UD PRN IV 03/10/17 15:45 03/14/17 15:44 Methylprednisolone Sodium Succinate 60 mg/Syringe 0.96 ml @ 1.5 mls/min Q6H IV 03/10/17 22:00 04/09/17 21:59 03/11/17 09:36 1.5 MLS/MIN Ondansetron HCl (Zofran Inj) 4 mg Q6H PRN IV 03/10/17 20:15 04/09/17 20:14 Acetaminophen 100 ml @ 400 mls/hr Q8H PRN IV 03/10/17 20:15 04/09/17 20:14 03/10/17 22:04 400 MLS/HR Potassium Chloride/Sodium Chloride 1,000 ml @ 100 mls/hr Q10H IV 03/10/17 21:30 04/09/17 21:29 03/10/17 22:04 100 MLS/HR Morphine Sulfate (MoRPHine SULFATE INJ) 2 mg Q2H PRN IV 03/10/17 20:15 03/24/17 20:14 Morphine Sulfate (MoRPHine SULFATE INJ) 4 mg Q2H PRN IV 03/10/17 20:15 03/24/17 20:14 03/10/17 23:11 4 MG Acetaminophen (Tylenol Tab) 650 mg Q4H PRN PO 03/10/17 20:15 04/09/17 20:14 Piperacillin Sod/ Tazobactam Sod 3.375 gm/Dextrose 115 ml @ 28.75 mls/ hr Q8H IV 03/11/17 00:00 03/21/17 00:00 03/11/17 08:16 28.75 MLS/HR Piperacillin Sod/ Tazobactam Sod (Consult) 1 ea UD PRN N/A 03/10/17 21:30 04/09/17 21:29 Famotidine 20 mg/ Syringe 5 ml @ 2.5 mls/min Q12H IV 03/10/17 21:00 04/09/17 20:59 03/11/17 09:36 2.5 MLS/MIN Objective Vital Signs Date Time Temp Pulse Resp B/P (MAP) Pulse Ox O2 Delivery O2 Flow Rate FiO2 03/11/17 08:00 Room Air 03/11/17 07:17 36.4 75 16 99/62 (74) Room Air 03/11/17 00:15 37.5 91 20 108/65 (79) 96 Room Air 03/11/17 00:00 98 Room Air 03/10/17 21:55 98 Room Air 03/10/17 21:19 37.4 100 16 127/99 03/10/17 20:34 96 18 101/66 98 Room Air 03/10/17 19:08 103 18 101/65 96 Room Air 03/10/17 18:22 104 16 98/59 95 Room Air 03/10/17 16:52 108 16 108/71 96 Room Air 03/10/17 15:12 37.0 97 18 109/72 98 Room Air Physical Exam General Appearance: WD/WN, no apparent distress Eyes: normal inspection, PERRL ENT: hearing grossly normal Neck: supple Respiratory/Chest: lungs clear, no respiratory distress, no accessory muscle use Cardiovascular: regular rate, rhythm Abdomen: normal bowel sounds, non tender, soft Extremities: no pedal edema, no calf tenderness Neurologic/Psychiatric: alert, normal mood/affect, oriented x 3 Skin: normal color, warm/dry, no rash Laboratory Results Last 24 Hours Test 03/10/17 15:38 03/10/17 16:50 03/11/17 05:45 03/11/17 09:52 White Blood Count 11.22 K/uL 6.33 K/uL Red Blood Count 4.81 M/uL 4.49 M/uL Hemoglobin 11.6 g/dL 10.7 g/dL Hematocrit 37.7 % 35.2 % Mean Corpuscular Volume 78.4 fL 78.4 fL Mean Corpuscular Hemoglobin 24.1 pg 23.8 pg Mean Corpuscular Hemoglobin Concent 30.8 g/dl 30.4 g/dl Platelet Count 384 K/uL 315 K/uL Mean Platelet Volume 9.2 fL 9.3 fL Neutrophils (%) (Auto) 78.2 % 90.8 % Lymphocytes (%) (Auto) 7.5 % 7.7 % Monocytes (%) (Auto) 12.7 % 1.1 % Eosinophils (%) (Auto) 1.0 % 0.0 % Basophils (%) (Auto) 0.4 % 0.2 % Neutrophils # (Auto) 8.79 K/uL 5.75 K/uL Lymphocytes # (Auto) 0.84 K/uL 0.49 K/uL Monocytes # (Auto) 1.42 K/uL 0.07 K/uL Eosinophils # (Auto) 0.11 K/uL 0.00 K/uL Basophils # (Auto) 0.04 K/uL 0.01 K/uL RDW Standard Deviation 43.4 fL 43.3 fL RDW Coefficient of Variation 15.3 % 15.2 % Immature Granulocyte % (Auto) 0.2 % 0.2 % Immature Granulocyte # (Auto) 0.02 K/uL 0.01 K/uL Sodium Level 137 mmol/L 138 mmol/L Potassium Level 3.7 mmol/L 4.6 mmol/L Chloride Level 101 mmol/L 103 mmol/L Carbon Dioxide Level 26 mmol/L 26 mmol/L Anion Gap 10.0 mmol/L 9.0 mmol/L Blood Urea Nitrogen 4 mg/dl 6 mg/dl Creatinine 1.22 mg/dl 1.10 mg/dl Est Creatinine Clear Calc Drug Dose 107.7 ml/min 119.5 ml/min Estimated GFR () 95.6 108.3 Estimated GFR (Non- 82.5 93.5 BUN/Creatinine Ratio 3.4 5.4 Random Glucose 87 mg/dl 125 mg/dl Calcium Level 9.4 mg/dl 8.9 mg/dl Total Bilirubin 0.8 mg/dl 0.9 mg/dl Direct Bilirubin 0.2 mg/dl 0.2 mg/dl Aspartate Amino Transf (AST/SGOT) 10 U/L 7 U/L Alanine Aminotransferase (ALT/SGPT) 22 U/L 18 U/L Alkaline Phosphatase 81 U/L 70 U/L Total Protein 8.1 gm/dl 7.3 gm/dl Albumin 3.6 gm/dl 3.1 gm/dl Lipase 300 U/L Urine Color YELLOW Urine Appearance CLEAR Urine pH 8.5 Urine Specific [place] 1.003 Urine Protein NEG Urine Glucose (UA) NEG Urine Ketones NEG Urine Occult Blood NEG Urine Nitrite NEG Urine Bilirubin NEG Urine Urobilinogen NEG Urine Leukocyte Esterase NEG Prothrombin Time 11.8 SECONDS Prothromb Time International Ratio 1.1 Activated Partial Thromboplast Time 31.3 SECONDS Partial Thromboplastin Ratio 1.2 Magnesium Level 2.2 mg/dl Assessment and Plan The patient is a 22-year-old male with a past medical history including ulcerative colitis and pancreatitis, who presents to the emergency department with symptoms of abdominal discomfort extending across the upper abdomen and down his left lower quadrant, that has been progressively worsening since the early part of January when he abruptly stopped taking a course of prednisone that he had been on for approximately 9 months. h/o ulcerative colitis w/ acute exacerbation- follows w/ Case: - Admitted to med/surg - GI advanced diet to clear liquid today- continue to advance per GI recommendations - IV NSS + KCl 20 mEq at 100 ml/hr until tolerating full diet - Zosyn IV q6hrs- started on 03/10 - Solu-Medrol 60 mg IV q6 hrs - IV Zofran PRN for nausea - IV Pepcid q12 hrs - IV Morphine 2-4 mg q2 hrs PRN for pain management - C.diff and Rotavirus negative; stool culture and stool fecal calprotectin pending - CRP pending - Consult GI, appreciate recommendations -- Continue Remicade and Methotrexate as an outpatient as prescribed -- Outpatient evaluation by IBD specialist at tertiary center for further input h/o pancreatitis: - Lipase WNL - No evidence of pancreatitis on CT GI prophylaxis: IV Pepcid DVT prophylaxis: Ambulation Code Status: LEVEL I, FULL Dispo: Discharge to home once medically stable- no discharge needs anticipated
[2017-03-11 15:32] VITALS: BP 120/67; PULSE 88; TEMP 36.7; O2SAT 95
[2017-03-12 00:21] VITALS: BP 94/57; PULSE 73; TEMP 36.8; O2SAT 97
[2017-03-12] MEDS: NSS + 20MEQ KCL 1000ML 1,000 ML IV SCH (03:30)
[2017-03-12] MEDS: METHYLPREDNISOLONE IV 60 MG in SYRINGE 0 ML IV SCH ×2 (04:10→09:47)
[2017-03-12 05:58] LABS: HEMATOCRIT 28.2 % (42-52); IG% 0.3 %; LYMPH % 8.2 %; LYMPH ABS # 0.55 K/uL (1.2-3.4); MEAN CELL VOLUME 79.4 fL (80-100); MEAN CORPUSCULAR HEMOGLOBIN 23.4 pg (25-34); MEAN CORPUSCULAR HGB CONC 29.4 g/dl (32-36); MEAN PLATELET VOLUME 9.4 fL (7.4-10.4); NEUT % 88.5 %; PLATELET COUNT 285 K/uL (130-400); RED BLOOD COUNT 3.55 M/uL (4.7-6.1); WHITE BLOOD COUNT 6.71 K/uL (4.8-10.8)
[2017-03-12 06:06] LABS: INR 1.1 (0.9-1.1); PARTIAL THROMBOPLASTIN RATIO 1.1; PROTHROMBIN TIME (PATIENT) 11.6 SECONDS (9.0-12.0)
[2017-03-12 06:41] LABS: ALKALINE PHOSPHATASE 52 U/L (45-117); ALT/SGPT 12 U/L (12-78); AST/SGOT 7 U/L (15-37); BLOOD UREA NITROGEN 6 mg/dl (7-18); C-REACTIVE PROTEIN 3.36 mg/dl (0-0.29); CALCIUM 8.3 mg/dl (8.5-10.1); CARBON DIOXIDE 27 mmol/L (21-32); CHLORIDE 109 mmol/L (98-107); GLUCOSE 141 mg/dl (70-99); MAGNESIUM 2.2 mg/dl (1.8-2.4); POTASSIUM 4.3 mmol/L (3.5-5.1); SODIUM 143 mmol/L (136-145)
[2017-03-12 06:48] LABS: ANISOCYTOSIS PRESENT; COMPLETE YES; DOHLE BODIES 1+; MICROCYTOSIS PRESENT; OVALOCYTES 1+; POIKILOCYTOSIS PRESENT; TOXIC GRANULATION 1+
[2017-03-12 07:29] VITALS: BP 101/58; PULSE 61; TEMP 36.4; O2SAT 96
[2017-03-12] MEDS: FAMOTIDINE IV INJ 20 MG in SYRINGE 3 ML IV SCH (09:02)
--- NOTE | 2017-03-12 09:20 | Gastroenterology Progress Note ---
Progress Note Date of Service: Mar 12, 2017 Subjective Pt evaluation today including: conversation w/ patient, physical exam, chart review, lab review, review of studies, review of inpatient medication list Patient reports no abdominal pain and significant decrease in bowel movements down to 5 over the past 12 hours. Minimal bright red rectal bleeding with bowel movements. Tolerating a full liquid diet. Antibiotic therapy has been discontinued. Continues IV steroid therapy. Fecal calprotectin is pending. CRP 3.36. Review of Systems Constitutional: No fever, No chills Respiratory: No problem reported Cardiac: No problem reported Abdomen: + see HPI Psych: No problem reported Medications Current Inpatient Medications Medications (Trade) Dose Ordered Sig/Terri Route Start Time Stop Time Status Last Admin Dose Admin Ioversol (Optiray 320) 100 ml UD PRN IV 03/10/17 15:45 03/14/17 15:44 Methylprednisolone Sodium Succinate 60 mg/Syringe 0.96 ml @ 1.5 mls/min Q6H IV 03/10/17 22:00 04/09/17 21:59 03/12/17 04:10 1.5 MLS/MIN Ondansetron HCl (Zofran Inj) 4 mg Q6H PRN IV 03/10/17 20:15 04/09/17 20:14 Acetaminophen 100 ml @ 400 mls/hr Q8H PRN IV 03/10/17 20:15 04/09/17 20:14 03/10/17 22:04 400 MLS/HR Potassium Chloride/Sodium Chloride 1,000 ml @ 100 mls/hr Q10H IV 03/10/17 21:30 04/09/17 21:29 03/12/17 03:30 100 MLS/HR Morphine Sulfate (MoRPHine SULFATE INJ) 2 mg Q2H PRN IV 03/10/17 20:15 03/24/17 20:14 Morphine Sulfate (MoRPHine SULFATE INJ) 4 mg Q2H PRN IV 03/10/17 20:15 03/24/17 20:14 03/10/17 23:11 4 MG Acetaminophen (Tylenol Tab) 650 mg Q4H PRN PO 03/10/17 20:15 04/09/17 20:14 Famotidine 20 mg/ Syringe 5 ml @ 2.5 mls/min Q12H IV 03/10/17 21:00 04/09/17 20:59 03/12/17 09:02 2.5 MLS/MIN Objective Vital Signs Date Time Temp Pulse Resp B/P (MAP) Pulse Ox O2 Delivery O2 Flow Rate FiO2 03/12/17 07:51 Room Air 03/12/17 07:29 36.4 61 14 101/58 (72) 96 Room Air 03/12/17 00:21 36.8 73 18 94/57 (69) 97 Room Air 03/12/17 00:00 Room Air 03/11/17 16:00 Room Air 03/11/17 15:32 36.7 88 18 120/67 (84) 95 Room Air Physical Exam General Appearance: WD/WN, no apparent distress Eyes: EOMI ENT: hearing grossly normal Neck: supple Respiratory/Chest: lungs clear, normal breath sounds, no respiratory distress Cardiovascular: regular rate, rhythm Abdomen: normal bowel sounds, non tender, soft Extremities: no pedal edema Neurologic/Psych: alert, normal mood/affect, oriented x 3 Skin: warm/dry Laboratory Results Last 24 Hours Test 03/12/17 00:18 03/12/17 05:32 White Blood Count 6.71 K/uL Red Blood Count 3.55 M/uL Hemoglobin 8.3 g/dL Hematocrit 28.2 % Mean Corpuscular Volume 79.4 fL Mean Corpuscular Hemoglobin 23.4 pg Mean Corpuscular Hemoglobin Concent 29.4 g/dl Platelet Count 285 K/uL Mean Platelet Volume 9.4 fL Neutrophils (%) (Auto) 88.5 % Lymphocytes (%) (Auto) 8.2 % Monocytes (%) (Auto) 3.0 % Eosinophils (%) (Auto) 0.0 % Basophils (%) (Auto) 0.0 % Neutrophils # (Auto) 5.94 K/uL Lymphocytes # (Auto) 0.55 K/uL Monocytes # (Auto) 0.20 K/uL Eosinophils # (Auto) 0.00 K/uL Basophils # (Auto) 0.00 K/uL RDW Standard Deviation 43.1 fL RDW Coefficient of Variation 14.9 % Immature Granulocyte % (Auto) 0.3 % Immature Granulocyte # (Auto) 0.02 K/uL Toxic Granulation 1+ Dohle Bodies 1+ Poikilocytosis PRESENT Anisocytosis PRESENT Microcytosis PRESENT Ovalocytes 1+ Prothrombin Time 11.6 SECONDS Prothromb Time International Ratio 1.1 Activated Partial Thromboplast Time 28.5 SECONDS Partial Thromboplastin Ratio 1.1 Sodium Level 143 mmol/L Potassium Level 4.3 mmol/L Chloride Level 109 mmol/L Carbon Dioxide Level 27 mmol/L Anion Gap 6.0 mmol/L Blood Urea Nitrogen 6 mg/dl Creatinine 0.70 mg/dl Est Creatinine Clear Calc Drug Dose 187.8 ml/min Estimated GFR () > 150.0 Estimated GFR (Non- 132.1 BUN/Creatinine Ratio 8.0 Random Glucose 141 mg/dl Calcium Level 8.3 mg/dl Magnesium Level 2.2 mg/dl Total Bilirubin 0.3 mg/dl Direct Bilirubin 0.1 mg/dl Aspartate Amino Transf (AST/SGOT) 7 U/L Alanine Aminotransferase (ALT/SGPT) 12 U/L Alkaline Phosphatase 52 U/L C-Reactive Protein 3.36 mg/dl Total Protein 6.0 gm/dl Albumin 2.6 gm/dl Assessment and Plan 1. Advanced diet to low residue and low lactose. 2. Could consider to transition to oral Prednisone at 40 mg daily to be decreased by 5 mg weekly until complete. 3. Continue Remicade and Methotrexate (takes on Sundays) as outpatient. 4. Outpatient IBD clinic referral. 5. Continue oral iron supplementation upon discharge. 6. Okay to discharge from GI perspective if cleared by primary team.
[2017-03-12] MEDS ORDERED: PRED10TA PO (09:32)
--- NOTE | 2017-03-12 09:41 | Discharge Instructions ---
Discharge Instructions Date of Service Mar 12, 2017. Admission Reason for Admission: Acute Ulcer Colitis With Rectal Bleeding, Dehydrat Discharge Discharge Diagnosis / Problem: Ulcerative colitis flare; dehydration Discharge Goals Goal(s): Decrease discomfort, Improve function, Improve disease control, Improve nutritional status, Learn about illness, Therapeutic intervention, Prevent Disease Progression Activity Recommendations Activity Limitations: resume your previous activity . Instructions / Follow-Up Instructions / Follow-Up You were admitted to [facility] due to an ulcerative colitis flare. You were treated with IV antibiotics, steroids, and fluids. Your symptoms have improved and you are stable for discharge. Continue Remicade and Methotrexate as prescribed Continue oral iron supplement GI has recommended a slow Prednisone taper: 40 mg x7 days- START THIS TOMORROW (03/12- 03/19) 35 mg x7 days (03/20-03/26 30 mg x7 days (03/27-04/02) 25 mg x7 days (04/03-04/09) 20 mg x7 days (04/10-04/16) 15 mg x7 days (04/17-04/23) 10 mg x7 days (04/24-04/30) 5 mg x7 days (05/01-05/07) Resume all other regular home medications as prescribed FOLLOW-UPS: Please follow-up with your PCP within 5-7 days Please follow-up with GI as instructed- GI has placed a referral for IBD clinic Please follow-up/keep all of your subspecialty appointments Current Hospital Diet Patient's current hospital diet: Low Fiber Diet, Low Lactose Diet Discharge Diet Recommended Diet: Low Fiber Diet, Low Lactose Diet Pending Studies Studies pending at discharge: no Medical Emergencies . Who to Call and When: Medical Emergencies: If at any time you feel your situation is an emergency, please call 911 immediately. . Non-Emergent Contact Non-Emergency issues call your: Primary Care Provider, [employer] Call Non-Emergent contact if: you have a fever, your pain is not controlled, your pain is worsening, your pain is unusual for you, your pain is concerning you, you have any medication questions . . "Provider Documentation" section prepared by Kelly Maurer. . VTE Core Measure Inpt VTE Proph given/why not?: SCD's
--- NOTE | 2017-03-12 09:49 | Discharge Summary ---
Discharge Summary Date of Service Mar 12, 2017. Discharge Summary Admission Date: Mar 10, 2017 at 20:12 Discharge Date: Mar 12, 2017 Discharge Disposition: Home Principal Diagnosis: Ulcerative colitis flare Problems/Secondary Diagnoses: h/o pancreatitis Immunizations: Have You Had Influenza Vaccine: Unknown History of Tetanus Vaccine?: Unknown History of Pneumococcal: Unknown History of Hepatitis B Vaccine: Unknown Procedures: ABDOMEN AND PELVIS CT WITH IV AND ORAL CONTRAST CT DOSE: 362.48 mGy.cm HISTORY: Acute generalized abdominal pain with vomiting ABDOMINAL PAIN/GI TECHNIQUE: Multiaxial CT images of the abdomen and pelvis were performed following the use of intravenous and oral contrast. 92 mL Optiray 320 IV contrast administered. A dose lowering technique was utilized adhering to the principles of ALARA. COMPARISON STUDY: CT abdomen and pelvis 10/10/2016, right upper quadrant ultrasound 02/01/2017. FINDINGS: Lung bases are clear. 2 mm calcified granuloma of the basal left lower lobe. No pneumoperitoneum. The imaged inferior cardiac chambers are unremarkable. There is suggested fatty infiltration of the liver. No intrahepatic biliary ductal dilation. The spleen, pancreas, gallbladder and adrenal glands are within normal limits. Kidneys, ureters and urinary bladder are unremarkable. The abdominal aorta is normal in both course and caliber. There is no bulky adenopathy identified. There is no bowel obstruction identified. There is moderate to severe wall thickening with mucosal hyperemia and surrounding inflammatory stranding with proliferation of the mesenteric vasculature and ahaustral fold pattern involving the colon extending from the hepatic flexure to the rectum. Mildly prominent lymph nodes of the sigmoid mesocolon are seen measuring up to 9 mm in short axis. Air-fluid levels throughout the colon suggests associated diarrheal state. The appendix is air-filled and appears normal. Soft tissues are unremarkable. Bones appear intact. Mild multilevel endplate degenerative changes. No evidence of sacroiliitis. IMPRESSION: 1. Moderate to severe wall thickening with mucosal hyperemia, surrounding inflammatory stranding and ahaustral fold pattern involving the colon extending from the hepatic flexure to the rectum suggests inflammatory bowel disease or less likely infectious colitis. Air-fluid levels throughout the colon compatible with associated diarrheal state. Gastrointestinal consultation recommended. 2. Normal appendix. 3. No bowel obstruction. 4. Mild adenopathy about the lower abdomen and pelvis is likely reactive. Electronically signed by: Amilcar Argueta M.D. 03/10/2017 6:31 PM Dictated Date/Time: 03/10/2017 6:24 PM The status of this report is Signed. Draft = Not yet reviewed or approved by Radiologist. Signed = Reviewed and approved by Radiologist. Consultations: GI Medication Reconciliation New Medications: Prednisone Tab (Prednisone) 10 Mg Tab 10 MG PO UD for 56 Days, #126 TAB 40 mg x7 days 35 mg x7 days 30 mg x7 days 25 mg x7 days 20 mg x7 days 15 mg x7 days 10 mg x7 days 5 mg x7 days Continued Medications: Methotrexate (Methotrexate) 2.5 Mg Tab 6 TAB PO WK Omeprazole (Prilosec) 40 Mg Cap 40 MG PO DAILY PRN for GERD Discharge Exam Review of Systems: Constitutional: No fever, No chills, No sweats, No weakness, No fatigue ENT: No hearing loss Respiratory: No cough, No shortness of breath, No hemoptysis Cardiovascular: No chest pain, No edema, No palpitations Abdomen: + diarrhea, No pain, No nausea, No vomiting, No constipation, No GI bleeding Musculoskeletal: No joint pain, No muscle pain, No swelling, No calf pain Genitourinary - Male: No hematuria, No dysuria Neurologic: No weakness, No numbness/tingling Psychiatric: No depression symptoms, No anxiety Endocrine: No fatigue Hematologic / Lymphatic: No abnormal bleeding/bruising Integumentary: No rash, No itch, No new/changing skin lesions Physical Exam: General Appearance: WD/WN, no apparent distress Eyes: normal inspection, PERRL ENT: hearing grossly normal Neck: supple Respiratory/Chest: lungs clear, normal breath sounds, no respiratory distress, no accessory muscle use Cardiovascular: regular rate, rhythm Abdomen / GI: normal bowel sounds, non tender, soft Extremities: no calf tenderness, no pedal edema Neurologic/Psychiatric: alert, normal mood/affect, oriented x 3 Skin: normal color, warm/dry, no rash Hospital Course Admission H&P: The patient is a 22-year-old male with a past medical history including ulcerative colitis and pancreatitis, who presents to the emergency department with symptoms of abdominal discomfort extending across the upper abdomen and down his left lower quadrant, that has been progressively worsening since the early part of January when he abruptly stopped taking a course of prednisone that he had been on for approximately 9 months. He states that he was running out of the prescription of prednisone, and stopped it on that basis. He follows with gastroenterology Dr. Rice, and reports that Remicade IV and oral methotrexate have not been adequately controlling his symptoms. The last time he was able to work was approximately 4 months ago. He has not had any recent travels or sick exposures. Physical Exam Vital Signs Date Time Temp Pulse Resp B/P (MAP) Pulse Ox O2 Delivery O2 Flow Rate FiO2 03/10/17 19:08 103 18 101/65 96 Room Air 03/10/17 18:22 104 16 98/59 95 Room Air 03/10/17 16:52 108 16 108/71 96 Room Air 03/10/17 15:12 37.0 97 18 109/72 98 Room Air The patient is awake, well-developed and adequately nourished, alert and oriented 3, normocephalic and atraumatic, lying in bed and in no acute distress. HEENT--PERRL, EOMI, mucous membranes and oropharynx dry. Neck--supple, no JVD or bruits, thyroid normal, trachea midline, no adenopathy. Heart--normal S1 and S2, no extra beats, no murmurs, rubs or gallops. Lungs--clear bilaterally with good air movement, no respiratory distress, no accessory muscle use. Abdomen--normal bowel sounds and soft, tender from right upper quadrant across the epigastrium to left upper quadrant descending to left groin area, nondistended, no hernias or masses, no organomegaly. Extremities--no cyanosis, clubbing or edema. There are good distal pulses b/l. Dermatologic--normal skin turgor, normal color, warm and dry, no abnormal lymph nodes, no rash. Neurologic--cranial nerves II through XII grossly intact. Rheumatologic--normal range of motion. Psychiatric--normal affect. Hospital Course: The patient is a 22-year-old male with a past medical history including ulcerative colitis and pancreatitis, who presents to the emergency department with symptoms of abdominal discomfort extending across the upper abdomen and down his left lower quadrant, that has been progressively worsening since the early part of January when he abruptly stopped taking a course of prednisone that he had been on for approximately 9 months. h/o ulcerative colitis w/ acute exacerbation- follows w/ Case: - Admitted to med/surg - Advanced diet per GI recommendations - Treated w/ IV NSS + KCl 20 mEq at 100 ml/hr - Zosyn IV q6hrs- started on 03/10 - Solu-Medrol 60 mg IV q6 hrs- discharged on Prednisone taper per GI recommendations (40 mg x7 days, then decrease by 5 mg weekly) - IV Zofran PRN for nausea - IV Pepcid q12 hrs - IV Morphine 2-4 mg q2 hrs PRN for pain management - C.diff and Rotavirus, stool cultures negative; stool fecal calprotectin pending - CRP mildly elevated - Consult GI, appreciate recommendations- stable for discharge from GI standpoint -- Continue Remicade, Methotrexate, and iron supplement as an outpatient as prescribed -- Outpatient evaluation by IBD specialist at tertiary center for further input- GI placed referral -- Slow prednisone taper h/o pancreatitis: - Lipase WNL - No evidence of pancreatitis on CT GI prophylaxis: IV Pepcid DVT prophylaxis: Ambulation Code Status: LEVEL I, FULL Dispo: Discharge to home Total Time Spent: Greater than 30 minutes This includes examination of the patient, discharge planning, medication reconciliation, and communication with other providers. Discharge Instructions Please refer to the electronic Patient Visit Report (Discharge Instructions) for additional information. Follow-Up Please follow-up with your PCP within 5-7 days Please follow-up with GI as instructed Please follow-up/keep all of your subspecialty appointments
[2017-03-12] MEDS ORDERED: FRRS300 PO (10:19)
[2017-03-12 10:28] VITALS: BP 101/58; PULSE 61; TEMP 36.4; O2SAT 96
== END 2017-03-12 12:10 | disposition home or self-care (01) | DRG 387 ==
LOC: C.EDB 15:01 → C.4E 20:12 → ENRESERV 20:24
PROVIDERS: ADMIT Hospitalist; ATTEND Internal Medicine
DX: K51.90 Ulcerative colitis, unspecified, without complications (principal); K21.9 Gastro-esophageal reflux disease without esophagitis; Z79.899 Other long term (current) drug therapy

== ENCOUNTER → 2017-04-01 | Outpatient (CLI) | payer BC ==
[~2017-04-01] MED LIST changes: +FRRS300 PO; +MTH25 PO; +PRED10TA PO
== END | disposition home or self-care (01) ==
LOC: C.LABPBG 11:56
PROVIDERS: ATTEND Physician Assistant
DX: K51.511 Left sided colitis with rectal bleeding (principal); R10.30 Lower abdominal pain, unspecified

== ENCOUNTER 2017-04-22 11:05 | Emergency (ER) | payer BC ==
[~2017-04-22] VITALS: Ht 180.3 cm; Wt 93.9 kg
[2017-04-22 11:09] VITALS: Ht 180.3 cm; Wt 93.9 kg
[2017-04-22] MEDS ORDERED: RMCI IV (12:09)
--- NOTE | 2017-04-22 12:30 | EMERGENCY ROOM VISIT NOTE ---
History Report prepared by Alfonso: Carlitos Marie Under the Supervision of: Dr. Alex Leung M.D. First contact with patient: 12:02 Chief Complaint: ABDOMINAL PAIN Stated Complaint: ULCER FLARE UP Nursing Triage Summary: "I have an ulcerative colitis flare that is really bad. I was taking prednisone and I ran out on friday and now the symptoms are worse." History of Present Illness The patient is a 22 year old white male with a past medical history of ulcerative colitis who presents to the ED with a cc of worsening abdominal pain beginning around 3 days ago. Positive abdominal bloating, difficulty passing stool, nausea, vomiting. He states that his last ulcerative colitis flare-up was 2 months ago, and he thinks he is having another one currently. The patient notes that he gets Remicade infusions, the last one being around 2 months ago. He adds that he only gets the nausea and vomiting when trying to have a bowel movement. Source of History: patient Onset: 3 days ago Position: abdomen Symptom Intensity: ulcerative colitis flare-up Quality: other (pain) Associated Symptoms: + nausea, + vomiting Note: Associated symptoms: Difficulty passing stool, abdominal bloating. Review of Systems See HPI for pertinent positives and negatives. A total of ten systems were reviewed and were otherwise negative. Past Medical & Surgical Medical Problems: (1) Colitis (2) Iron Deficiency Anemia Secondary To Blood Loss (Chronic) (3) Ulcerative Colitis, Unspecified With Rectal Bleeding Surgical Problems: (1) History of colonoscopy Family History FH: cancer Social History Smoking Status: Never Smoker Alcohol Use: none Drug Use: none Marital Status: single Occupation Status: employed Current/Historical Medications Scheduled Dicyclomine Hcl (Bentyl), 1 CAP PO TID Infliximab (Remicade), Unknown Dose IV Q8WK Methotrexate (Methotrexate), 6 TAB PO WK Ondasetron Odt (Zofran Odt), 4 MG SL Q6H Prednisone Tab (Prednisone), 10 MG PO UD Scheduled PRN Omeprazole (Prilosec), 40 MG PO DAILY PRN for GERD Allergies Coded Allergies: No Known Allergies (Unverified , 04/22/17) Physical Exam Vital Signs Date Time Temp Pulse Resp B/P (MAP) Pulse Ox O2 Delivery O2 Flow Rate FiO2 04/22/17 12:53 95 18 126/76 96 Room Air 04/22/17 11:09 37.5 106 18 123/74 100 Room Air Physical Exam GENERAL: Awake, alert, well-appearing, NAD HENT: Normocephalic, atraumatic. EYES: Normal conjunctiva. Sclera non-icteric. NECK: Supple. No nuchal rigidity. FROM. RESPIRATORY: CTAB, no rhonchi, wheezing, crackles CARDIAC: RRR, no MRG ABDOMEN: Soft, NTND, BS+. Negative obturator, negative psoas. MSK: No chest wall TTP, no LE edema. No CVA TTP. NEURO: GCS 15, CN 2-12 intact, moves all 4s on command SKIN: No rash or jaundice noted. Medical Decision & Procedures Laboratory Results 04/22/17 11:50 Red Blood Count 4.20, Mean Corpuscular Volume 75.7, Mean Corpuscular Hemoglobin 22.1, Mean Corpuscular Hemoglobin Concent 29.2, Mean Platelet Volume 8.9, Neutrophils (%) (Auto) 47.4, Lymphocytes (%) (Auto) 24.6, Monocytes (%) (Auto) 25.4, Eosinophils (%) (Auto) 1.9, Basophils (%) (Auto) 0.5, Neutrophils # (Auto ) 2.70, Lymphocytes # (Auto) 1.40, Monocytes # (Auto) 1.45, Eosinophils # (Auto ) 0.11, Basophils # (Auto) 0.03 04/22/17 11:50 Test 04/22/17 11:50 04/22/17 12:45 White Blood Count 5.70 K/uL (4.8-10.8) Red Blood Count 4.20 M/uL (4.7-6.1) Hemoglobin 9.3 g/dL (14.0-18.0) Hematocrit 31.8 % (42-52) Mean Corpuscular Volume 75.7 fL (80-100) Mean Corpuscular Hemoglobin 22.1 pg (25-34) Mean Corpuscular Hemoglobin Concent 29.2 g/dl (32-36) Platelet Count 434 K/uL (130-400) Mean Platelet Volume 8.9 fL (7.4-10.4) Neutrophils (%) (Auto) 47.4 % Lymphocytes (%) (Auto) 24.6 % Monocytes (%) (Auto) 25.4 % Eosinophils (%) (Auto) 1.9 % Basophils (%) (Auto) 0.5 % Neutrophils # (Auto) 2.70 K/uL (1.4-6.5) Lymphocytes # (Auto) 1.40 K/uL (1.2-3.4) Monocytes # (Auto) 1.45 K/uL (0.11-0.59) Eosinophils # (Auto) 0.11 K/uL (0-0.5) Basophils # (Auto) 0.03 K/uL (0-0.2) RDW Standard Deviation 48.7 fL (36.4-46.3) RDW Coefficient of Variation 18.1 % (11.5-14.5) Immature Granulocyte % (Auto) 0.2 % Immature Granulocyte # (Auto) 0.01 K/uL (0.00-0.02) Anion Gap 8.0 mmol/L (3-11) Est Creatinine Clear Calc Drug Dose 124.5 ml/min Estimated GFR () 112.0 Estimated GFR (Non- 96.6 BUN/Creatinine Ratio 7.5 (10-20) Calcium Level 8.6 mg/dl (8.5-10.1) Total Bilirubin 0.6 mg/dl (0.2-1) Aspartate Amino Transf (AST/SGOT) 9 U/L (15-37) Alanine Aminotransferase (ALT/SGPT) 16 U/L (12-78) Alkaline Phosphatase 38 U/L (45-117) Total Protein 7.2 gm/dl (6.4-8.2) Albumin 3.0 gm/dl (3.4-5.0) Globulin 4.2 gm/dl (2.5-4.0) Albumin/Globulin Ratio 0.7 (0.9-2) Lipase 115 U/L (73-393) Urine Color YELLOW Urine Appearance CLOUDY (CLEAR) Urine pH 7.5 (4.5-7.5) Urine Specific [place] 1.007 (1.000-1.030) Urine Protein NEG (NEG) Urine Glucose (UA) NEG (NEG) Urine Ketones NEG (NEG) Urine Occult Blood NEG (NEG) Urine Nitrite NEG (NEG) Urine Bilirubin NEG (NEG) Urine Urobilinogen NEG (NEG) Urine Leukocyte Esterase NEG (NEG) Urine WBC (Auto) 0 /hpf (0-5) Urine RBC (Auto) 0-4 /hpf (0-4) Urine Hyaline Casts (Auto) 0 /lpf (0-5) Urine Epithelial Cells (Auto) 0-5 /lpf (0-5) Urine Bacteria (Auto) NEG (NEG) Laboratory results reviewed by me Medications Administered Medications (Trade) Dose Ordered Sig/Terri Route Start Time Stop Time Status Last Admin Dose Admin Dicyclomine HCl (Bentyl Tab) 20 mg ONE STAT PO 04/22/17 12:32 04/22/17 12:33 DC 04/22/17 12:52 20 MG Metoclopramide HCl (Reglan Inj) 10 mg NOW STAT IV 04/22/17 12:32 04/22/17 12:33 DC 04/22/17 12:53 10 MG Morphine Sulfate (MoRPHine SULFATE INJ) 8 mg STK-MED ONCE .ROUTE 04/22/17 12:50 04/22/17 12:51 DC 04/22/17 12:53 8 MG ED Course 1218: The patient was evaluated in room C4. A complete history and physical exam was performed. 1330: I reevaluated the patient and he is resting comfortably. Discussed results and discharge instructions: he verbalized understanding and agreement. The patient is ready for discharge. Medical Decision The patient is a 22 year old white male with a past medical history of ulcerative colitis who presents to the ED with a cc of worsening abdominal pain beginning around 3 days ago. Positive abdominal bloating, difficulty passing stool, nausea, vomiting. Differential diagnosis: Etiologies such as appendicitis, diverticulitis, PUD, biliary pathology, UTI, pancreatitis, obstruction, mesenteric ischemia, aortic pathology, infections, inflammatory bowel disease, renal colic, as well as others were entertained. Patient was seen and evaluated the bedside. Patient does have a history of ulcerative colitis and sees Weber with GI. Patient states his last flareup was sometime around things giving. Patient denies any recent changes in his diet. Patient does get Remicade infusions every 78 weeks. Patient denies any bloody bowel movements however he does state he has had small caliber stool. Patient denies any fevers chills. Patient has had a little bit of nausea but without vomiting. No recent antibiotics. Patient also does use methotrexate weekly. Patient has a fairly normal and benign abdominal exam. Patient did have blood work completed along with symptom control. Patient does have chronic anemia. Patient's white blood cell count is not significantly elevated nor leukopenic. Patient's LFTs are not significantly elevated. Patient's lipase is fairly normal. On reassessment the patient patient was feeling better. He was able tolerate by mouth. He was given recommendations to help with constipation. Patient does have follow-up with Dr. don 1 week. Patient was told to keep that appointment. Patient was given medications for pain control and nausea. Patient was deemed suitable for outpatient follow-up and treatment. I did not believe the patient had a surgical abdomen nor did he require any more advanced imaging. Patient was given strict follow-up, discharge , and return precautions. All questions were answered. Patient was deemed suitable for outpatient follow-up at this time. Patient agreed with the plan of care and was safely discharged home. Medication Reconcilliation Current Medication List: was personally reviewed by me Blood Pressure Screening Patient's blood pressure: Normal blood pressure Impression Primary Impression: Anemia Additional Impression: Abdominal pain Scribe Attestation The scribe's documentation has been prepared under my direction and personally reviewed by me in its entirety. I confirm that the note above accurately reflects all work, treatment, procedures, and medical decision making performed by me. Departure Information Dispostion Home / Self-Care Prescriptions Ondasetron Odt (ZOFRAN ODT) 4 Mg Tab 4 MG SL Q6H for Nausea, #6 TAB Prov: Alex Leung M.D. 04/22/17 Dicyclomine Hcl (BENTYL) 10 Mg Cap 1 CAP PO TID for 30 Days, #90 CAP 1 Refill Prov: Alex Leung M.D. 04/22/17 Referrals iGssel Weber C.R.N.PGonzalez (PCP) Patient Instructions Constipation, Diet High Fiber, My [facility] Additional Instructions Please return to the emergency department if you have worsening or recurrent symptoms not amenable to at-home treatment. Please call for a follow-up appointment with her primary care physician. Please take your medications as prescribed. If you have other concerns and/or complaints please feel free to also call your primary care physician's office or return the ED for further evaluation, management, and treatment. 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 You may try things like higher fiber in her diet, stool softeners like docusate and senna, clear liquids. If you have constipation does not improve you may consider suppositories and/or enemas. You received narcotic or benzodiazepene medication while in the emergency room today. This is an addictive medication that may cause drowziness as well as constipation. Do not drive, operate heavy machinery, or drink alcohol under the influence of this medication. You may take 600 mg Ibuprofen every 6 hours as needed for pain with food for no more than 2 consecutive days. You may take tylenol 1000 mg every 6 hours as needed for pain. You may take motrin and tylenol separately or at the same time. Take your medications as prescribed. You have been examined and treated today on an emergency basis only. This is not a substitute for, or an effort to provide, complete comprehensive medical care. It is impossible to recognize and treat all injuries or illnesses in a single emergency department visit. It is therefore important that you follow up closely with [facility], your PCP, and/or your specialist(s). Call as soon as possible for an appointment. Thank you for your time and consideration. I look forward to speaking with you again soon. Please don't hesitate to call us if you have any questions. Problem Qualifiers Primary Impression: Anemia Anemia type: unspecified type Qualified Codes: D64.9 - Anemia, unspecified Additional Impression: Abdominal pain Abdominal location: generalized Qualified Codes: R10.84 - Generalized abdominal pain
[2017-04-22] MEDS ORDERED: METOCLOPRAMIDE HCL INJ 5 MG/ML 2 ML VIAL IV STA (12:32)
[2017-04-22] MEDS ORDERED: DICYCLOMINE HCL 20 MG TAB PO STA (12:32)
[2017-04-22] MEDS ORDERED: MoRPHine SULFATE 10 MG/ML CARP/VIAL IV STA (12:32)
[2017-04-22 12:34] LABS: BASO % 0.5 %; BASO ABS # 0.03 K/uL (0-0.2); COMPLETE YES; EOS % 1.9 %; HEMATOCRIT 31.8 % (42-52); IG% 0.2 %; LYMPH % 24.6 %; MEAN CELL VOLUME 75.7 fL (80-100); MEAN CORPUSCULAR HEMOGLOBIN 22.1 pg (25-34); MEAN CORPUSCULAR HGB CONC 29.2 g/dl (32-36); MEAN PLATELET VOLUME 8.9 fL (7.4-10.4); MONO % 25.4 %; NEUT % 47.4 %; PLATELET COUNT 434 K/uL (130-400)
[2017-04-22 12:49] LABS: BUN/CREATININE RATIO 7.5 (10-20); CALCIUM 8.6 mg/dl (8.5-10.1); CREATININE 1.07 mg/dl (0.60-1.40); POTASSIUM 3.7 mmol/L (3.5-5.1)
[2017-04-22] MEDS ORDERED: MoRPHine SULFATE 4 MG/ML 1 ML CARP\\VIAL ONE (12:50)
[2017-04-22 12:52] LABS: ALB/GLOB RATIO 0.7 (0.9-2)
[2017-04-22 13:11] LABS: URINE APPEARANCE CLOUDY (CLEAR); URINE BILIRUBIN NEG (NEG); URINE COLOR YELLOW; URINE EPITHELIAL CELL AUTO 0-5 /lpf (0-5); URINE NITRITE NEG (NEG); URINE PH 7.5 (4.5-7.5); URINE SPECIFIC GRAVITY 1.007 (1.000-1.030); UROBILINOGEN NEG (NEG); ZZUR CULT IF INDIC CLEAN CATCH NO
[2017-04-22 13:12] LABS: MANUAL MICROSCOPIC REQUIRED? NO; REVIEW REQ? NO
[2017-04-22] MEDS ORDERED: DICY10CA55 PO (13:59)
[2017-04-22] MEDS ORDERED: ONDA4TAB10 SL (13:59)
[2017-04-22 14:13] VITALS: BP 126/76; PULSE 95; TEMP 37.5; O2SAT 96
== END 2017-04-22 14:14 | disposition home or self-care (01) ==
LOC: C.EDB 11:08 → C.EDC 14:14
DX: D64.9 Anemia, unspecified (principal); R10.9 Unspecified abdominal pain; K59.00 Constipation, unspecified; R11.2 Nausea with vomiting, unspecified; K51.90 Ulcerative colitis, unspecified, without complications

== ENCOUNTER 2017-04-26 20:40 | Inpatient (IN) | payer BC ==
[~2017-04-26] VITALS: Ht 180.3 cm; Wt 90.7 kg
[~2017-04-26 20:40] MED LIST changes: +DICY10CA55 PO; -FRRS300 PO; +ONDA4TAB10 SL; +RMCI IV
[2017-04-26 20:50] VITALS: Ht 180.3 cm; Wt 90.7 kg
[2017-04-26] MEDS ORDERED: MoRPHine SULFATE 4 MG/ML 1 ML CARP\\VIAL IV STA (21:04)
[2017-04-26] MEDS ORDERED: ONDANSETRON INJ 2 MG/ML 2 ML VIAL IV STA (21:04)
[2017-04-26] MEDS ORDERED: OPTIRAY 320 IV PRN (21:15)
[2017-04-26] MEDS ORDERED: ONDA4TAB10 SL (21:30)
[2017-04-26] MEDS ORDERED: DICY10CA55 PO (21:33)
[2017-04-26] MEDS ORDERED: HYDR25SU20 PR (21:35)
[2017-04-26 22:16] LABS: HEMATOCRIT 31.8 % (42-52); HEMOGLOBIN 9.2 g/dL (14.0-18.0); MEAN CELL VOLUME 75.9 fL (80-100); MEAN CORPUSCULAR HGB CONC 28.9 g/dl (32-36); MEAN PLATELET VOLUME 8.7 fL (7.4-10.4); PLATELET COUNT 369 K/uL (130-400); RED CELL DISTRIBUTION WIDTH CV 17.9 % (11.5-14.5)
[2017-04-26 22:17] LABS: ALBUMIN 2.7 gm/dl (3.4-5.0); ALT/SGPT 12 U/L (12-78); BLOOD UREA NITROGEN 4 mg/dl (7-18); CALCIUM 8.1 mg/dl (8.5-10.1); CARBON DIOXIDE 28 mmol/L (21-32); CREATININE 0.96 mg/dl (0.60-1.40); GLUCOSE 106 mg/dl (70-99); LIPASE 122 U/L (73-393); POTASSIUM 3.5 mmol/L (3.5-5.1); SODIUM 138 mmol/L (136-145)
[2017-04-26 22:20] LABS: ALKALINE PHOSPHATASE 42 U/L (45-117); AST/SGOT 6 U/L (15-37); TOTAL PROTEIN 6.5 gm/dl (6.4-8.2)
[2017-04-26 22:47] LABS: BASO % 0.7 %; BASO ABS # 0.05 K/uL (0-0.2); EOS % 0.9 %; EOS ABS # 0.06 K/uL (0-0.5); IG# 0.02 K/uL (0.00-0.02); LYMPH % 11.6 %; LYMPH ABS # 0.81 K/uL (1.2-3.4); MONO % 17.1 %; NEUT % 69.4 %; NEUT ABS # 4.86 K/uL (1.4-6.5)
[2017-04-27] MEDS ORDERED: METHYLPREDNISOLONE 125 MG VIAL IV STA (00:14)
--- NOTE | 2017-04-27 00:45 | EMERGENCY ROOM VISIT NOTE ---
History Report prepared by Alfonso: Carlotta Gomez Under the Supervision of: Dr. Ranjan Elaine M.D. First contact with patient: 20:53 Chief Complaint: GI ASSESSMENT Stated Complaint: ULCERATIVE COLITIS, PROCTITIS FLARE UP Nursing Triage Summary: pt ambulated to triage reports " I have a hx of colitis and am having a flare up X 2 weeks I am on suppositories and this is not helping" c/o of abdominal pain and cramping pain has increased 1 wee ago History of Present Illness The patient is a 22 year old male who presents to the Emergency Room for a GI Assessment. The patient states that he has ulcerative colitis and this feels like a flare up. He states that he was here four days ago for the same thing. He reports that he has had the pain for a week. He states that his GI doctor gave him suppositories to use, but they have offered no relief. He notes that he has been using them for two weeks. The patient states that anytime he tries to use the restroom, his rectum swells up and he gets nothing out. He states that it becomes very painful and notes that he once felt it possibly prolapse. The patient states that he has not been eating and is barley able to keep fluids down. He states that anytime he uses the restroom and it acts up, he becomes nauseous and vomits. He notes that he had tactile fevers intermittently for the past few days and that he had chills when he was at home. The patient complains of diarrhea. He states the stools are very liquidy. The patient denies hematochezia. The patient states that in February when everything was inflamed he was put on IV steroids and pain medication. He reports that he was admitted 2-3 days. The patient states that this time feels similar to that time. The patient denies ever having a bowel obstruction and abdominal surgery. The patient denies being on steroids currently, but notes that he takes Remicade. Source of History: patient Onset: a week ago Position: other (anus) Symptom Intensity: severe Quality: other (similar to past flare ups of ulcerative colitis) Timing: worsening Associated Symptoms: + fevers, + chills, + nausea, + vomiting, + diarrhea, No hematochezia Note: The patient complains of loss of appetite. Review of Systems See HPI for pertinent positives & negatives. A total of 10 systems reviewed and were otherwise negative. Past Medical & Surgical Medical Problems: (1) Colitis (2) Iron Deficiency Anemia Secondary To Blood Loss (Chronic) (3) Ulcerative Colitis, Unspecified With Rectal Bleeding Surgical Problems: (1) History of colonoscopy Family History FH: cancer Social History Smoking Status: Never Smoker Alcohol Use: none Drug Use: none Marital Status: single Housing Status: lives with family Occupation Status: employed Current/Historical Medications Scheduled Dicyclomine Hcl (Bentyl), 10 MG PO TID Hydrocortisone Acetate (Rectal (Anusol-Hc), 25 MG FL BID Infliximab (Remicade), Unknown Dose IV Q8WK Methotrexate (Methotrexate), 6 TAB PO WK Scheduled PRN Omeprazole (Prilosec), 40 MG PO DAILY PRN for GERD Ondasetron Odt (Zofran Odt), 4 MG SL Q6H PRN for Nausea Allergies Coded Allergies: No Known Allergies (Unverified , 04/22/17) Physical Exam Vital Signs Date Time Temp Pulse Resp B/P (MAP) Pulse Ox O2 Delivery O2 Flow Rate FiO2 04/26/17 23:36 96 16 110/63 97 Room Air 04/26/17 20:50 38.8 146 20 104/55 98 Room Air Physical Exam Constitutional: Vital signs reviewed. Eyes: Pupils are equal round reactive to light. Conjunctiva are noninjected. ENT: Pharynx is clear without erythema or exudate. Mucous membranes are moist. Neck supple without meningeal signs. Respiratory: Clear to auscultation bilaterally. Breath sounds are equal bilaterally. Cardiovascular: Regular rate and rhythm. No rubs or gallops. GI: Soft, nondistended. Suprapubic tenderness. No guarding. Bowel sounds are present. Musculoskeletal: No peripheral edema. No lower extremity tenderness. Integumentary: No cyanosis. Neurological: The patient is awake and alert. No focal deficits. Psychiatric: Mildly anxious appearing. Medical Decision & Procedures ER Provider Diagnostic Interpretation: Radiology results as stated below per my review and the radiologist's interpretation: CT ABDOMEN & PELVIS: Comparison: 10/10/2016 Wall thickening of the descending and rectosigmoid colon, suggestive of colitis. Consider inflammatory and infectious etiologies. No fluid collection or free air. Normal caliber appendix. No evidence of bowel obstruction. Small mesenteric and retroperitoneal lymph nodes. Additional incidental findings similar to prior study. Radiologist: Jacque Krishna M.D. Stdy ready at 23:29 and initial results transmitted at 00:09. Laboratory Results 04/26/17 21:45 Red Blood Count 4.19, Mean Corpuscular Volume 75.9, Mean Corpuscular Hemoglobin 22.0, Mean Corpuscular Hemoglobin Concent 28.9, Mean Platelet Volume 8.7, Neutrophils (%) (Auto) 69.4, Lymphocytes (%) (Auto) 11.6, Monocytes (%) (Auto) 17.1, Eosinophils (%) (Auto) 0.9, Basophils (%) (Auto) 0.7, Neutrophils # (Auto ) 4.86, Lymphocytes # (Auto) 0.81, Monocytes # (Auto) 1.20, Eosinophils # (Auto ) 0.06, Basophils # (Auto) 0.05 04/26/17 21:45 Test 04/26/17 21:45 White Blood Count 7.00 K/uL (4.8-10.8) Red Blood Count 4.19 M/uL (4.7-6.1) Hemoglobin 9.2 g/dL (14.0-18.0) Hematocrit 31.8 % (42-52) Mean Corpuscular Volume 75.9 fL (80-100) Mean Corpuscular Hemoglobin 22.0 pg (25-34) Mean Corpuscular Hemoglobin Concent 28.9 g/dl (32-36) Platelet Count 369 K/uL (130-400) Mean Platelet Volume 8.7 fL (7.4-10.4) Neutrophils (%) (Auto) 69.4 % Lymphocytes (%) (Auto) 11.6 % Monocytes (%) (Auto) 17.1 % Eosinophils (%) (Auto) 0.9 % Basophils (%) (Auto) 0.7 % Neutrophils # (Auto) 4.86 K/uL (1.4-6.5) Lymphocytes # (Auto) 0.81 K/uL (1.2-3.4) Monocytes # (Auto) 1.20 K/uL (0.11-0.59) Eosinophils # (Auto) 0.06 K/uL (0-0.5) Basophils # (Auto) 0.05 K/uL (0-0.2) RDW Standard Deviation 49.0 fL (36.4-46.3) RDW Coefficient of Variation 17.9 % (11.5-14.5) Immature Granulocyte % (Auto) 0.3 % Immature Granulocyte # (Auto) 0.02 K/uL (0.00-0.02) Dohle Bodies 1+ Polychromasia 1+ Hypochromasia PRESENT Microcytosis PRESENT Tear Drop Cells OCCASIONAL Ovalocytes 1+ Anion Gap 6.0 mmol/L (3-11) Est Creatinine Clear Calc Drug Dose 136.7 ml/min Estimated GFR () 127.7 Estimated GFR (Non- 110.2 BUN/Creatinine Ratio 4.6 (10-20) Calcium Level 8.1 mg/dl (8.5-10.1) Total Bilirubin 0.3 mg/dl (0.2-1) Direct Bilirubin < 0.1 mg/dl (0-0.2) Aspartate Amino Transf (AST/SGOT) 6 U/L (15-37) Alanine Aminotransferase (ALT/SGPT) 12 U/L (12-78) Alkaline Phosphatase 42 U/L (45-117) Total Protein 6.5 gm/dl (6.4-8.2) Albumin 2.7 gm/dl (3.4-5.0) Lipase 122 U/L (73-393) Laboratory results as reviewed by me. Medications Administered Medications (Trade) Dose Ordered Sig/Terri Route Start Time Stop Time Status Last Admin Dose Admin Morphine Sulfate (MoRPHine SULFATE INJ) 4 mg ONE STAT IV 04/26/17 21:04 04/26/17 21:05 DC 04/26/17 21:25 4 MG Ondansetron HCl (Zofran Inj) 4 mg NOW STAT IV 04/26/17 21:04 04/26/17 21:05 DC 04/26/17 21:25 4 MG ED Course 2056: The patient was evaluated in room B9. A complete history and physical exam was performed. 2103: Ordered Zofran Inj 4 mg IV, Morphine Sulfate 4 mg IV. 2301: I reevaluated the patient and discussed his lab test results. He is doing better. He is waiting for CT. 10: I reevaluated the patient and updated him on his CT results. 4: Ordered Solu-Medrol IV 60 mg IV. []: I spoke with Dr. Dr. Packer. We discussed the patient and his results. The patient will be further evaluated by Dr. Packer. Medical Decision This is a 22-year-old male who presents with abdominal pain. Differential diagnosis includes ulcerative colitis flare, fecal impaction, proctitis, bowel obstruction, constipation, ileus. I did perform a limited focused review of portions of the patient's old chart on the electronic medical record. The patient was here four days ago for abdominal pain. He was treated with Morphine and discharged to follow up [facility]. At the time, his Hemoglobin was 9.3. On March [address] a [address] of his abdomen and pelvis that showed moderate to severe wall thickening in the colon extending from the hepatic flexure to the rectum. I did evaluate the patient as noted above. He is presenting with what he feels to be an exacerbation of his ulcerative colitis. IV access was established. I did treat patient with IV Zofran and morphine. I did order and review the patient's blood work as noted in the electronic medical record. His white blood cell count is not elevated. He does have chronic anemia. I did order a CT of the abdomen and pelvis. I did review the images myself as well as the radiology report as described above. He does appear to have colitis of the descending and rectosigmoid colon. I did reevaluate the patient. He states that he does not feel he can go home. He states that he feels like he did in February and he responded well to IV steroids at that time. He is not able to eat at home. I did treat him with Solu-Medrol 60 mg IV. I did discuss case with the hospitalist and residential case manager. Medication Reconcilliation Current Medication List: was personally reviewed by me Blood Pressure Screening Patient's blood pressure: Normal blood pressure Blood pressure disposition: Did not require urgent referral Consults Time Called: 0013 Consulting Physician: Dr. Packer- Hospitalist I spoke with Dr. Dr. Packer. We discussed the patient and his results. The patient will be further evaluated by Dr. Packer. Impression Primary Impression: Ulcerative colitis Additional Impression: Anemia Scribe Attestation The scribe's documentation has been prepared under my direct and personally reviewed by me in its entirety. I confirm that the note above accurately reflects all work, treatment, procedures, and medical decision making performed by me. Departure Information Dispostion Being Evaluated By Hospitalist Referrals Gissel Weber C.R.[email or web address] (PCP) Patient Instructions My [facility] Problem Qualifiers Primary Impression: Ulcerative colitis Ulcerative colitis location: other ulcerative colitis Digestive disease complication type: without complication Qualified Codes: K51.80 - Other ulcerative colitis without complications Additional Impression: Anemia Anemia type: unspecified type Qualified Codes: D64.9 - Anemia, unspecified
--- NOTE | 2017-04-27 01:46 | History and Physical ---
History & Physical Date & Time of Service: Apr 27, 2017 at 01:45 Chief Complaint: Ulcerative Colitis, Proctitis Flare Up Primary Care Physician: Gissel Weber C.R.N.P. History of Present Illness Source: patient, parent, clinic records, hospital records This is a 22 yo M h/o Ulcerative Colitis patient of Dr. Rice, presenting with abdominal pain. He was initially diagnosed 2 years go and initially treated with Mesalamine, Humira neither of which significantly improved his symptoms. He was subsequently started on Remicade and Methotrexate, which he remains on currently. He was recently admitted to [facility] 03/10-03/12 for abdominal pain . He was given Zosyn IV q6hrs, Solu-Medrol 60 mg IV q6 hrs and discharged on Prednisone. He finished prednisone last Friday. Currently, he feels 2 wks h/o generalized Abdominal discomfort of lower abdomen (9/10) although improved to 7 /10 while IN ED.He also reports rectal pain, swelling of rectum in addition to fever, chills, N/V, Diarrhea w/o hematochezia. hasn't been taking methotrexate since 3 days ago. His last Remicade dose was last dose , which he receives q8wks at [facility] cancer center. IN the ED, he arrived with temperature of 38.8, Tachycardia, White CT 7. Lipase 122, AST ALT Bili wnl. He received IV Solumedrol 60 mg, Morphine 4 mg, and Zofran Past Medical/Surgical History Past Medical History: 1. Ulcerative colitis 2. Varicella 3. Ingrown toenail 4. Acute pancreatitis Past Surgical History: 1. T&A 2. Toe nail surgery 3. Complete colonoscopy 4. Oral tooth extraction Family History FH: cancer Social History Smoking Status: Never Smoker Smokeless Tobacco Use: No Alcohol Use: none Drug Use: none Marital Status: single Occupational Status: employed Immunizations History of Influenza Vaccine: Unknown History of Tetanus Vaccine?: Unknown History of Pneumococcal: Unknown History of Hepatitis B Vaccine: Unknown Multi-Drug Resistant Organisms History of MDRO: No Allergies Coded Allergies: No Known Allergies (Unverified , 04/22/17) Home Medications Scheduled Dicyclomine Hcl (Bentyl), 10 MG PO TID Hydrocortisone Acetate (Rectal (Anusol-Hc), 25 MG [place] BID Infliximab (Remicade), Unknown Dose IV Q8WK Methotrexate (Methotrexate), 6 TAB PO WK Scheduled PRN Omeprazole (Prilosec), 40 MG PO DAILY PRN for GERD Ondasetron Odt (Zofran Odt), 4 MG SL Q6H PRN for Nausea Review of Systems Constitutional: + fever, + chills, No weakness Respiratory: No cough, No shortness of breath Abdomen: + pain, + nausea, + vomiting Genitourinary - Male: No hematuria, No urinary frequency, No urinary urgency Integumentary: No rash, No itch Physical Exam Vital Signs Date Time Temp Pulse Resp B/P (MAP) Pulse Ox O2 Delivery O2 Flow Rate FiO2 04/27/17 00:50 107 20 110/66 98 Room Air 04/26/17 23:36 96 16 110/63 97 Room Air 04/26/17 20:50 38.8 146 20 104/55 98 Room Air GENERAL: alert, no distress EYE EXAM: normal conjunctiva, PERRL and EOM's grossly intact OROPHARYNX: no exudate, no erythema, lips, buccal mucosa, and tongue normal and mucous membranes are moist NECK: supple, no nuchal rigidity, no adenopathy, non-tender LUNGS: Clear to auscultation. Normal chest wall mechanics HEART: no murmurs, S1 normal and S2 normal ABDOMEN: abdomen soft, diffuse Tenderness to palpation , non-distended ,normo- active bowel sounds, no masses, no rebound or guarding. LOWER EXTREMITIES: No pitting edema. NEURO EXAM: Normal sensorium, cranial nerves II-XII grossly intact, normal speech Diagnostics Laboratory Results Results Past 24 Hours Test 04/26/17 21:45 04/27/17 00:50 Range/Units White Blood Count 7.00 4.8-10.8 K/uL Red Blood Count 4.19 4.7-6.1 M/uL Hemoglobin 9.2 14.0-18.0 g/dL Hematocrit 31.8 42-52 % Mean Corpuscular Volume 75.9 80-100 fL Mean Corpuscular Hemoglobin 22.0 25-34 pg Mean Corpuscular Hemoglobin Concent 28.9 32-36 g/dl Platelet Count 369 130-400 K/uL Mean Platelet Volume 8.7 7.4-10.4 fL Neutrophils (%) (Auto) 69.4 % Lymphocytes (%) (Auto) 11.6 % Monocytes (%) (Auto) 17.1 % Eosinophils (%) (Auto) 0.9 % Basophils (%) (Auto) 0.7 % Neutrophils # (Auto) 4.86 1.4-6.5 K/uL Lymphocytes # (Auto) 0.81 1.2-3.4 K/uL Monocytes # (Auto) 1.20 0.11-0.59 K/uL Eosinophils # (Auto) 0.06 0-0.5 K/uL Basophils # (Auto) 0.05 0-0.2 K/uL RDW Standard Deviation 49.0 36.4-46.3 fL RDW Coefficient of Variation 17.9 11.5-14.5 % Immature Granulocyte % (Auto) 0.3 % Immature Granulocyte # (Auto) 0.02 0.00-0.02 K/uL Dohle Bodies 1+ Polychromasia 1+ Hypochromasia PRESENT Microcytosis PRESENT Tear Drop Cells OCCASIONAL Ovalocytes 1+ Sodium Level 138 136-145 mmol/L Potassium Level 3.5 3.5-5.1 mmol/L Chloride Level 104 98-107 mmol/L Carbon Dioxide Level 28 21-32 mmol/L Anion Gap 6.0 3-11 mmol/L Blood Urea Nitrogen 4 7-18 mg/dl Creatinine 0.96 0.60-1.40 mg/dl Est Creatinine Clear Calc Drug Dose 136.7 ml/min Estimated GFR () 127.7 Estimated GFR (Non- 110.2 BUN/Creatinine Ratio 4.6 10-20 Random Glucose 106 70-99 mg/dl Calcium Level 8.1 8.5-10.1 mg/dl Total Bilirubin 0.3 0.2-1 mg/dl Direct Bilirubin < 0.1 0-0.2 mg/dl Aspartate Amino Transf (AST/SGOT) 6 15-37 U/L Alanine Aminotransferase (ALT/SGPT) 12 12-78 U/L Alkaline Phosphatase 42 45-117 U/L Total Protein 6.5 6.4-8.2 gm/dl Albumin 2.7 3.4-5.0 gm/dl Lipase 122 73-393 U/L Urine Color YELLOW Urine Appearance CLOUDY CLEAR Urine pH 7.5 4.5-7.5 Urine Specific Blair 1.005 1.000-1.030 Urine Protein NEG NEG Urine Glucose (UA) NEG NEG Urine Ketones NEG NEG Urine Occult Blood NEG NEG Urine Nitrite NEG NEG Urine Bilirubin NEG NEG Urine Urobilinogen NEG NEG Urine Leukocyte Esterase NEG NEG Urine WBC (Auto) 0-5 /hpf Urine RBC (Auto) 0-4 /hpf Urine Hyaline Casts (Auto) 0-5 /lpf Urine Epithelial Cells (Auto) 0-5 /lpf Urine Bacteria (Auto) NEG Diagnostic Radiology ABD/PELVIS IV AND ORAL CONT CT DOSE: 395.32 mGy.cm HISTORY: Pain. Edema. Proctitis. eval for obstruction TECHNIQUE: Multiaxial CT images of the abdomen and pelvis were performed following the use of intravenous and oral contrast. A dose lowering technique was utilized adhering to the principles of ALARA. COMPARISON STUDY: 03/10/2017 FINDINGS: Lung bases are clear. Moderate wall thickening of the rectosigmoid colon consistent with a nonspecific colitis. Mild pericolonic infiltrative change. No evidence for abscess collection or obstructive process. no evidence for free air. The appendix is normal. IMPRESSION: 1. Moderate wall thickening/edema of the rectosigmoid with mild pericolonic infiltrative change. 2. This appearance suggests a nonspecific colitis/proctitis. 3. No evidence for abscess collection or obstruction. Impression Assessment and Plan 22 yo M w/ h/o of Ulcerative Colitis refractory to Humira, Mesalamine, currently on Remicade, Methotrexate , recently having finished prednisone taper from previous admission for UC flare, presenting with abdominal pain, diarrhea , fever. Abdominal Pain, diarrhea -Admit to Med/Surg -likely secondary to Ulcerative Colitis flare -R/O other stool infectious causes with Stool cx, C Diff toxin - Start IV Solumedrol 60 mg q6H -Start empiric coverage with Zosyn IV -F/u stool cx -Pain Control: PRN Morphine - PRN Zofran for Nausea -Full Liquid diet, Advance as tolerated -Consult Gastroenterology DVT Prophylaxis -SCD's Attending addendum: I have physically seen this patient, have supervised the medical residents activities, and agree with the H&P unless as otherwise noted. Assessment and Plan: Acute ulcerative colitis flare/rectosigmoid proctitis-- Admitted to the medical surgical floor Send stool for culture and C. difficile Full liquid diet advance as tolerated Solu-Medrol 60 mg IV every 6 hours Zosyn 4.5 g IV every 8 hours Zofran 4 mg IV every 6 hours when necessary Consult Dr. Rice from gastroenterology Level of Care Med/Surg Advanced Directives Existing Advance Directive: No Existing Living Will: No Existing Power of Math And Science Instructor: No Resuscitation Status FULL RESUSCITATION VTE Prophylaxis VTE Risk Assessment Done? Y/N: Yes Risk Level: Very Low Given or contraindicated: SCD's
[2017-04-27] MEDS ORDERED: MAGNESIUM HYDROXIDE SUSP 30 ML UDC PO PRN (02:00)
[2017-04-27] MEDS ORDERED: ONDANSETRON INJ 2 MG/ML 2 ML VIAL IV PRN (02:00)
[2017-04-27] MEDS ORDERED: ACETAMINOPHEN 325 MG TAB PO PRN (02:00)
[2017-04-27] MEDS ORDERED: MoRPHine SULFATE 2 MG/ML CARP IV PRN (02:00)
[2017-04-27] MEDS ORDERED: PIPERACILL/TAZOBAC CONSULT ACTIVE PRN (02:30)
[2017-04-27 03:00] VITALS: BP 117/65; PULSE 124; TEMP 39.3; O2SAT 100
--- NOTE | 2017-04-27 03:00 | NUR ---
A NOTE: Patient arrived to the floor at this time. He is alert and oriented x4 and is ambulating independently. Patient has been oriented to the room at this time. Admission nursing assessment/assessment manager have been completed; please refer to the admission assessment for further details. Patient signed both the fall agreement and code word papers. Call fernandez and bedside table are within reach; he has been encouraged to ring for assistance. Will continue to monitor.
[2017-04-27] MEDS: HYDROCODONE/ACETAMIN 5/325MG TAB PO PRN ×2 (03:12→13:15)
[2017-04-27] MEDS ORDERED: PIPERACILL/TAZOBAC IV 3.375 GM in DEXTROSE 5% 100ML IV ONE (03:15)
[2017-04-27 04:46] VITALS: TEMP 38.5
--- NOTE | 2017-04-27 05:31 | DIAGNOSTIC IMAGING REPORT ---
ABD/PELVIS IV AND ORAL CONT CT DOSE: 395.32 mGy.cm HISTORY: Pain. Edema. Proctitis. eval for obstruction TECHNIQUE: Multiaxial CT images of the abdomen and pelvis were performed following the use of intravenous and oral contrast. A dose lowering technique was utilized adhering to the principles of ALARA. COMPARISON STUDY: 03/10/2017 FINDINGS: Lung bases are clear. Moderate wall thickening of the rectosigmoid colon consistent with a nonspecific colitis. Mild pericolonic infiltrative change. No evidence for abscess collection or obstructive process. no evidence for free air. The appendix is normal. IMPRESSION: 1. Moderate wall thickening/edema of the rectosigmoid with mild pericolonic infiltrative change. 2. This appearance suggests a nonspecific colitis/proctitis. 3. No evidence for abscess collection or obstruction. The above report was generated using voice recognition software. It may contain grammatical, syntax or spelling errors. Electronically signed by: Maynor Chandler M.D. 04/27/2017 5:29 AM Dictated Date/Time: 04/27/2017 5:26 AM
[2017-04-27] MEDS: METHYLPREDNISOLONE IV 60 MG in SYRINGE 0 ML IV SCH ×4 (06:03→23:35)
[2017-04-27 07:37] VITALS: BP 90/54; PULSE 81; TEMP 36.9; O2SAT 97
[2017-04-27] MEDS: LACTOBACILLUS ACIDOPHILUS (FLORANEX) TAB PO SCH ×3 (08:28→18:13)
--- NOTE | 2017-04-27 08:30 | NUR ---
Case Management Note- Received consult for discharge planning. Met with patient at bedside. Patient alert & oriented. He states he lives with his parents in a 1 story house with [address] He drives and is independent with all activity. Role of family caseworker explained. Patient plans to return home at D/C and denies any needs. Will continue to follow.
[2017-04-27] MEDS: PIPERACILL/TAZOBAC IV 3.375 GM in DEXTROSE 5% 100ML 100 ML IV SCH ×2 (09:47→18:14)
--- NOTE | 2017-04-27 10:39 | Family Medicine Progress Note ---
Progress Note Date of Service Apr 27, 2017. Subjective Pt evaluation today including: conversation w/ patient, physical exam, chart review, lab review Pain: controlled PO Intake: advancing as tolerated Voiding: no voiding problems Pt reports frequent watery stools. Resting comfortably in bed when I entered the room. Hard to assess patient's knowledge of his illness, seems to also have had issues with insurance reimbursing his medications and so has been on only intermittent steroids PO for at least 3 months now. Pt reports that 2 weeks ago , he started having active symptoms again of loose stools and rectal pain, and his GI doc gave him steroids, but apparently woud not refill as of a few days ago - pt thinks this is the cause of why he is in the hospital now. His diet he tries to avoid fatty, spicy foods and sodas. Does not smoke or drink or abuse drugs. 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 Pt states that with his proctititis symptoms, he's also felt weakness like he's "just run a mile". Denies syncope or chest pain. Says he thinks all the fluids are causing his diarrhea too and that he wants to try and eat solid foods to see if his proctitis is better. As I was leaving, a tray with scrambled eggs and toast was dropped off. I mentioned to him that he may want to hold off on eating that, but that I would let him decide that for himself. Medications Current Inpatient Medications Medications (Trade) Dose Ordered Sig/Terri Route Start Time Stop Time Status Last Admin Dose Admin Ioversol (Optiray 320) 100 ml UD PRN IV 04/26/17 21:15 04/30/17 21:14 Acetaminophen (Tylenol Tab) 650 mg Q4H PRN PO 04/27/17 02:00 05/27/17 01:59 Al Hydrox/Mg Hydrox/Simethicone (Maalox Max Susp) 15 ml Q4H PRN PO 04/27/17 02:00 05/27/17 01:59 Magnesium Hydroxide (Milk Of Magnesia Susp) 30 ml Q6H PRN PO 04/27/17 02:00 05/27/17 01:59 Ondansetron HCl (Zofran Inj) 4 mg Q6H PRN IV 04/27/17 02:00 05/27/17 01:59 Morphine Sulfate (MoRPHine SULFATE INJ) 2 mg Q2H PRN IV 04/27/17 02:00 05/11/17 01:59 Acetaminophen/ Hydrocodone Bitart ([place] 5/325 Tab) 1 tab Q4H PRN PO 04/27/17 02:00 05/11/17 01:59 04/27/17 03:12 1 TAB Piperacillin Sod/ Tazobactam Sod 3.375 gm/Dextrose 115 ml @ 28.75 mls/ hr Q8H IV 04/27/17 10:00 05/07/17 09:59 04/27/17 09:47 28.75 MLS/HR Lactobacillus Acidophilus (Floranex Tab) 4 tab TIDM PO 04/27/17 08:00 05/27/17 07:59 04/27/17 08:28 4 TAB Methylprednisolone Sodium Succinate 60 mg/Syringe 0.96 ml @ 1.5 mls/min Q6 IV 04/27/17 06:00 05/27/17 05:59 04/27/17 06:03 1.5 MLS/MIN Piperacillin Sod/ Tazobactam Sod (Consult) 1 ea UD PRN N/A 04/27/17 02:30 05/27/17 02:29 Metronidazole 500 mg/Prmx 100 ml @ 100 mls/hr Q8H IV 04/27/17 09:00 05/07/17 08:59 UNV Objective Physical Exam General Appearance: WD/WN, no apparent distress Eyes: normal inspection ENT: hearing grossly normal Respiratory/Chest: lungs clear, normal breath sounds, no respiratory distress Cardiovascular: regular rate, rhythm, no gallop, no murmur Abdomen: normal bowel sounds, soft, + pertinent finding (moderately tender in lower quadrant. Neg for guarding.) Neurologic/Psychiatric: alert, normal mood/affect, oriented x 3 Skin: normal color, warm/dry Laboratory Results Test 04/26/17 21:45 04/27/17 00:50 04/27/17 10:30 RDW Standard Deviation 49.0 fL (36.4-46.3) RDW Coefficient of Variation 17.9 % (11.5-14.5) White Blood Count 7.00 K/uL (4.8-10.8) Red Blood Count 4.19 M/uL (4.7-6.1) Hemoglobin 9.2 g/dL (14.0-18.0) Hematocrit 31.8 % (42-52) Mean Corpuscular Volume 75.9 fL (80-100) Mean Corpuscular Hemoglobin 22.0 pg (25-34) Mean Corpuscular Hemoglobin Concent 28.9 g/dl (32-36) Platelet Count 369 K/uL (130-400) Mean Platelet Volume 8.7 fL (7.4-10.4) Neutrophils (%) (Auto) 69.4 % Lymphocytes (%) (Auto) 11.6 % Monocytes (%) (Auto) 17.1 % Eosinophils (%) (Auto) 0.9 % Basophils (%) (Auto) 0.7 % Neutrophils # (Auto) 4.86 K/uL (1.4-6.5) Lymphocytes # (Auto) 0.81 K/uL (1.2-3.4) Monocytes # (Auto) 1.20 K/uL (0.11-0.59) Eosinophils # (Auto) 0.06 K/uL (0-0.5) Basophils # (Auto) 0.05 K/uL (0-0.2) Immature Granulocyte % (Auto) 0.3 % Immature Granulocyte # (Auto) 0.02 K/uL (0.00-0.02) Dohle Bodies 1+ Polychromasia 1+ Hypochromasia PRESENT Microcytosis PRESENT Tear Drop Cells OCCASIONAL Ovalocytes 1+ Est Creatinine Clear Calc Drug Dose 136.7 ml/min Total Bilirubin 0.3 mg/dl (0.2-1) Direct Bilirubin < 0.1 mg/dl (0-0.2) Aspartate Amino Transf (AST/SGOT) 6 U/L (15-37) Alanine Aminotransferase (ALT/SGPT) 12 U/L (12-78) Alkaline Phosphatase 42 U/L (45-117) Total Protein 6.5 gm/dl (6.4-8.2) Albumin 2.7 gm/dl (3.4-5.0) Lipase 122 U/L (73-393) Urine Color YELLOW Urine Appearance CLOUDY (CLEAR) Urine pH 7.5 (4.5-7.5) Urine Specific [place] 1.005 (1.000-1.030) Urine Protein NEG (NEG) Urine Glucose (UA) NEG (NEG) Urine Ketones NEG (NEG) Urine Occult Blood NEG (NEG) Urine Nitrite NEG (NEG) Urine Bilirubin NEG (NEG) Urine Urobilinogen NEG (NEG) Urine Leukocyte Esterase NEG (NEG) Urine WBC (Auto) /hpf (0-5) Urine RBC (Auto) /hpf (0-4) Urine Hyaline Casts (Auto) /lpf (0-5) Urine Epithelial Cells (Auto) /lpf (0-5) Urine Bacteria (Auto) (NEG) Urine RBC 0-4 /hpf (0-4) Urine WBC 1-5 /hpf (0-5) Urine Epithelial Cells 5-10 /lpf (0-5) Urine Bacteria NEG (NEG) Date/Time Source Procedure Growth Status 04/27/17 04:10 Stool C.difficile Toxin B Gene (PCR) - Final No C. difficile toxin B gene detected Complete Assessment and Plan Mr. Nobles is a 22 year old male admitted for proctitis and rectal pain, presumably from an ulcerative colitis flare. Abdominal pain with diarrhea tachycardia and fever - no longer febrile - persistent watery stools, advance diet as tolerating, ate eggs and toast for breakfast and seemed to tolerate well so far. Will continue to advance, and revert to liquids if worsens. - C diff negative so far. Other stool cx's pending, also added testing for rotavirus. Appreciate GI recs - continue IV zosyn and flagyl, reassess pending cultures tomorrow - continue Methylpred 60 IV q6. Will need a tapered PO dose on discharge. - Adding Rowasa (mesalamine) enema qpm per GI recs Code status: full DVT ppx: SCD's Dispo: medical floor I agree with resident assessment and plan and have seen and examined pt myself Resting comfortably in bed VSS Labs reviewed Abd pain resolving Likely UC flare GI consult appreciated Cont antibx and IV steroids Start on Rowasa enema qHS per GI Cont to monitor Continued [facility] stay due to: multiple IV medications needed Resident Tracking Resident Involvement: Resident Care Provided Care Provided: Adult Hospital Medicine
[2017-04-27 11:25] LABS: HEMATOCRIT 32.2 % (42-52); HEMOGLOBIN 9.3 g/dL (14.0-18.0); MEAN CELL VOLUME 75.8 fL (80-100); MEAN CORPUSCULAR HEMOGLOBIN 21.9 pg (25-34); MEAN CORPUSCULAR HGB CONC 28.9 g/dl (32-36); MEAN PLATELET VOLUME 8.5 fL (7.4-10.4); PLATELET COUNT 407 K/uL (130-400); RED CELL DISTRIBUTION WIDTH SD 48.8 fL (36.4-46.3); WHITE BLOOD COUNT 7.47 K/uL (4.8-10.8)
--- NOTE | 2017-04-27 11:33 | Gastrointestinal Consultation ---
Gastrointestinal Consultation Date of Consultation: Apr 27, 2017 Attending Physician: Dr. Packer Consulting Physician: Dr. Lees Reason for Consultation: UC History of Present Illness Patient is a 22 year old male with ulcerative colitis who is followed by Dr. Rice. He was hospitalized last month with a flare of severe left sided UC. He has apparently been on a variety of medications including mesalamine, Humira and Remicade and MTX. There have been some issues with insurance coverage and it is unclear what he has actually been taking other than recent prednisone taper. Last remicade reported as 03/24.He was in the hospital 03/10-03/12 and was treated with antibiotics, IV steroids and ultimately discharge don a prednisone taper. He finished this about 2 weeks ago and over the last week has had worsening fatigue, diarrhea and abdominal pain and fevers and chills. On arrival in the Er he was febrile to 38.8, tachycardic. He was given IV steroids as well as pain medication. Also started on Zosyn and flagyl. C diff is negative. Stool cultures are otherwise pending. his last colonoscopy was in December and showed significant left sided inflammation. He was in the process of being referred to an IBD specialty clinic at a tertiary care center. Still having watery diarrhea today. Less abd pain. Hungry. CT shows rectosigmoid colon wall thickening. Temp overnight 39.3. Afebrile this AM. Past Medical/Surgical History Medical Problems: (1) Abdominal pain Status: Acute (2) Anemia Status: Acute (3) Dehydration Status: Acute (4) Pancreatitis Status: Acute (5) Ulcerative colitis Status: Acute (6) Ulcerative colitis with rectal bleeding Status: Acute (7) Vomiting Status: Acute Past Medical History: as noted above Past Surgical History: none Family History FH: cancer Social History Smoking Status: Never Smoker Alcohol Use: none Drug Use: none Marital Status: single Housing Status: lives with family Occupation Status: employed Allergies Coded Allergies: No Known Allergies (Unverified , 04/22/17) Current Medications Home Meds and Scripts Medications Dose Route/Sig Max Daily Dose Days Date Category Dose Instructions Anusol-Hc (Hydrocortisone Acetate (Rectal) 25 Mg Sup 25 Mg ND BID 04/26/17 Reported Bentyl (Dicyclomine Hcl) 10 Mg Cap 10 Mg PO TID 04/26/17 Reported Zofran Odt (Ondansetron HCl) 4 Mg Tab 4 Mg SL Q6H PRN 04/26/17 Reported Remicade (Infliximab) 100 Mg/10 Ml Inj Unknown Dose IV Q8WK 04/22/17 Reported Methotrexate 2.5 Mg Tab 6 Tab PO WK 03/10/17 Reported ON THURSDAYS Prilosec (Omeprazole) 40 Mg Cap 40 Mg PO DAILY PRN 01/09/17 Reported Review of Systems 12 systems reviewed and negative except as noted Physical Exam Date Time Temp Pulse Resp B/P (MAP) Pulse Ox O2 Delivery O2 Flow Rate FiO2 04/27/17 08:00 Room Air 04/27/17 07:37 36.9 81 16 90/54 (66) 97 Room Air 04/27/17 04:46 38.5 04/27/17 03:00 39.3 124 18 117/65 100 Room Air 04/27/17 02:46 105 18 120/67 98 04/27/17 00:50 107 20 110/66 98 Room Air 04/26/17 23:36 96 16 110/63 97 Room Air 04/26/17 20:50 38.8 146 20 104/55 98 Room Air General Appearance: WD/WN, + mild distress Eyes: normal inspection ENT: normal ENT inspection, hearing grossly normal, pharynx normal Neck: supple, no JVD Respiratory/Chest: chest non-tender, lungs clear, normal breath sounds, no accessory muscle use Cardiovascular: regular rate, rhythm, no murmur Abdomen: normal bowel sounds, no pulsatile mass, + tenderness Extremities: normal range of motion, non-tender, no pedal edema 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, no motor/sensory deficits, alert, normal mood/affect, oriented x 3 Skin: normal color, no rash Laboratory Results Last 24 Hours Test 04/26/17 21:45 04/27/17 00:50 White Blood Count 7.00 K/uL Red Blood Count 4.19 M/uL Hemoglobin 9.2 g/dL Hematocrit 31.8 % Mean Corpuscular Volume 75.9 fL Mean Corpuscular Hemoglobin 22.0 pg Mean Corpuscular Hemoglobin Concent 28.9 g/dl Platelet Count 369 K/uL Mean Platelet Volume 8.7 fL Neutrophils (%) (Auto) 69.4 % Lymphocytes (%) (Auto) 11.6 % Monocytes (%) (Auto) 17.1 % Eosinophils (%) (Auto) 0.9 % Basophils (%) (Auto) 0.7 % Neutrophils # (Auto) 4.86 K/uL Lymphocytes # (Auto) 0.81 K/uL Monocytes # (Auto) 1.20 K/uL Eosinophils # (Auto) 0.06 K/uL Basophils # (Auto) 0.05 K/uL RDW Standard Deviation 49.0 fL RDW Coefficient of Variation 17.9 % Immature Granulocyte % (Auto) 0.3 % Immature Granulocyte # (Auto) 0.02 K/uL Dohle Bodies 1+ Polychromasia 1+ Hypochromasia PRESENT Microcytosis PRESENT Tear Drop Cells OCCASIONAL Ovalocytes 1+ Sodium Level 138 mmol/L Potassium Level 3.5 mmol/L Chloride Level 104 mmol/L Carbon Dioxide Level 28 mmol/L Anion Gap 6.0 mmol/L Blood Urea Nitrogen 4 mg/dl Creatinine 0.96 mg/dl Est Creatinine Clear Calc Drug Dose 136.7 ml/min Estimated GFR () 127.7 Estimated GFR (Non- 110.2 BUN/Creatinine Ratio 4.6 Random Glucose 106 mg/dl Calcium Level 8.1 mg/dl Total Bilirubin 0.3 mg/dl Direct Bilirubin < 0.1 mg/dl Aspartate Amino Transf (AST/SGOT) 6 U/L Alanine Aminotransferase (ALT/SGPT) 12 U/L Alkaline Phosphatase 42 U/L Total Protein 6.5 gm/dl Albumin 2.7 gm/dl Lipase 122 U/L Urine Color YELLOW Urine Appearance CLOUDY Urine pH 7.5 Urine Specific [place] 1.005 Urine Protein NEG Urine Glucose (UA) NEG Urine Ketones NEG Urine Occult Blood NEG Urine Nitrite NEG Urine Bilirubin NEG Urine Urobilinogen NEG Urine Leukocyte Esterase NEG Urine WBC (Auto) /hpf Urine RBC (Auto) /hpf Urine Hyaline Casts (Auto) /lpf Urine Epithelial Cells (Auto) /lpf Urine Bacteria (Auto) Urine RBC 0-4 /hpf Urine WBC 1-5 /hpf Urine Epithelial Cells 5-10 /lpf Urine Bacteria NEG Impression Patient is a 22 year old male with severe UC which has been refractory to medical therapy and difficult to treat over the last several months. Admitted with abd pain and diarrhea after completing steroid taper. C diff is negative. Plan - Await remainder of stool studies. Test for rotavirus as well please. - Continue with IV steroids and broad spectrum antibiotics. - IVF hydration. - Can add topical mesalamine therapy to regimen. Start rowasa enema QHS. - Bowel rest if worsening of symptoms with current diet.
[2017-04-27 12:06] LABS: CALCIUM 8.7 mg/dl (8.5-10.1); CREATININE 1.25 mg/dl (0.60-1.40)
[2017-04-27] MEDS: METRONIDAZOLE / NSS 500 MG in PREMIXED NSS 100 ML IV SCH ×2 (13:05→19:39)
[2017-04-27 15:17] VITALS: BP 101/62; PULSE 67; TEMP 36.8; O2SAT 97
[2017-04-27] MEDS: ALUMINUM/MAGNESIUM/SIMETH (MAALOX MAX) 30 ML UDC PO PRN (15:52)
[2017-04-27] MEDS ORDERED: HYDROmorphone INJ 1 MG/ML SYR IV ONE (16:15)
[2017-04-27] MEDS: ANUSOL SUPP 1 EA PR SCH ×2 (18:14→19:02)
--- NOTE | 2017-04-27 19:03 | NUR ---
a: per pharmacist (heike), non-admin anusol suppository scheduled for 2100 d/t previous dose timing/orders.
[2017-04-27] MEDS: MESALAMINE 4 GM/60 ML ENEMA BTL PR SCH (21:42)
[2017-04-27 22:51] VITALS: BP 124/71; PULSE 66; TEMP 36.7; O2SAT 98
[2017-04-27] MEDS: HYDROmorphone INJ 1 MG/ML SYR IV PRN (23:35)
[2017-04-28] MEDS: PIPERACILL/TAZOBAC IV 3.375 GM in DEXTROSE 5% 100ML 100 ML IV SCH ×3 (01:26→17:46)
[2017-04-28] MEDS: METRONIDAZOLE / NSS 500 MG in PREMIXED NSS 100 ML IV SCH ×3 (04:53→20:00)
--- NOTE | 2017-04-28 05:07 | NUR ---
ID NOTE: Patient is alert and oriented x4. VSS. Patient is tolerating a clear liquid diet at this time. He is OOB independently in the room. IV site is intact and patent. Pain is controlled with PRN pain medications per MD orders. Call fernandez and bedside table are within reach; he has been encouraged to ring for assistance. D/C uncertain at this time.
[2017-04-28] MEDS: METHYLPREDNISOLONE IV 60 MG in SYRINGE 0 ML IV SCH ×3 (05:29→21:31)
[2017-04-28 06:24] LABS: HEMATOCRIT 29.1 % (42-52); HEMOGLOBIN 8.4 g/dL (14.0-18.0); MEAN CELL VOLUME 75.8 fL (80-100); MEAN CORPUSCULAR HEMOGLOBIN 21.9 pg (25-34); MEAN CORPUSCULAR HGB CONC 28.9 g/dl (32-36); MEAN PLATELET VOLUME 8.6 fL (7.4-10.4); PLATELET COUNT 399 K/uL (130-400); RED CELL DISTRIBUTION WIDTH CV 17.8 % (11.5-14.5); RED CELL DISTRIBUTION WIDTH SD 48.8 fL (36.4-46.3); WHITE BLOOD COUNT 4.14 K/uL (4.8-10.8)
[2017-04-28 06:42] LABS: CALCIUM 8.4 mg/dl (8.5-10.1); CREATININE 0.96 mg/dl (0.60-1.40)
[2017-04-28 07:23] VITALS: BP 95/54; PULSE 66; TEMP 36.5; O2SAT 96
[2017-04-28] MEDS ORDERED: HYDROCODONE/ACETAMINOPHEN 7.5/325MG TAB PO PRN (08:45)
[2017-04-28] MEDS: LACTOBACILLUS ACIDOPHILUS (FLORANEX) TAB PO SCH ×3 (08:58→17:35)
[2017-04-28] MEDS: ANUSOL SUPP 1 EA PR SCH ×2 (08:59→20:07)
--- NOTE | 2017-04-28 13:44 | Hospitalist Progress Note ---
Hospitalist Progress Note Date of Service Apr 28, 2017. Subjective Pt evaluation today including: conversation w/ patient, physical exam, chart review, lab review, review of inpatient medication list Voiding: no voiding problems Mr. Nobles was sleeping when I entered the room and a bit drowsy but arouseable. He reports his pain is much improved though he continues to have loose, watery stools. ROS Constitutional: no chills, aches, sweats or fever Respiratory: no sob,cough, sputum, or wheezing Cardiac: no chest pain, palpitations, edema, orthopnea or lightheadedness GI: no abdominal pain, nausea, vomiting, diarrhea or constipation : no dysuria or hesitancy Extremities: no joint pain or weakness Skin: no rash All other systems reviewed and negative Medications Medications (Trade) Dose Ordered Sig/Terri Route Start Time Stop Time Status Last Admin Dose Admin Mesalamine (Rowasa Enema) 4 gm QPM MA 04/27/17 21:00 05/27/17 20:59 04/27/17 21:42 4 GM Hydromorphone HCl (Dilaudid Inj) 1 mg NOW ONCE IV 04/27/17 16:15 04/27/17 16:16 DC 04/27/17 16:17 1 MG Hydromorphone HCl (Dilaudid Inj) 1 mg Q2HWA PRN IV 04/27/17 18:15 05/11/17 18:14 04/27/17 23:35 1 MG Hard Fat/ Phenylephrine (Anusol Supp) 1 ea BID MA 04/27/17 18:00 05/27/17 17:59 04/28/17 08:59 1 EA Objective Vital Signs Date Time Temp Pulse Resp B/P (MAP) Pulse Ox O2 Delivery O2 Flow Rate FiO2 04/28/17 08:00 Room Air 04/28/17 07:23 36.5 66 16 95/54 (68) 96 Room Air 04/27/17 23:30 Room Air 04/27/17 22:51 36.7 66 18 124/71 (88) 98 Room Air 04/27/17 19:53 Room Air 04/27/17 15:40 Room Air 04/27/17 15:17 36.8 67 16 101/62 (75) 97 Room Air Physical Exam Notes: General: no distress Eyes: normal inspection, PERLL Respiratory: chest non tender, clear to auscultation, normal breath sounds, no respiratory distress, no accessory muscle use Cardiac: regular rate and rhythm, no rub or gallop, no murmur, no edema, no jvd GI/: active bowel sounds, no abd pain or tenderness, soft, non distended Extremities: normal range of motion, normal strength, non tender Neuro/Psych: alert and oriented x 3, normal mood and affect Skin: normal color, dry Laboratory Results Last 24 Hours Test 04/28/17 05:55 White Blood Count 4.14 K/uL Red Blood Count 3.84 M/uL Hemoglobin 8.4 g/dL Hematocrit 29.1 % Mean Corpuscular Volume 75.8 fL Mean Corpuscular Hemoglobin 21.9 pg Mean Corpuscular Hemoglobin Concent 28.9 g/dl RDW Standard Deviation 48.8 fL RDW Coefficient of Variation 17.8 % Platelet Count 399 K/uL Mean Platelet Volume 8.6 fL Sodium Level 137 mmol/L Potassium Level 4.0 mmol/L Chloride Level 103 mmol/L Carbon Dioxide Level 29 mmol/L Anion Gap 5.0 mmol/L Blood Urea Nitrogen 6 mg/dl Creatinine 0.96 mg/dl Est Creatinine Clear Calc Drug Dose 136.7 ml/min Estimated GFR () 127.7 Estimated GFR (Non- 110.2 BUN/Creatinine Ratio 5.8 Random Glucose 162 mg/dl Calcium Level 8.4 mg/dl Assessment and Plan Mr. Nobles is a 22 year old male admitted for proctitis and rectal pain, presumably from an ulcerative colitis flare. Acute Ulcerative Colitis flare - afebrile for over 24 hours, pain greatly reduced - continue clear liquid diet for now, may advance tomorrow morning if pain continues to improve and patient can tolerate - C diff negative, stool cultures negative - continue IV zosyn and flagyl given fever/tachycardia upon admission, flare may have infectious element - decrease Methylpred to 60 IV bid. Will need a tapered PO dose on discharge. - Continue Rowasa (mesalamine) enema qpm per GI recs - dilaudid, hydrocodone for pain - patient has not required pain medication since midnight Full code
[2017-04-28 15:11] VITALS: BP 102/54; PULSE 69; TEMP 36.6; O2SAT 96
[2017-04-28] MEDS: ALUMINUM/MAGNESIUM/SIMETH (MAALOX MAX) 30 ML UDC PO PRN (17:45)
[2017-04-28] MEDS: MESALAMINE 4 GM/60 ML ENEMA BTL PR SCH (21:43)
[2017-04-28] MEDS: HYDROmorphone INJ 1 MG/ML SYR IV PRN (21:44)
--- NOTE | 2017-04-28 22:41 | NUR ---
A: Pt. requested to administer his own enema. He relayed to me that he is going to hold off on doing it until he has a bowel movement. He states "it is about to happen." I let the pt. know that I will relay this to the next nurse. He is aware the medication is supposed to be retained as much as possible, and doesn't believe he will be able to hold it yet. Will pass on to follow up.
[2017-04-28 22:55] VITALS: BP 107/66; PULSE 61; TEMP 37; O2SAT 97
[2017-04-29] MEDS: PIPERACILL/TAZOBAC IV 3.375 GM in DEXTROSE 5% 100ML 100 ML IV SCH ×3 (01:46→18:00)
[2017-04-29] MEDS: HYDROmorphone INJ 1 MG/ML SYR IV PRN ×2 (04:21→07:45)
[2017-04-29] MEDS: METRONIDAZOLE / NSS 500 MG in PREMIXED NSS 100 ML IV SCH ×2 (04:21→12:26)
--- NOTE | 2017-04-29 05:45 | NUR ---
ID NOTE: Patient is alert and oriented x4. VSS. Patient is tolerating a clear liquid diet at this time; patient requested to be advanced to a low fiber diet; patient advanced to new diet at this time. He is OOB independently in the room. IV site is intact and patent; he is receiving IV antibiotics. Pain is controlled with PRN pain medications per MD orders. Call fernandez and bedside table are within reach; he has been encouraged to ring for assistance. D/C uncertain at this time.
[2017-04-29 07:01] VITALS: BP 106/64; PULSE 59; TEMP 36.6; O2SAT 98
[2017-04-29] MEDS: ANUSOL SUPP 1 EA PR SCH ×2 (08:30→18:00)
[2017-04-29] MEDS: ALUMINUM/MAGNESIUM/SIMETH (MAALOX MAX) 30 ML UDC PO PRN (09:40)
[2017-04-29] MEDS: LACTOBACILLUS ACIDOPHILUS (FLORANEX) TAB PO SCH ×3 (09:40→18:25)
[2017-04-29] MEDS: METHYLPREDNISOLONE IV 60 MG in SYRINGE 0 ML IV SCH (09:41)
[2017-04-29 09:44] LABS: HEMATOCRIT 29.8 % (42-52); HEMOGLOBIN 8.6 g/dL (14.0-18.0); MEAN CELL VOLUME 76.2 fL (80-100); MEAN CORPUSCULAR HGB CONC 28.9 g/dl (32-36); MEAN PLATELET VOLUME 8.8 fL (7.4-10.4); PLATELET COUNT 457 K/uL (130-400); RED CELL DISTRIBUTION WIDTH CV 17.8 % (11.5-14.5); RED CELL DISTRIBUTION WIDTH SD 49.3 fL (36.4-46.3); WHITE BLOOD COUNT 5.74 K/uL (4.8-10.8)
[2017-04-29 09:45] LABS: CALCIUM 8.2 mg/dl (8.5-10.1); CREATININE 0.85 mg/dl (0.60-1.40); POTASSIUM 4.2 mmol/L (3.5-5.1)
--- NOTE | 2017-04-29 11:20 | NUR ---
Reviewed chart. Pt is independent with ADL's. He plans to return home at discharge. Pt's family can help him at home. Case Management will follow.
--- NOTE | 2017-04-29 12:14 | Gastroenterology Progress Note ---
Progress Note Date of Service: Apr 29, 2017 Subjective Pt evaluation today including: conversation w/ patient, physical exam, chart review, lab review, review of studies, review of inpatient medication list Mr. Castaneda is a 22 yr old male with left sided UC, managed by Dr. Rice and Gissel Weber. He is on Remicade and rectal spasms and diarrhea restarted during a prednisone taper when decreased to 25mg prompting his admission. Pt tells me he is "much better." Currently on a full liquid diet. Review of Systems Constitutional: No fever ENT: No hearing loss Respiratory: No cough Cardiac: No chest pain Abdomen: + see HPI, + diarrhea, No pain Male : No dysuria Neuro: No memory loss Psych: No depression symptoms Endo: No fatigue Medications Current Inpatient Medications Medications (Trade) Dose Ordered Sig/Terri Route Start Time Stop Time Status Last Admin Dose Admin Ioversol (Optiray 320) 100 ml UD PRN IV 04/26/17 21:15 04/30/17 21:14 Acetaminophen (Tylenol Tab) 650 mg Q4H PRN PO 04/27/17 02:00 05/27/17 01:59 Al Hydrox/Mg Hydrox/Simethicone (Maalox Max Susp) 15 ml Q4H PRN PO 04/27/17 02:00 05/27/17 01:59 04/29/17 09:40 15 ML Magnesium Hydroxide (Milk Of Magnesia Susp) 30 ml Q6H PRN PO 04/27/17 02:00 05/27/17 01:59 Ondansetron HCl (Zofran Inj) 4 mg Q6H PRN IV 04/27/17 02:00 05/27/17 01:59 Morphine Sulfate (MoRPHine SULFATE INJ) 2 mg Q2H PRN IV 04/27/17 02:00 05/11/17 01:59 Future Hold 04/27/17 14:39 2 MG Acetaminophen/ Hydrocodone Bitart ([place] 5/325 Tab) 1 tab Q4H PRN PO 04/27/17 02:00 05/11/17 01:59 Future Hold 04/27/17 13:15 1 TAB Piperacillin Sod/ Tazobactam Sod 3.375 gm/Dextrose 115 ml @ 28.75 mls/ hr Q8H IV 04/27/17 10:00 05/07/17 09:59 04/29/17 10:26 28.75 MLS/HR Lactobacillus Acidophilus (Floranex Tab) 4 tab TIDM PO 04/27/17 08:00 05/27/17 07:59 04/29/17 09:40 4 TAB Piperacillin Sod/ Tazobactam Sod (Consult) 1 ea UD PRN N/A 04/27/17 02:30 05/27/17 02:29 Metronidazole 500 mg/Prmx 100 ml @ 100 mls/hr Q8H IV 04/27/17 12:00 05/07/17 11:59 04/29/17 04:21 100 MLS/HR Mesalamine (Rowasa Enema) 4 gm QPM DC 04/27/17 21:00 05/27/17 20:59 04/28/17 21:43 4 GM Hydromorphone HCl (Dilaudid Inj) 1 mg Q2HWA PRN IV 04/27/17 18:15 05/11/17 18:14 04/29/17 07:45 1 MG Acetaminophen/ Hydrocodone Bitart ([place] 7.5/325 Tab) 1 tab Q3HWA PRN PO 04/28/17 08:45 05/12/17 08:44 Methylprednisolone Sodium Succinate 60 mg/Syringe 0.96 ml @ 1.5 mls/min Q12H IV 04/28/17 22:00 05/28/17 21:59 04/29/17 09:41 1.5 MLS/MIN Hard Fat/ Phenylephrine (Anusol Supp) 1 ea BID@0700,1800 DC 04/28/17 20:00 05/28/17 19:59 04/29/17 08:30 1 EA Objective Vital Signs Date Time Temp Pulse Resp B/P (MAP) Pulse Ox O2 Delivery O2 Flow Rate FiO2 04/29/17 08:05 Room Air 04/29/17 07:01 36.6 59 16 106/64 (78) 98 Room Air 04/28/17 23:30 Room Air 04/28/17 22:55 37.0 61 18 107/66 (80) 97 Room Air 04/28/17 15:35 Room Air 04/28/17 15:11 36.6 69 18 102/54 (70) 96 Room Air Physical Exam General Appearance: no apparent distress Neck: no adenopathy, no JVD Respiratory/Chest: lungs clear Cardiovascular: regular rate, rhythm, no JVD, no murmur Abdomen: non tender, soft Extremities: non-tender, normal inspection Neurologic/Psych: alert, normal mood/affect, oriented x 3 Skin: no jaundice Laboratory Results Last 24 Hours Test 04/29/17 08:29 White Blood Count 5.74 K/uL Red Blood Count 3.91 M/uL Hemoglobin 8.6 g/dL Hematocrit 29.8 % Mean Corpuscular Volume 76.2 fL Mean Corpuscular Hemoglobin 22.0 pg Mean Corpuscular Hemoglobin Concent 28.9 g/dl RDW Standard Deviation 49.3 fL RDW Coefficient of Variation 17.8 % Platelet Count 457 K/uL Mean Platelet Volume 8.8 fL Sodium Level 137 mmol/L Potassium Level 4.2 mmol/L Chloride Level 103 mmol/L Carbon Dioxide Level 29 mmol/L Anion Gap 5.0 mmol/L Blood Urea Nitrogen 7 mg/dl Creatinine 0.85 mg/dl Est Creatinine Clear Calc Drug Dose 154.4 ml/min Estimated GFR () 141.3 Estimated GFR (Non- 122.0 BUN/Creatinine Ratio 8.0 Random Glucose 120 mg/dl Calcium Level 8.2 mg/dl Assessment and Plan Mr. Castaneda is a 22 yr old with moderately severe left sided UC. He is much improved, likely from the IV steroids and a new start of a mesalamine enema yesterday. Plan: 1. Agree with low fiber diet. 2. Would decrease IV steroid dose to 20mg Q 8 hrs as this is the maximum that we typically use. At the time of DC would prescribed 40mg daily until seen by Dr. Rice (pt tells me he has an appt later this week). 3. No clear indication for antibiotics in UC, consider stopping the Zosyn and Flagyl. 4. Continue the mesalamine enema QHS, even after discharge. I performed a history and physical examination of the patient. I have discussed the patient's case, impression and plan with RADHA Dawson. Her note reflects my findings and plan. Continue current treatment but start to lower steroid dose. Ghulam Costa MD
--- NOTE | 2017-04-29 13:19 | NUR ---
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
[2017-04-29 15:03] VITALS: BP 111/75; PULSE 59; TEMP 36.7; O2SAT 98
[2017-04-29] MEDS ORDERED: RWSE PR (15:04)
[2017-04-29] MEDS ORDERED: PRD20 PO (15:04)
[2017-04-29] MEDS ORDERED: HYDR-3983 PO (15:04)
--- NOTE | 2017-04-29 15:10 | Discharge Instructions ---
Discharge Instructions Date of Service Apr 29, 2017. Admission Reason for Admission: Ulcerative Colitis Discharge Discharge Diagnosis / Problem: Ulcerative colitis Discharge Goals Goal(s): Improve disease control Activity Recommendations Activity Limitations: resume your previous activity . Instructions / Follow-Up Instructions / Follow-Up Please keep your appointment with Dr. Rice on 05/01/17. Please continue mesalamine enemas and 40 mg daily prednisone until you see Dr. Rice and discuss their continued use. Current Hospital Diet Patient's current hospital diet: Low Fiber Diet Discharge Diet Recommended Diet: Low Fiber Diet Procedures Procedures Performed: Abd/pelvis CT Pending Studies Studies pending at discharge: no Medical Emergencies . Who to Call and When: Medical Emergencies: If at any time you feel your situation is an emergency, please call 911 immediately. . Non-Emergent Contact Non-Emergency issues call your: Primary Care Provider, Route Sales Trainee Call Non-Emergent contact if: you have a fever, you have any medication questions . Past History Medical & Surgical History: (1) Ulcerative colitis . "Provider Documentation" section prepared by Leeanne Dunn. . VTE Core Measure Inpt VTE Proph given/why not?: SCD's
--- NOTE | 2017-04-29 15:23 | Discharge Summary ---
Discharge Summary Date of Service Apr 29, 2017. Discharge Summary Admission Date: Apr 27, 2017 at 02:04 Discharge Date: Apr 29, 2017 Discharge Disposition: Home Principal Diagnosis: Ulcerative colitis Immunizations: Have You Had Influenza Vaccine: Unknown History of Tetanus Vaccine?: Unknown History of Pneumococcal: Unknown History of Hepatitis B Vaccine: Unknown Procedures: ABD/PELVIS IV AND ORAL CONT CT DOSE: 395.32 mGy.cm HISTORY: Pain. Edema. Proctitis. eval for obstruction TECHNIQUE: Multiaxial CT images of the abdomen and pelvis were performed following the use of intravenous and oral contrast. A dose lowering technique was utilized adhering to the principles of ALARA. COMPARISON STUDY: 03/10/2017 FINDINGS: Lung bases are clear. Moderate wall thickening of the rectosigmoid colon consistent with a nonspecific colitis. Mild pericolonic infiltrative change. No evidence for abscess collection or obstructive process. no evidence for free air. The appendix is normal. IMPRESSION: 1. Moderate wall thickening/edema of the rectosigmoid with mild pericolonic infiltrative change. 2. This appearance suggests a nonspecific colitis/proctitis. 3. No evidence for abscess collection or obstruction. Consultations: Dr. Lees and Jerry Woodruff from GI Medication Reconciliation New Medications: Prednisone (Prednisone) 20 Mg Tab 40 MG PO DAILY for 4 Days, #8 TAB Hydrocodone/Acetaminophen 7.5MG/325MG ([place] 7.5MG/325MG) Tab 1 TAB PO Q4H PRN for Pain for 3 Days, #18 TAB PRN PAIN Mesalamine (Mesalamine) 4 Gm/60 Ml Enem 4 GM OH QPM for 7 Days, #7 DOSE Continued Medications: Dicyclomine Hcl (Bentyl) 10 Mg Cap 10 MG PO TID Infliximab (Remicade) 100 Mg/10 Ml Inj Unknown Dose IV Q8WK Methotrexate (Methotrexate) 2.5 Mg Tab 6 TAB PO WK ON THURSDAYS Omeprazole (Prilosec) 40 Mg Cap 40 MG PO DAILY PRN for GERD Ondasetron Odt (Zofran Odt) 4 Mg Tab 4 MG SL Q6H PRN for Nausea Discontinued Medications: Hydrocortisone Acetate (Rectal (Anusol-Hc) 25 Mg Sup 25 MG OH BID, SUP Discharge Exam ROS Constitutional: no chills, aches, sweats or fever Respiratory: no sob,cough, sputum, or wheezing Cardiac: no chest pain, palpitations, edema, orthopnea or lightheadedness GI: no abdominal pain, nausea, vomiting, did report decreased diarrhea : no dysuria or hesitancy Extremities: no joint pain or weakness Skin: no rash All other systems reviewed and negative General: no distress Eyes: normal inspection, PERLL Respiratory: chest non tender, clear to auscultation, normal breath sounds, no respiratory distress, no accessory muscle use Cardiac: regular rate and rhythm, no rub or gallop, no murmur, no edema, no jvd GI/: active bowel sounds, no abd pain or tenderness, soft, non distended Extremities: normal range of motion, normal strength, non tender Neuro/Psych: alert and oriented x 3, normal mood and affect Skin: normal color, dry Hospital Course This is a 22 yo M h/o Ulcerative Colitis, patient of Dr. Rice, who presented with abdominal pain. He was initially diagnosed 2 years go and initially treated with Mesalamine and Humira, neither of which significantly improved his symptoms. He was subsequently started on Remicade and Methotrexate, which he remains on currently. He was recently admitted to [facility] 03/10-03/12 for abdominal pain . He was given Zosyn IV q6hrs, Solu-Medrol 60 mg IV q6 hrs and discharged on Prednisone. He finished prednisone last Friday. On admission he he had been experiencing 2 wks h/o generalized abdominal discomfort of lower abdomen (01/05).He also reported rectal pain, swelling of rectum in addition to fever, chills, N/V, and diarrhea w/o hematochezia. He had not been taking methotrexate for 3 days at time of admission. His last Remicade dose was last dose , which he receives q8wks at [facility] cancer center. Acute Ulcerative Colitis flare - afebrile for over 24 hours, pain greatly reduced - will send home with three days of [place] q4h for pain as he was still requiring intermittent IV dilaudid at discharge - Tolerating advancing diet to low fiber today - C diff negative, stool cultures negative - Received IV zosyn and flagyl given fever/tachycardia x 3 days, no need for continued abx for discharge as patient's cultures negative - Received Methylpred to 60 IV tid and then bid. Discharged with 40 mg po prednisone daily per GI recommendation until follow up with Dr. Rice - Continue Row[place] (mesalamine) enema qpm per GI recs. Discussed with patient and he felt comfortable administering this medication to himself I agree with FRUIT WORKER assessment and plan and have seen and examined pt myself Resting comfortably in bed VSS Labs reviewed Diet advanced to low fiber diet Abd pain improved, no dilaudid today Likely UC flare GI consult appreciated Discontinue antibx and wean IV steroids to PO, will initiate prednisone 40 mg PO daily until follow up with Dr. Rice C diff neg and stool cx neg at this time Start on [place] enema qHS per GI and continue on DC Total Time Spent: Greater than 30 minutes This includes examination of the patient, discharge planning, medication reconciliation, and communication with other providers. Discharge Instructions Please refer to the electronic Patient Visit Report (Discharge Instructions) for additional information. Follow-Up Dr. Rice 05/01/17 Additional Copies To Aston Rice D.O.
[2017-04-29 16:10] VITALS: BP 111/75; PULSE 59; TEMP 36.7; O2SAT 98
[2017-04-29] MEDS ORDERED: METHYLPREDNISOLONE IV 20 MG in SYRINGE 0 ML IV SCH (18:00)
== END 2017-04-29 18:35 | disposition home or self-care (01) | DRG 387 ==
LOC: C.EDB 20:41 → C.3E 04-27 02:04 → ENRESERV 04-27 02:36 → C.MSN 04-27 13:20
PROVIDERS: ADMIT Hospitalist; ATTEND Hospitalist
DX: K51.80 Other ulcerative colitis without complications (principal); D64.9 Anemia, unspecified; Z80.9 Family history of malignant neoplasm, unspecified

== ENCOUNTER → 2017-12-05 | Outpatient (CLI) | payer OTHER ==
[~2017-12-05] MED LIST changes: +HYDR-3983 PO; +PRD20 PO; -PRED10TA PO; +RWSE PR
[2017-12-05 17:09] LABS: ALBUMIN 3.9 gm/dl (3.4-5.0); ALKALINE PHOSPHATASE 47 U/L (45-117); ALT/SGPT 28 U/L (12-78); AST/SGOT 21 U/L (15-37); BLOOD UREA NITROGEN 14 mg/dl (7-18); CALCIUM 8.5 mg/dl (8.5-10.1); CARBON DIOXIDE 26 mmol/L (21-32); CREATININE 1.19 mg/dl (0.60-1.40); GLUCOSE 80 mg/dl (70-99); POTASSIUM 3.9 mmol/L (3.5-5.1); SODIUM 140 mmol/L (136-145); TOTAL PROTEIN 7.3 gm/dl (6.4-8.2); TRANSFERRIN 346 mg/dl (200-360)
[2017-12-05 17:14] LABS: HEMATOCRIT 34.7 % (42-52); HEMOGLOBIN 9.7 g/dL (14.0-18.0); MEAN CELL VOLUME 71.7 fL (80-100); MEAN PLATELET VOLUME 9.8 fL (7.4-10.4); PLATELET COUNT 300 K/uL (130-400); RED CELL DISTRIBUTION WIDTH CV 18.6 % (11.5-14.5)
[2017-12-05 17:18] LABS: BASO % 1.7 %; BASO ABS # 0.06 K/uL (0-0.2); EOS % 8.9 %; EOS ABS # 0.31 K/uL (0-0.5); IG# 0.01 K/uL (0.00-0.02); LYMPH % 27.4 %; LYMPH ABS # 0.96 K/uL (1.2-3.4); MONO % 9.7 %; MONO ABS # 0.34 K/uL (0.11-0.59); NEUT ABS # 1.82 K/uL (1.4-6.5)
== END | disposition home or self-care (01) ==
LOC: C.LABPBG 13:45
PROVIDERS: ATTEND Registered Nurse
DX: D50.9 Iron deficiency anemia, unspecified (principal)